=== PATIENT | male | born 1935 | race Caucasian/White ===

== ENCOUNTER 2017-03-12 20:56 | Inpatient (IN) | payer OTHER, MEDICARE ==
[~2017-03-12] VITALS: Ht 180.3 cm; Wt 97.8 kg
[~2017-03-12 20:56] MED LIST: ACT/15 PO; ASPI325T4 PO; CLC100 PO; CYAN500T13 PO; IBUP-1050 PO; SIMV20TA5 PO; TEMA30CA4 PO
--- NOTE | 2017-03-12 21:45 | EMERGENCY ROOM VISIT NOTE ---
History Report prepared by Pattie: Chelsea Harper Under the Supervision of: Dr. Yunier Thompson M.D. First contact with patient: 21:16 Chief Complaint: CHEST PAIN Stated Complaint: CHEST PAIN History of Present Illness The patient is an 81 year old male who presents to the Emergency Room with complaints of constant chest pressure that started tonight. Associated symptoms include fatigue. The patient was evaluated [facility] where he was found to have a high resting heart rate. The patient wore a 24 hour Halter Monitor yesterday. Monitor reading showed the patient's heart was "stopping", per patient's . Upon embroidery designer review today, the patient was sent directly to the ED. Patient notes that he was started on Diltazem 2 days ago, but was told by his embroidery designer today to stop taking this medication. Patient has a history of diabetes and colorectal cancer. He is in remission of this cancer at this time. Patient denies a history of atrial fibrillation. Patient denies shortness of breath, dizziness, weakness, or any additional associated symptoms. Source of History: patient, spouse/significant other Onset: Tonight Position: chest Timing: constant Modifying Factors (Worsening): other (None) Associated Symptoms: + fatigue, No SOB, No weakness Review of Systems See HPI for pertinent positives & negatives. A total of 10 systems reviewed and were otherwise negative. Past Medical & Surgical Medical Problems: (1) Colorectal cancer (2) Diabetes (3) Tachy-ifeoma syndrome Old medical records were reviewed. Nurse's notes were reviewed and I agree with. Family History Unknown Social History Smoking Status: Former Smoker Alcohol Use: none Drug Use: none Marital Status: Housing Status: lives with family Occupation Status: retired Current/Historical Medications Scheduled Albuterol Hfa (Ventolin Hfa), 2 PUFFS INH PRN UD Aspirin (Aspirin), 325 MG PO DAILY Cyanocobalamin (Vitamin B12 500MCG), 2,000 MCG PO DAILY Diltiazem Hcl Ext Rel (Tiazac), 120 MG PO DAILY Pioglitazone (Actos), 1 TAB PO DAILY Sildenafil Citrate (Viagra), 100 MG PO PRN Simvastatin (Zocor), 40 MG PO QPM Temazepam (Restoril), 30 MG PO HS Allergies Coded Allergies: Naproxen (Verified Allergy, Unknown, GI UPSET, 11/12/14) Zolpidem (Verified Adverse Reaction, Unknown, "WEIRD DREAMS", 11/12/14) Physical Exam Vital Signs Date Time Temp Pulse Resp B/P Pulse Ox O2 Delivery O2 Flow Rate FiO2 03/13/17 01:03 105 03/12/17 23:51 105 18 133/61 95 Room Air 03/12/17 21:37 94 03/12/17 21:15 93 Room Air 03/12/17 21:15 93 Room Air 03/12/17 21:00 36.6 139 18 140/86 94 Room Air Physical Exam General: Non ill appearing, older male in no acute distress. HEENT: Normal cephalic atraumatic. Pupils are equal round and reactive to light. Sclera anicteric. Extraocular movements are intact. Oropharynx is pink with moist mucous membranes. No swelling of the mouth lips or tongue. Neck: Supple with a midline trachea. No meningeal signs or stiffness, no JVD or bruits. No Stridor. Chest: Clear to auscultation bilaterally. No wheezes or rhonchi. No increased work of breathing. Heart: Irregularly irregular rhythm, mildly tachycardic in high 90s, low 100s. Abdomen: Soft nontender, nondistended without rebound guarding or rigidity. Extremities: No cyanosis clubbing or edema. No calf tenderness or assymetry Spine/Back. Non tender to palpation. No CVA tenderness Skin: Good turgor without rashes. Neurologic exam: Cranial nerves two through 12 are intact. Motor and sensation are intact and symmetrical throughout. Medical Decision & Procedures ER Provider Diagnostic Interpretation: X-ray results as stated below per interpretation by me and the radiologist: CHEST ONE VIEW PORTABLE CLINICAL HISTORY: Atypical chest pain COMPARISON STUDY: No previous studies for comparison. FINDINGS: The study was obtained in apical lordotic fashion. The heart is borderline enlarged. There is no failure. There is no lobar consolidation. There is indistinctness left heart border likely related to technical factors. There is equivocal 1 cm left basilar nodule. This potentially represents a nipple shadow. A nonemergent PA and lateral chest x-ray with nipple markers is recommended in follow-up.[ IMPRESSION: 1. No evidence of failure. No evidence of lobar consolidation 2. 1 cm left basilar nodule versus nipple shadow. Electronically signed by: George Ornelas M.D. 03/12/2017 10:02 PM Dictated Date/Time: 03/12/2017 10:00 PM Laboratory Results 03/12/17 21:15 Red Blood Count 4.91, Mean Corpuscular Volume 91.9, Mean Corpuscular Hemoglobin 30.5, Mean Corpuscular Hemoglobin Concent 33.3, Mean Platelet Volume 10.6, Neutrophils (%) (Auto) 61.8, Lymphocytes (%) (Auto) 28.3, Monocytes (%) (Auto) 5.3, Eosinophils (%) (Auto) 4.0, Basophils (%) (Auto) 0.3, Neutrophils # (Auto) 4.28, Lymphocytes # (Auto) 1.96, Monocytes # (Auto) 0.37, Eosinophils # (Auto) 0.28, Basophils # (Auto) 0.02 03/12/17 21:15 Test 03/12/17 21:15 03/12/17 21:44 White Blood Count 6.93 K/uL (4.8-10.8) Red Blood Count 4.91 M/uL (4.7-6.1) Hemoglobin 15.0 g/dL (14.0-18.0) Hematocrit 45.1 % (42-52) Mean Corpuscular Volume 91.9 fL (80-100) Mean Corpuscular Hemoglobin 30.5 pg (25-34) Mean Corpuscular Hemoglobin Concent 33.3 g/dl (32-36) Platelet Count 220 K/uL (130-400) Mean Platelet Volume 10.6 fL (7.4-10.4) Neutrophils (%) (Auto) 61.8 % Lymphocytes (%) (Auto) 28.3 % Monocytes (%) (Auto) 5.3 % Eosinophils (%) (Auto) 4.0 % Basophils (%) (Auto) 0.3 % Neutrophils # (Auto) 4.28 K/uL (1.4-6.5) Lymphocytes # (Auto) 1.96 K/uL (1.2-3.4) Monocytes # (Auto) 0.37 K/uL (0.11-0.59) Eosinophils # (Auto) 0.28 K/uL (0-0.5) Basophils # (Auto) 0.02 K/uL (0-0.2) RDW Standard Deviation 46.7 fL (36.4-46.3) RDW Coefficient of Variation 13.9 % (11.5-14.5) Immature Granulocyte % (Auto) 0.3 % Immature Granulocyte # (Auto) 0.02 K/uL (0.00-0.02) Prothrombin Time 11.2 SECONDS (9.0-12.0) Prothromb Time International Ratio 1.0 (0.9-1.1) Activated Partial Thromboplast Time 28.9 SECONDS (21.0-31.0) Partial Thromboplastin Ratio 1.1 Anion Gap 11.0 mmol/L (3-11) Est Creatinine Clear Calc Drug Dose 68.8 ml/min Estimated GFR () 81.4 Estimated GFR (Non- 70.3 BUN/Creatinine Ratio 19.3 (10-20) Calcium Level 9.1 mg/dl (8.5-10.1) Total Bilirubin 0.5 mg/dl (0.2-1) Direct Bilirubin 0.1 mg/dl (0-0.2) Aspartate Amino Transf (AST/SGOT) 14 U/L (15-37) Alanine Aminotransferase (ALT/SGPT) 22 U/L (12-78) Alkaline Phosphatase 81 U/L (45-117) Total Creatine Kinase 93 U/L (39-308) Creatine Kinase MB 2.4 ng/ml (0.5-3.6) Creatine Kinase MB Ratio 2.6 (0-3.0) Total Protein 7.6 gm/dl (6.4-8.2) Albumin 3.9 gm/dl (3.4-5.0) Lipase 86 U/L (73-393) Thyroid Stimulating Hormone (TSH) 2.080 uIu/ml (0.300-4.500) Bedside Troponin I 0.010 ng/ml (0-0.045) NI-Slb-C-Type Natriuretic Peptide 691 pg/ml (0-1800) Laboratory studies as stated above per my review. ECG Indication: chest pain Rate (beats per minute): 107 Rhythm: atrial fibrillation Findings: PVC (Occasional ) Comparison ECG Date: November 12, 2015 Change: A fib replaced normal sinus rhythm. ED Course 2117: Past medical records reviewed. The patient was evaluated in room C8, and a complete history and physical examination were performed. 2215: Upon reevaluation, the patient is resting comfortably. 2320: I discussed the treatment plan at this time with the patient and his family. They are agreeable. 2348: I discussed the patient's case with [place] [place] He will evaluate the patient for further management and care. Medical Decision Differentials include, but are not limited to; atrial fibrillation, acute coronary syndrome, CHF, sinus pauses. This patient comes in as described above. He was placed in room CVA. He is here for treatment and evaluation of sinus pauses. He has new onset A. fib and was started on calcium channel brandy the [place] put a Holter monitor on him which he finished this morning. He got called this evening and he had sinus pauses up to 5 seconds .he feels fine at present, he has minimal vague chest discomfort which he thinks he is just anxious about. He has no shortness breath .he's had no syncope or near-syncope. EKG shows A. fib with borderline tachycardia at times. He has no elevation of troponin or any evidence to suggest congestive heart failure, pneumonia, or pneumothorax. I do think he needs be admitted for cardiac evaluation and likely pacemaker placement given his Holter monitor. I have consulted Dr. Handley who saw the ER will admit him for these measures.. Consults Time Called: [phone] Consulting Physician: Dr. Blanca [place] Returned Call: [phone] I discussed the patient's case with Dr. Blanca [place] [place] He will evaluate the patient for further management and care. Impression Primary Impression: Atrial fibrillation Additional Impression: Sinus pause Scribe Attestation The scribe's documentation has been prepared under my direction and personally reviewed by me in its entirety. I confirm that the note above accurately reflects all work, treatment, procedures, and medical decision making performed by me. Departure Information Dispostion Being Evaluated By Hospitalist Parisa Vergara M.D. (PCP) Patient Instructions My [facility] Problem Qualifiers
[2017-03-12 21:51] LABS: BASO % 0.3 %; BASO ABS # 0.02 K/uL (0-0.2); COMPLETE YES; HEMATOCRIT 45.1 % (42-52); IG% 0.3 %; LYMPH % 28.3 %; LYMPH ABS # 1.96 K/uL (1.2-3.4); MEAN CELL VOLUME 91.9 fL (80-100); MEAN CORPUSCULAR HEMOGLOBIN 30.5 pg (25-34); MEAN CORPUSCULAR HGB CONC 33.3 g/dl (32-36); MEAN PLATELET VOLUME 10.6 fL (7.4-10.4); MONO % 5.3 %; NEUT % 61.8 %; PLATELET COUNT 220 K/uL (130-400); RED BLOOD COUNT 4.91 M/uL (4.7-6.1); WHITE BLOOD COUNT 6.93 K/uL (4.8-10.8)
[2017-03-12 21:53] LABS: PARTIAL THROMBOPLASTIN RATIO 1.1; PROTHROMBIN TIME (PATIENT) 11.2 SECONDS (9.0-12.0)
[2017-03-12 21:57] LABS: BUN/CREATININE RATIO 19.3 (10-20); POTASSIUM 3.6 mmol/L (3.5-5.1)
[2017-03-12 22:03] LABS: POINT OF CARE TROPONIN I 0.01 ng/ml (0-0.045)
--- NOTE | 2017-03-12 22:03 | DIAGNOSTIC IMAGING REPORT ---
CHEST ONE VIEW PORTABLE CLINICAL HISTORY: Atypical chest pain COMPARISON STUDY: No previous studies for comparison. FINDINGS: The study was obtained in apical lordotic fashion. The heart is borderline enlarged. There is no failure. There is no lobar consolidation. There is indistinctness left heart border likely related to technical factors. There is equivocal 1 cm left basilar nodule. This potentially represents a nipple shadow. A nonemergent PA and lateral chest x-ray with nipple markers is recommended in follow-up.[ IMPRESSION: 1. No evidence of failure. No evidence of lobar consolidation 2. 1 cm left basilar nodule versus nipple shadow. Electronically signed by: George Ornelas M.D. 03/12/2017 10:02 PM Dictated Date/Time: 03/12/2017 10:00 PM
[2017-03-12 22:08] LABS: CKMB/CK RATIO 2.6 (0-3.0); THYROID STIMULATING HORMONE 2.08 uIu/ml (0.300-4.500)
[2017-03-12 22:26] LABS: CALCIUM 9.1 mg/dl (8.5-10.1)
[2017-03-12] MEDS ORDERED: DILT120C68 PO (22:29)
[2017-03-12] MEDS ORDERED: VNTHFA/IN INH (22:29)
[2017-03-12] MEDS ORDERED: ACT30 PO (22:29)
[2017-03-12] MEDS ORDERED: SILD100T PO (22:29)
[2017-03-12] MEDS ORDERED: SIMV40TA2 PO (22:29)
--- NOTE | 2017-03-12 23:52 | History and Physical ---
History & Physical Date & Time of Service: March 12, 2017 at 23:52 Chief Complaint: Chest Pain Primary Care Physician: Parisa Owens M.D. History of Present Illness Source: patient, family, spouse The patient is an 81-year-old male who presents to the emergency department with constant chest pressure and fatigue that began earlier in the evening prior to arrival. He went [facility] for [facility] assessment 4 days ago, and was found to have tachycardia at rest. The patient had been started empirically on Cardizem CD 120 mg by mouth daily. He wore a 24-hour Holter monitor yesterday, which was interpreted by Dr. Gates in [place] on the day of admission as showing up to 5 second pauses, at which time he was told by the cuff runner to stop the diltiazem and to come to the emergency department for assessment. Past Medical/Surgical History Medical Problems: (1) Colorectal cancer Status: Resolved (2) Diabetes Status: Chronic Family History Unknown Social History Smoking Status: Former Smoker Alcohol Use: none Drug Use: none Marital Status: Housing status: lives with family Occupational Status: retired Immunizations History of Influenza Vaccine: N/A History of Tetanus Vaccine?: Yes History of Pneumococcal: Yes Pneumococcal Date: Aug 14, 2008 History of Hepatitis B Vaccine: No Multi-Drug Resistant Organisms History of MDRO: No Allergies Coded Allergies: Naproxen (Verified Allergy, Unknown, GI UPSET, 11/12/14) Zolpidem (Verified Adverse Reaction, Unknown, "WEIRD DREAMS", 11/12/14) Home Medications Scheduled Albuterol Hfa (Ventolin Hfa), 2 PUFFS INH PRN UD Aspirin (Aspirin), 325 MG PO DAILY Cyanocobalamin (Vitamin B12 500MCG), 2,000 MCG PO DAILY Diltiazem Hcl Ext Rel (Tiazac), 120 MG PO DAILY Pioglitazone (Actos), 1 TAB PO DAILY Sildenafil Citrate (Viagra), 100 MG PO PRN Simvastatin (Zocor), 40 MG PO QPM Temazepam (Restoril), 30 MG PO HS Review of Systems Constitutional: No chills, No fatigue, No fever, No problem reported, No sweats , No weakness, No weight loss Eyes: No diplopia, No discharge, No eye pain, No problem reported, No redness, No worsening of vision ENT: No dental problems, No hearing loss, No nasal symptoms, No problem reported, No sore throat, No tinnitus, No trouble swallowing, No unusual epistaxis Respiratory: No cough, No dyspnea at rest, No dyspnea on exertion, No hemoptysis, No problem reported, No shortness of breath, No sputum, No wheezing Cardiovascular: + chest pain, + palpitations, No PND, No claudication, No edema , No orthopnea Abdomen: No GI bleeding, No constipation, No diarrhea, No nausea, No pain, No problem reported, No vomiting Musculoskeletal: No calf pain, No joint pain, No muscle pain, No problem reported, No swelling Genitourinary - Male: No dysuria, No hematuria, No impotence, No lesions, No penile discharge, No problem reported, No urinary frequency, No urinary hesitancy, No urinary incontinence, No urinary retention, No urinary urgency Neurologic: No balance problems, No memory loss, No numbness/tingling, No paralysis, No problem reported, No vertigo, No weakness Psychiatric: No anhedonism, No anxiety, No depression symptoms, No insomnia, No problem reported, No substance abuse Endocrine: No excessive thirst, No excessive urination, No fatigue, No problem reported Hematologic / Lymphatic: No abnormal bleeding/bruising, No clotting problems, No night sweats, No problem reported, No swollen lymph nodes Integumentary: No bleeding, No color change, No itch, No new/changing skin lesions, No problem reported, No rash Allergic / Immunologic: No environmental allergies, No food allergies, No frequent infections, No hives, No pet sensitivities, No poor healing, No problem reported, No prolonged convalescence, No seasonal allergies Physical Exam Vital Signs Date Time Temp Pulse Resp B/P Pulse Ox O2 Delivery O2 Flow Rate FiO2 03/12/17 23:51 105 18 133/61 95 Room Air 03/12/17 21:37 94 03/12/17 21:15 93 Room Air 03/12/17 21:15 93 Room Air 03/12/17 21:00 36.6 139 18 140/86 94 Room Air General Appearance: WD/WN, no apparent distress Head: normocephalic, atraumatic Eyes: normal inspection, PERRL, EOMI, sclerae normal ENT: normal ENT inspection, hearing grossly normal, pharynx normal Neck: supple, no adenopathy, thyroid normal, no JVD, no carotid bruits, trachea midline Respiratory/Chest: chest non-tender, lungs clear, normal breath sounds, no respiratory distress, no accessory muscle use Cardiovascular: no edema, no gallop, no JVD, no murmur, normal peripheral pulses, + irregularly irregular (minor) Abdomen/GI: normal bowel sounds, non tender, soft, no organomegaly, no pulsatile mass Back: normal inspection, no CVA tenderness, no muscle spasm, normal range of motion Extremities/Musculoskelatal: normal inspection, no calf tenderness, normal capillary refill, no pedal edema, normal range of motion, non-tender Neurologic/Psych: document control assistant II-XII nml as tested, no motor/sensory deficits, alert, normal mood/affect, normal reflexes, oriented x 3 Skin: normal color, warm/dry, no rash Lymphatic: no adenopathy Diagnostics Laboratory Results Results Past 24 Hours Test 03/12/17 21:15 03/12/17 21:44 Range/Units White Blood Count 6.93 4.8-10.8 K/uL Red Blood Count 4.91 4.7-6.1 M/uL Hemoglobin 15.0 14.0-18.0 g/dL Hematocrit 45.1 42-52 % Mean Corpuscular Volume 91.9 80-100 fL Mean Corpuscular Hemoglobin 30.5 25-34 pg Mean Corpuscular Hemoglobin Concent 33.3 32-36 g/dl Platelet Count 220 130-400 K/uL Mean Platelet Volume 10.6 7.4-10.4 fL Neutrophils (%) (Auto) 61.8 % Lymphocytes (%) (Auto) 28.3 % Monocytes (%) (Auto) 5.3 % Eosinophils (%) (Auto) 4.0 % Basophils (%) (Auto) 0.3 % Neutrophils # (Auto) 4.28 1.4-6.5 K/uL Lymphocytes # (Auto) 1.96 1.2-3.4 K/uL Monocytes # (Auto) 0.37 0.11-0.59 K/uL Eosinophils # (Auto) 0.28 0-0.5 K/uL Basophils # (Auto) 0.02 0-0.2 K/uL RDW Standard Deviation 46.7 36.4-46.3 fL RDW Coefficient of Variation 13.9 11.5-14.5 % Immature Granulocyte % (Auto) 0.3 % Immature Granulocyte # (Auto) 0.02 0.00-0.02 K/uL Prothrombin Time 11.2 9.0-12.0 SECONDS Prothromb Time International Ratio 1.0 0.9-1.1 Activated Partial Thromboplast Time 28.9 21.0-31.0 SECONDS Partial Thromboplastin Ratio 1.1 Sodium Level 140 136-145 mmol/L Potassium Level 3.6 3.5-5.1 mmol/L Chloride Level 103 98-107 mmol/L Carbon Dioxide Level 26 21-32 mmol/L Anion Gap 11.0 3-11 mmol/L Blood Urea Nitrogen 19 7-18 mg/dl Creatinine 1.00 0.60-1.40 mg/dl Est Creatinine Clear Calc Drug Dose 68.8 ml/min Estimated GFR () 81.4 Estimated GFR (Non- 70.3 BUN/Creatinine Ratio 19.3 10-20 Random Glucose 202 70-99 mg/dl Calcium Level 9.1 8.5-10.1 mg/dl Total Bilirubin 0.5 0.2-1 mg/dl Direct Bilirubin 0.1 0-0.2 mg/dl Aspartate Amino Transf (AST/SGOT) 14 15-37 U/L Alanine Aminotransferase (ALT/SGPT) 22 12-78 U/L Alkaline Phosphatase 81 45-117 U/L Total Creatine Kinase 93 39-308 U/L Creatine Kinase MB 2.4 0.5-3.6 ng/ml Creatine Kinase MB Ratio 2.6 0-3.0 Total Protein 7.6 6.4-8.2 gm/dl Albumin 3.9 3.4-5.0 gm/dl Lipase 86 73-393 U/L Thyroid Stimulating Hormone (TSH) 2.080 0.300-4.500 uIu/ml Bedside Troponin I 0.010 0-0.045 ng/ml IV-Vck-I-Type Natriuretic Peptide 691 0-1800 pg/ml Diagnostic Radiology Patient Name: ANGELITA BENSON Unit Number: [id number] Dictated: 03/12/172199 Transcribed: 03/12/172199 ARG Printed Date/Time: [~ rep prt dt]/[~ rep prt tm] [~ rep ct labl] - [~ rep ct ivnm] [facility] [place] [address] Dictated: 03/12/172199 Transcribed: 03/12/172199 ARG Printed Date/Time: [~ rep prt dt]/[~ rep prt tm] [~ rep ct labl] - [~ rep ct ivnm] CHEST ONE VIEW PORTABLE CLINICAL HISTORY: Atypical chest pain COMPARISON STUDY: No previous studies for comparison. FINDINGS: The study was obtained in apical lordotic fashion. The heart is borderline enlarged. There is no failure. There is no lobar consolidation. There is indistinctness left heart border likely related to technical factors. There is equivocal 1 cm left basilar nodule. This potentially represents a nipple shadow. A nonemergent PA and lateral chest x-ray with nipple markers is recommended in follow-up.[ IMPRESSION: 1. No evidence of failure. No evidence of lobar consolidation 2. 1 cm left basilar nodule versus nipple shadow. Electronically signed by: George Ornelas M.D. 03/12/2017 10:02 PM Dictated Date/Time: 03/12/2017 10:00 PM The status of this report is Signed. Draft = Not yet reviewed or approved by Radiologist. Signed = Reviewed and approved by Radiologist. <AttendingPhy></AttendingPhy> <FamilyPhy>Parisa Owens M.D.</FamilyPhy> <PrimaryPhy>Parisa Owens M.D.</PrimaryPhy> <UnitNumber>[id number]</ UnitNumber> <VisitNumber>[id number]</VisitNumber> <PatientName>ANGELITA BENSON</PatientName> <DateOfBirth>1935</DateOfBirth> <Location>[facility]</Location > <ServiceDate>03/12/17</ServiceDate> <MNE>ESINDI</MNE> <OrderingPhy>Yunier Thompson M.D.</OrderingPhy> <OrderingPhyMNE>f rep ord dr sheppard</OrderingPhyMNE> < DictatingPhyMNE>f rep dict dr sheppard</DictatingPhyMNE> <CCListMNE>f rep ct yanete</ CCListMNE> <AdmittingPhyMNE>f pt admit dr sheppard</AdmittingPhyMNE> <AttendingPhyMNE >f pt attend dr sheppard</AttendingPhyMNE> <ConsultingPhyMNE>f pt consult dr sheppard</ConsultingPhyMNE> <FamilyPhyMNE>f pt fam dr sheppard</FamilyPhyMNE> <OtherPhyMNE>f pt other dr sheppard</OtherPhyMNE> < PrimaryPhyMNE>f pt prim care dr sheppard</PrimaryPhyMNE> <ReferringPhyMNE>f pt referring dr sheppard</ReferringPhyMNE> EKG EKG shows atrial fibrillation with RVR at 107 bpm, with old anteroseptal infarct , in no acute ST-T changes. Impression Assessment and Plan Tachybradycardia syndrome--patient's initial episodes of increased heart rate were found on a routine physical examination. He became bradycardic with pauses when placed on Cardizem CD [address] EKG shows atrial fibrillation with RVR, however, there was no mention to my knowledge and the 24- hour monitor of atrial fibrillation events. The patient be admitted to telemetry unit for serial cardiac enzymes, cardiac rhythm monitoring. We'll hold off ordering a repeat echocardiogram as one was just done in [place], and will try to get all records sent here. We'll consult cardiology Dr. Story. Continue aspirin 325 mg by mouth daily and hold diltiazem extended release heart 20 mg by mouth daily. Diabetes mellitus--hold pioglitazone daily. Place on Accu-Cheks before meals and at bedtime with NovoLog coverage. Hypercholesterolemia--continue simvastatin 40 mg every afternoon. Insomnia--continue temazepam 30 will grams by mouth at bedtime. Vitamin B12 deficiency--continue supplement thousand micrograms by mouth daily. COPD--hold Ventolin HFA. Level of Care Telemetry Advanced Directives Existing Advance Directive: No Existing Living Will: No Existing Power of Processing Supervisor: No Resuscitation Status FULL RESUSCITATION VTE Prophylaxis Given or contraindicated: SCD's
[2017-03-13] VITALS (7 sets, daily range): BP systolic 98–145; BP diastolic 58–89; PULSE 83–142; TEMP 36.3–36.7; O2SAT 93–97; Ht 180.3 cm; Wt 97.8 kg
[2017-03-13] MEDS ORDERED: GLUCOSE 40% GEL 15 GM TUBE PO PRN (01:30)
[2017-03-13] MEDS ORDERED: NITROGLYCERIN 0.4 MG SL PER TAB CHARGE SL PRN (01:30)
[2017-03-13] MEDS ORDERED: GLUCOSE 10 TABS/TUBE PO PRN (01:30)
[2017-03-13] MEDS ORDERED: ACETAMINOPHEN 325 MG TAB PO PRN (01:30)
[2017-03-13] MEDS ORDERED: GLUCAGON FOR INJ 1 MG VIAL SQ PRN (01:30)
[2017-03-13] MEDS ORDERED: DEXTROSE 50% 50 ML SYR IV PRN (01:30)
[2017-03-13] MEDS ORDERED: ONDANSETRON INJ 2 MG/ML 2 ML VIAL IV PRN (01:30)
[2017-03-13] MEDS: ASPIRIN 325 MG ECTAB PO SCH (08:19)
[2017-03-13] MEDS: CYANOCOBALAMIN 500 MCG TAB (VIT B-12) PO SCH (08:20)
[2017-03-13] MEDS: INSULIN ASPART 100 UNITS/ML 3 ML PEN SC SCH ×4 (08:23→21:00)
[2017-03-13 09:13] LABS: HEMATOCRIT 40.9 % (42-52); MEAN CELL VOLUME 91.9 fL (80-100); MEAN CORPUSCULAR HEMOGLOBIN 30.1 pg (25-34); MEAN CORPUSCULAR HGB CONC 32.8 g/dl (32-36); MEAN PLATELET VOLUME 10.3 fL (7.4-10.4); PLATELET COUNT 199 K/uL (130-400); RED BLOOD COUNT 4.45 M/uL (4.7-6.1); WHITE BLOOD COUNT 5.09 K/uL (4.8-10.8)
[2017-03-13 09:37] LABS: BUN/CREATININE RATIO 25.9 (10-20); CALCIUM 8.3 mg/dl (8.5-10.1); CREATININE 0.9 mg/dl (0.60-1.40); POTASSIUM 3.7 mmol/L (3.5-5.1)
[2017-03-13 10:35] LABS: MAGNESIUM 2.1 mg/dl (1.8-2.4)
[2017-03-13 10:57] LABS: CKMB/CK RATIO 2.6 (0-3.0)
--- NOTE | 2017-03-13 11:16 | CARDIOLOGY CONSULTATION ---
DATE OF CONSULTATION: 03/13/2017 DATE OF CONSULTATION: 03/13/2017. REQUESTING PHYSICIAN: Dr. Adam Blanca. REASON FOR CONSULTATION: Atrial fibrillation with a rapid ventricular response and subsequent pauses. CIRCUIT COURT JUDGE: Costa Collins D.O., [facility]. Dear Dr. Blanca: Thank you for requesting cardiology consultation on Kp in regards to the [facility] [place] He went for a regular evaluation and was found to be in atrial fibrillation with a rapid ventricular response. Those records are currently unavailable, but it sounds like his heart rate was in the 130s and 140s. He was placed on diltiazem at that point, an echocardiogram and Holter monitor were ordered. After the Holter monitor was returned, he received a phone call noting that he had 5 second pauses. The timing of those is unclear as to whether they occurred while he was sleeping or during the day and diltiazem was stopped and he was told to come to the closest Emergency Room. He denies any chest pain, chest pressure, chest heaviness. He describes some fatigue over the last month or so. He describes a viral illness about a month ago where he had some GI distress and abdominal discomfort and he describes minimal amount of shortness of breath since then. I did question him as to climbing stairs, he notes he has a basement on the second floor and has been able to climb 2 flights of stairs without significant difference. He denies any presyncope, syncope. He has had no lightheadedness or dizziness. He denies any chest pain or chest pressure. He is able to walk to the mailbox. He is able to walk in a grocery store, all that without any significant change. He denies a cough, fevers, chills, sweats, bleeding, bruising, dark stools, black stools. He does have chronically loose stools since he was treated for colon cancer. He does note that he bruises easily. He notes some musculoskeletal discomfort. The rest of review of systems otherwise negative. PAST MEDICAL HISTORY: 1. Status post resection for colon cancer. He did not require chemotherapy or radiation. 2. Diabetes mellitus type 2. 3. Atrial fibrillation of unknown duration. 4. Holter monitor with 5 second pauses and on the monitor here he had a second pause at 6:00 a.m. ALLERGIES: NAPROXEN AND ZOLPIDEM. MEDICATIONS: Reviewed in electronic medical record. SOCIAL HISTORY: He worked in [employer]. He lives with his family. He is . He is retired. Denies any alcohol or drug use. He did smoke a pack per day for 40+ years, stopping approximately 20 years ago. PHYSICAL EXAMINATION: GENERAL: He is awake, alert, oriented x3. He is in no acute distress. He looks his stated age, although seems to be more active than most men his age. VITAL SIGNS: His heart rate 95, respirations 18, blood pressure 128/73. Sat 93% on room air. HEAD, EYES, EARS, NOSE, AND THROAT: 2+ carotid upstrokes. No carotid bruits. Jugular venous pressure appeared normal. Sclerae is anicteric. His hearing is normal. LUNGS: Clear to auscultation bilaterally. No rales, rhonchi or wheezing. HEART: Irregular rate and rhythm (tachycardic). No murmurs, rubs or gallops. ABDOMEN: Soft, nontender, nondistended, positive bowel sounds. EXTREMITIES: No clubbing, cyanosis or edema. PSYCHIATRIC: His affect appeared appropriate. NEUROLOGIC: He is awake, alert and oriented x3. DIAGNOSTIC STUDIES: His BMP is normal. His troponin is negative. His ProBNP is normal. His hemoglobin is 13.4, platelet count is 199. His coags were normal. EKG in the Emergency Room atrial fibrillation with a rapid ventricular response at 107 beats per minute, right axis deviation, possible anterior septal VT, age indeterminate. IMPRESSIONS: 1. Atrial fibrillation with a rapid ventricular response. 2. Documented 4-second pause here, although he notes he did not sleep very much last night and believes he was awake at 6:00 a.m. 3. History of a 5 second pause on the Holter from the [facility]. 4. CHADS2-VASc score of 3, that being his age and diabetes. As I discussed with Kp the question is, is he symptomatic with his atrial fibrillation and is he just symptomatic because he has a rapid ventricular response or is he symptomatic because he lost his atrial kick. I discussed it is important to get his echocardiogram report. If his left atrium is significantly dilated then it is unlikely even if we attempted cardioversion that he would stay in sinus rhythm and if that is the case in essence, he has tachybrady syndrome and a pacemaker would be recommended in order to add AV mine blockers to control his rate when he is very fast and given his elevated CHADS2-VASc score, he would need chronic anticoagulation. As best I can tell, he is minimally symptomatic from his Afib and most likely it is related to a rapid ventricular response. We will obtain his echocardiogram as well as his Holter monitor report and then further recommendations will be forthcoming. At this point, I would start low dose AV mine blockers and I would hold off anticoagulating him with 1 of the NOAC's until we determine proceeding with a pacemaker. Thank you for allowing us to participate in his care. All this was discussed with him in detail. EVGENY
--- NOTE | 2017-03-13 11:35 | Hospitalist Progress Note ---
Hospitalist Progress Note Date of Service March 13, 2017. (Mallory Main ., HENRI) Subjective Pt evaluation today including: conversation w/ patient, physical exam, chart review, lab review, review of studies, review of inpatient medication list Pain: None PO Intake: Tolerating PO diet Voiding: no voiding problems Patient reports feeling well. He states that he had felt weak and fatigued earlier, but this has since improved. He no longer complains of any chest pain. He does report some intermittent palpitations. He denies any lightheadedness/dizziness, even upon standing. The patient denies fevers, chills, sweats, chest pain, claudication, cough, wheezing, shortness of breath at rest, dyspnea on exertion, nausea, vomiting, abdominal pain, dysuria, hematuria, urinary retention, paralysis, weakness, numbness and tingling. Additional Comments: See HPI for pertinent positives and negatives. All other systems reviewed and negative. (Mallory Main ., GEORGETTEC) Objective Vital Signs Date Time Temp Pulse Resp B/P Pulse Ox O2 Delivery O2 Flow Rate FiO2 03/13/17 11:05 36.5 127 18 145/89 97 Room Air 03/13/17 08:21 36.7 95 18 128/73 93 Room Air 03/13/17 08:00 Room Air 03/13/17 04:00 93 Room Air 03/13/17 02:27 36.5 83 18 127/58 93 Room Air 03/13/17 01:32 105 16 133/62 95 Room Air 03/13/17 01:03 105 03/12/17 23:51 105 18 133/61 95 Room Air 03/12/17 21:37 94 03/12/17 21:15 93 Room Air 03/12/17 21:15 93 Room Air 03/12/17 21:00 36.6 139 18 140/86 94 Room Air (Mallory Main PA-C) Physical Exam Notes: General appearance: Well-developed, well-nourished, no apparent distress Head: Normocephalic, atraumatic Eyes: Normal inspection, PERRL, EOMI ENT: Normal ENT inspection, hearing grossly normal, pharynx normal Neck: Supple, no JVD, trachea midline Respiratory/Chest: Lungs clear to auscultation, normal breath sounds, no respiratory distress Cardiovascular: +Irregularly irregular, tachycardic. No gallop, no murmur Abdomen/GI: Normal bowel sounds, non-tender, soft Extremities/Musculoskeletal: Normal inspection, no calf tenderness, no pedal edema Neurological/Psych: Alert, normal mood/affect, oriented x 3 Skin: Normal color, warm/dry, no rash (Mallory Main ., HENRI) Laboratory Results Last 24 Hours Test 03/12/17 21:15 03/12/17 21:44 03/13/17 06:58 03/13/17 09:00 White Blood Count 6.93 K/uL 5.09 K/uL Red Blood Count 4.91 M/uL 4.45 M/uL Hemoglobin 15.0 g/dL 13.4 g/dL Hematocrit 45.1 % 40.9 % Mean Corpuscular Volume 91.9 fL 91.9 fL Mean Corpuscular Hemoglobin 30.5 pg 30.1 pg Mean Corpuscular Hemoglobin Concent 33.3 g/dl 32.8 g/dl Platelet Count 220 K/uL 199 K/uL Mean Platelet Volume 10.6 fL 10.3 fL Neutrophils (%) (Auto) 61.8 % Lymphocytes (%) (Auto) 28.3 % Monocytes (%) (Auto) 5.3 % Eosinophils (%) (Auto) 4.0 % Basophils (%) (Auto) 0.3 % Neutrophils # (Auto) 4.28 K/uL Lymphocytes # (Auto) 1.96 K/uL Monocytes # (Auto) 0.37 K/uL Eosinophils # (Auto) 0.28 K/uL Basophils # (Auto) 0.02 K/uL RDW Standard Deviation 46.7 fL 47.3 fL RDW Coefficient of Variation 13.9 % 14.0 % Immature Granulocyte % (Auto) 0.3 % Immature Granulocyte # (Auto) 0.02 K/uL Prothrombin Time 11.2 SECONDS Prothromb Time International Ratio 1.0 Activated Partial Thromboplast Time 28.9 SECONDS Partial Thromboplastin Ratio 1.1 Sodium Level 140 mmol/L 141 mmol/L Potassium Level 3.6 mmol/L 3.7 mmol/L Chloride Level 103 mmol/L 105 mmol/L Carbon Dioxide Level 26 mmol/L 31 mmol/L Anion Gap 11.0 mmol/L 5.0 mmol/L Blood Urea Nitrogen 19 mg/dl 23 mg/dl Creatinine 1.00 mg/dl 0.90 mg/dl Est Creatinine Clear Calc Drug Dose 68.8 ml/min 76.3 ml/min Estimated GFR () 81.4 92.5 Estimated GFR (Non- 70.3 79.8 BUN/Creatinine Ratio 19.3 25.9 Random Glucose 202 mg/dl 168 mg/dl Calcium Level 9.1 mg/dl 8.3 mg/dl Total Bilirubin 0.5 mg/dl Direct Bilirubin 0.1 mg/dl Aspartate Amino Transf (AST/SGOT) 14 U/L Alanine Aminotransferase (ALT/SGPT) 22 U/L Alkaline Phosphatase 81 U/L Total Creatine Kinase 93 U/L Creatine Kinase MB 2.4 ng/ml Creatine Kinase MB Ratio 2.6 Total Protein 7.6 gm/dl Albumin 3.9 gm/dl Lipase 86 U/L Thyroid Stimulating Hormone (TSH) 2.080 uIu/ml Bedside Troponin I 0.010 ng/ml MG-Hqu-D-Type Natriuretic Peptide 691 pg/ml Bedside Glucose 119 mg/dl Magnesium Level 2.1 mg/dl Test 03/13/17 10:10 Total Creatine Kinase 77 U/L Creatine Kinase MB 2.0 ng/ml Creatine Kinase MB Ratio 2.6 Troponin I 0.017 ng/ml (Mallory Main ., GEORGETTEC) Assessment and Plan 81-year-old male with a history of diabetes mellitus, hyperlipidemia, COPD, and insomnia who presented to the ED with chest pain and fatigue. [facility] and was found to have tachycardia at rest. He was started on Cardizem at that time. He was also put on 24-hour Holter monitor which revealed 5 second pauses, at which time his Cardizem was stopped. The patient was found to be in A. fib with RVR upon arrival to the ED. The patient denies any previous history of A. fib, but notes that he's been more fatigued in the last month. Tachybradycardia syndrome -Admit to telemetry for cardiac monitoring. Patient has remained in A. fib with heart rate mostly in the low 100s with spikes up to the 130s. Patient also had a 4.4 second pause overnight. Pt in 130s during my exam -Hold Cardizem -Consult cardiology, appreciate recs -Recent echocardiogram on 03/10, will obtain records -Cardiac enzymes negative 2. Third set pending -Continue aspirin 325 mg PO qd Afib with RVR--stable, pt currently asymptomatic -Telemetry findings as above -Appreciate cardiology recs -Unknown how long patient has been in this rhythm Diabetes mellitus type 2--no HgbA1c on record -Hold pioglitazone -Insulin sliding scale -Check BSGs q ac and qhs -Check HgbA1c HLD -Continue simvastatin 40 mg PO qd COPD--stable -Hold Ventolin for now due to tachycardia Insomnia- -Continue temazepam 30 mg PO qhs DVT prophylaxis -Enoxaparin 40 mg SC q24h -SCDs Code Status -Level I, FULL RESUSCITATION STATUS This chart was completed in part utilizing [employer] Speech Voice Recognition software. Attempts were made to minimize the grammatical errors, random word insertions, pronoun errors and incomplete sentences. Any formal questions or concerns about the content, text or information contained within the body of this dictation should be directly addressed to the provider for clarification. (Mallory Main ., PA-C) I agree with PA assessment and plan and have seen and examined pt myself Resting comfortably in bed Tachycardia noted No chest pain or palpitations or shortness of breath Awaiting outpatient records Cardiology consulted and awaiting ECHO report ?if need cardioversion vs pacemaker (Joselito Lujan, D.O.)
[2017-03-13 13:21] LABS: ESTIMATED AVERAGE GLUCOSE 154 mg/dl; HA1C FLAG Normal (Normal)
[2017-03-13] MEDS: ENOXAPARIN 40 MG/0.4 ML SYR SQ SCH (14:19)
[2017-03-13] MEDS ORDERED: METOPROLOL TARTRATE 25 MG TAB PO STA (17:25)
[2017-03-13] MEDS ORDERED: NURSING VERBAL MED ORDER ONE (17:30)
[2017-03-13 18:10] LABS: CKMB/CK RATIO 2.8 (0-3.0)
[2017-03-13] MEDS ORDERED: METOPROLOL TARTRATE 25 MG TAB PO SCH (21:00)
[2017-03-13] MEDS: SIMVASTATIN 40 MG TAB PO SCH (21:22)
[2017-03-13] MEDS: TEMAZEPAM 15 MG CAP PO SCH (21:25)
[2017-03-14] VITALS (7 sets, daily range): BP systolic 112–131; BP diastolic 63–81; PULSE 86–139; TEMP 36.5–37.3; O2SAT 94–97
[2017-03-14 06:18] LABS: BASO % 0.6 %; BASO ABS # 0.03 K/uL (0-0.2); COMPLETE YES; EOS % 5.7 %; HEMATOCRIT 39.3 % (42-52); IG% 0.2 %; LYMPH % 27.7 %; MEAN CELL VOLUME 92.9 fL (80-100); MEAN CORPUSCULAR HGB CONC 33.3 g/dl (32-36); MONO % 10.5 %; NEUT % 55.3 %; PLATELET COUNT 183 K/uL (130-400); RED BLOOD COUNT 4.23 M/uL (4.7-6.1); WHITE BLOOD COUNT 5.41 K/uL (4.8-10.8)
[2017-03-14 06:39] LABS: BUN/CREATININE RATIO 27.7 (10-20); CALCIUM 8.2 mg/dl (8.5-10.1); CREATININE 0.89 mg/dl (0.60-1.40); MAGNESIUM 2.2 mg/dl (1.8-2.4); POTASSIUM 3.9 mmol/L (3.5-5.1)
[2017-03-14] MEDS: CYANOCOBALAMIN 500 MCG TAB (VIT B-12) PO SCH (08:00)
[2017-03-14] MEDS: ASPIRIN 325 MG ECTAB PO SCH (08:00)
[2017-03-14] MEDS: INSULIN ASPART 100 UNITS/ML 3 ML PEN SC SCH ×4 (08:03→20:55)
--- NOTE | 2017-03-14 08:30 | Hospitalist Progress Note ---
Hospitalist Progress Note Date of Service March 14, 2017. (Mallory Main ., GEORGETTEC) Subjective Pt evaluation today including: conversation w/ patient, physical exam, chart review, lab review, review of inpatient medication list Pain: Chest pressure, denies "pain" PO Intake: Tolerating PO diet Voiding: no voiding problems Patient reports feeling somewhat more fatigued today compared to yesterday. He states that the palpitations have also gotten worse. He complains of dyspnea on exertion, which he was not experiencing yesterday. He denies any chest pain , but when asked further, admits to some mild chest pressure on the left side of his chest. The patient denies fevers, chills, sweats, claudication, cough, wheezing, shortness of breath at rest, nausea, vomiting, abdominal pain, dysuria , hematuria, urinary retention, paralysis, motor weakness, numbness and tingling. Additional Comments: See HPI for pertinent positives and negatives. All other systems reviewed and negative. (Mallory Main, GEORGETTEC) Objective Vital Signs Date Time Temp Pulse Resp B/P Pulse Ox O2 Delivery O2 Flow Rate FiO2 03/14/17 07:22 36.6 119 18 113/73 96 Room Air 03/14/17 04:09 Room Air 03/14/17 04:00 36.8 86 18 117/73 97 03/14/17 00:04 Room Air 03/13/17 23:43 36.5 91 16 98/60 96 Room Air 03/13/17 20:00 Room Air 03/13/17 18:50 36.5 97 20 129/74 94 Room Air 03/13/17 16:05 36.3 142 20 128/83 93 Room Air 03/13/17 16:00 Room Air 03/13/17 12:00 Room Air 03/13/17 11:05 36.5 127 18 145/89 97 Room Air 03/13/17 08:21 36.7 95 18 128/73 93 Room Air (Mallory Main PA-C) Physical Exam Notes: General appearance: Well-developed, well-nourished, no apparent distress Head: Normocephalic, atraumatic Eyes: Normal inspection, PERRL, EOMI ENT: Normal ENT inspection, hearing grossly normal, pharynx normal Neck: Supple, no JVD, trachea midline Respiratory/Chest: Lungs clear to auscultation, normal breath sounds, no respiratory distress Cardiovascular: +Irregularly irregular, tachycardic. No gallop, no murmur Abdomen/GI: Normal bowel sounds, non-tender, soft Extremities/Musculoskeletal: Normal inspection, no calf tenderness, no pedal edema Neurological/Psych: Alert, normal mood/affect, oriented x 3 Skin: Normal color, warm/dry, no rash (Mallory Main ., HENRI) Laboratory Results Last 24 Hours Test 03/13/17 09:00 03/13/17 10:10 03/13/17 11:01 03/13/17 16:42 White Blood Count 5.09 K/uL Red Blood Count 4.45 M/uL Hemoglobin 13.4 g/dL Hematocrit 40.9 % Mean Corpuscular Volume 91.9 fL Mean Corpuscular Hemoglobin 30.1 pg Mean Corpuscular Hemoglobin Concent 32.8 g/dl RDW Standard Deviation 47.3 fL RDW Coefficient of Variation 14.0 % Platelet Count 199 K/uL Mean Platelet Volume 10.3 fL Sodium Level 141 mmol/L Potassium Level 3.7 mmol/L Chloride Level 105 mmol/L Carbon Dioxide Level 31 mmol/L Anion Gap 5.0 mmol/L Blood Urea Nitrogen 23 mg/dl Creatinine 0.90 mg/dl Est Creatinine Clear Calc Drug Dose 76.3 ml/min Estimated GFR () 92.5 Estimated GFR (Non- 79.8 BUN/Creatinine Ratio 25.9 Random Glucose 168 mg/dl Estimated Average Glucose 154 mg/dl Hemoglobin A1c 7.0 % Calcium Level 8.3 mg/dl Magnesium Level 2.1 mg/dl Total Creatine Kinase 77 U/L Creatine Kinase MB 2.0 ng/ml Creatine Kinase MB Ratio 2.6 Troponin I 0.017 ng/ml Bedside Glucose 96 mg/dl 147 mg/dl Test 03/13/17 17:31 03/13/17 20:30 03/14/17 05:00 03/14/17 06:54 Total Creatine Kinase 64 U/L Creatine Kinase MB 1.8 ng/ml Creatine Kinase MB Ratio 2.8 Troponin I < 0.015 ng/ml Bedside Glucose 95 mg/dl 115 mg/dl White Blood Count 5.41 K/uL Red Blood Count 4.23 M/uL Hemoglobin 13.1 g/dL Hematocrit 39.3 % Mean Corpuscular Volume 92.9 fL Mean Corpuscular Hemoglobin 31.0 pg Mean Corpuscular Hemoglobin Concent 33.3 g/dl Platelet Count 183 K/uL Mean Platelet Volume 11.0 fL Neutrophils (%) (Auto) 55.3 % Lymphocytes (%) (Auto) 27.7 % Monocytes (%) (Auto) 10.5 % Eosinophils (%) (Auto) 5.7 % Basophils (%) (Auto) 0.6 % Neutrophils # (Auto) 2.99 K/uL Lymphocytes # (Auto) 1.50 K/uL Monocytes # (Auto) 0.57 K/uL Eosinophils # (Auto) 0.31 K/uL Basophils # (Auto) 0.03 K/uL RDW Standard Deviation 48.3 fL RDW Coefficient of Variation 14.2 % Immature Granulocyte % (Auto) 0.2 % Immature Granulocyte # (Auto) 0.01 K/uL Sodium Level 143 mmol/L Potassium Level 3.9 mmol/L Chloride Level 106 mmol/L Carbon Dioxide Level 30 mmol/L Anion Gap 7.0 mmol/L Blood Urea Nitrogen 25 mg/dl Creatinine 0.89 mg/dl Est Creatinine Clear Calc Drug Dose 77.1 ml/min Estimated GFR () 92.9 Estimated GFR (Non- 80.2 BUN/Creatinine Ratio 27.7 Random Glucose 115 mg/dl Calcium Level 8.2 mg/dl Magnesium Level 2.2 mg/dl (Mallory Main ., PA-C) Diagnostic Results Outpatient echocardiogram 03/11/17: The left atrium is mildly dilated. The left ventricle is normal in size. There is mild concentric left ventricular hypertrophy. Ejection fraction 50-55%. There is mild aortic valve thickening. There is trace to mild aortic regurgitation. There is mild mitral regurgitation. Trace tricuspid regurgitation. The right atrium is mildly dilated. (Mallory Main ., PA-C) Assessment and Plan 81-year-old male with a history of diabetes mellitus, hyperlipidemia, COPD, and insomnia who presented to the ED with chest pain and fatigue. [facility] and was found to have tachycardia at rest. He was started on Cardizem at that time. He was also put on 24-hour Holter monitor which revealed 5 second pauses, at which time his Cardizem was stopped. The patient was found to be in A. fib with RVR upon arrival to the ED. The patient denies any previous history of A. fib, but notes that he's been more fatigued in the last month. Tachybradycardia syndrome -Admit to telemetry for cardiac monitoring. Patient has remained in A. fib with heart rate in 90s-140s overnight, 120s-130s this morning. -Hold Cardizem -Consult cardiology, appreciate recs: Plan for pacemaker tomorrow -Echo 03/11/17: Left atrium mildly dilated. Left ventricle normal in size. Mild concentric LVH. EF 50-55%. Mild aortic valve thickening. Trace to mild AR. Mild MR. Trace TR. Right atrium mildly dilated -Cardiac enzymes negative 3 -Continue aspirin 325 mg PO qd Afib with RVR--ongoing, pt with worsening symptoms -Telemetry findings as above -Appreciate cardiology recs -Unknown how long patient has been in this rhythm -Increase metoprolol to 25 mg PO BID Diabetes mellitus type 2--no HgbA1c on record -Hold pioglitazone -Insulin sliding scale -Check BSGs q ac and qhs -HgbA1c 7.0 on 03/13 HLD -Continue simvastatin 40 mg PO qd COPD--stable -Hold Ventolin for now due to tachycardia Insomnia- -Continue temazepam 30 mg PO qhs DVT prophylaxis -Enoxaparin 40 mg SC q24h -SCDs Code Status -Level I, FULL RESUSCITATION STATUS This chart was completed in part utilizing [employer] Voice Recognition software. Attempts were made to minimize the grammatical errors, random word insertions, pronoun errors and incomplete sentences. Any formal questions or concerns about the content, text or information contained within the body of this dictation should be directly addressed to the provider for clarification. (Mallory Main ., PA-C) I agree with PA assessment and plan and have seen and examined pt myself Pt resting in chair No chest pain or sob however states having fluttering sensation earlier Remains in afib with tachycardia still noted Labs reviewed Increase in metoprolol Cont lovenox Will need chronic AC, good candidate for NOAC, hold off until decision on pacemaker No further incidents overnight (Joselito Lujan D.Arnold.)
[2017-03-14] MEDS: METOPROLOL TARTRATE 25 MG TAB PO SCH ×2 (10:41→21:00)
--- NOTE | 2017-03-14 10:41 | Cardiology Follow-Up ---
Subjective General Date of Service: March 14, 2017. Pt evaluation today including: conversation w/ patient, chart review, lab review, review of studies, conversation w/ senior solutions consultant History of Present Illness The patient is a 81 year old male Allergies Coded Allergies: Naproxen (Verified Allergy, Unknown, GI UPSET, 11/12/14) Zolpidem (Verified Adverse Reaction, Unknown, "WEIRD DREAMS", 11/12/14) Social History Smoking Status: Former Smoker Hx Tobacco Use In Past Year?: No Hx Alcohol Use - Type And Amou: Yes (1 glass of wine/day) Problem List Medical Problems: (1) Atrial fibrillation Status: Acute (2) Sinus pause Status: Acute Review of Systems Respiratory: No dyspnea at rest, No shortness of breath Cardiac: + palpitations, + problem reported (Fatigue, rest ROS negative), No chest pain Physical Exam Vital Signs Last Vital Signs Documentation Date Time Temp Pulse Resp B/P Pulse Ox O2 Delivery O2 Flow Rate FiO2 03/14/17 08:00 Room Air 03/14/17 07:22 36.6 119 18 113/73 96 Physical Exam Constitutional: General Apperance: heathly-appearing Level of Distress: NAD Ambulation: ambulating normally Psychiatric: Mental Status: active & alert Orientation: to time, to place, to person Lungs: Respiratory effort: no dyspnea Auscultation: breath sounds normal, CTA except as noted, no wheezing, no rales/crackles, no rhonchi Cardiovascular: Heart Auscultation: no murmurs, no rubs, tachycardia, irregular rate rhythm Abdomen: Bowel Sounds: normal Inspection & Palpation: soft, non-distended, no tenderness, guarding & rebound Extremities: no edema Assessment and Plan Assessment and Plan IMPRESSIONS: 1. Atrial fibrillation with a rapid ventricular response. 2. Documented 4-second pause here, although he notes he did not sleep very much last night and believes he was awake at 6:00 a.m. 3. History of a 5 second pause on the Holter from the [facility]. 4. CHADS2-VASc score of 3, that being his age and diabetes. D/d Dr Payne (EP service) by phone Plan Pacemaker Tomorrow; ?? A lead and V lead just in case he is still symptomatic with rate control to allow for CV Discussed risks and benefits in detail with patient and family No NOAC for three days post procedure Increase BB post procedure to control HR Will arrange follow up in [facility] pacer clinic upon D/c Laboratory Results Last 24 Hours Test 03/13/17 11:01 03/13/17 16:42 03/13/17 17:31 03/13/17 20:30 Bedside Glucose 96 mg/dl 147 mg/dl 95 mg/dl Total Creatine Kinase 64 U/L Creatine Kinase MB 1.8 ng/ml Creatine Kinase MB Ratio 2.8 Troponin I < 0.015 ng/ml Test 03/14/17 05:00 03/14/17 06:54 White Blood Count 5.41 K/uL Red Blood Count 4.23 M/uL Hemoglobin 13.1 g/dL Hematocrit 39.3 % Mean Corpuscular Volume 92.9 fL Mean Corpuscular Hemoglobin 31.0 pg Mean Corpuscular Hemoglobin Concent 33.3 g/dl Platelet Count 183 K/uL Mean Platelet Volume 11.0 fL Neutrophils (%) (Auto) 55.3 % Lymphocytes (%) (Auto) 27.7 % Monocytes (%) (Auto) 10.5 % Eosinophils (%) (Auto) 5.7 % Basophils (%) (Auto) 0.6 % Neutrophils # (Auto) 2.99 K/uL Lymphocytes # (Auto) 1.50 K/uL Monocytes # (Auto) 0.57 K/uL Eosinophils # (Auto) 0.31 K/uL Basophils # (Auto) 0.03 K/uL RDW Standard Deviation 48.3 fL RDW Coefficient of Variation 14.2 % Immature Granulocyte % (Auto) 0.2 % Immature Granulocyte # (Auto) 0.01 K/uL Sodium Level 143 mmol/L Potassium Level 3.9 mmol/L Chloride Level 106 mmol/L Carbon Dioxide Level 30 mmol/L Anion Gap 7.0 mmol/L Blood Urea Nitrogen 25 mg/dl Creatinine 0.89 mg/dl Est Creatinine Clear Calc Drug Dose 77.1 ml/min Estimated GFR () 92.9 Estimated GFR (Non- 80.2 BUN/Creatinine Ratio 27.7 Random Glucose 115 mg/dl Calcium Level 8.2 mg/dl Magnesium Level 2.2 mg/dl Bedside Glucose 115 mg/dl
[2017-03-14] MEDS: ENOXAPARIN 40 MG/0.4 ML SYR SQ SCH (14:00)
[2017-03-14] MEDS: SIMVASTATIN 40 MG TAB PO SCH (21:00)
[2017-03-14] MEDS: TEMAZEPAM 15 MG CAP PO SCH (21:00)
[2017-03-15] VITALS (10 sets, daily range): BP systolic 96–130; BP diastolic 59–89; PULSE 72–118; TEMP 36.3–36.9; O2SAT 94–97
[2017-03-15] MEDS: INSULIN ASPART 100 UNITS/ML 3 ML PEN SC SCH ×4 (07:00→20:52)
[2017-03-15] MEDS ORDERED: LACTATED RINGER'S 1000ML 1,000 ML IV ONE (07:06)
[2017-03-15 07:09] LABS: BASO % 0.9 %; BASO ABS # 0.05 K/uL (0-0.2); COMPLETE YES; EOS % 5.7 %; HEMATOCRIT 39.6 % (42-52); LYMPH % 30.6 %; LYMPH ABS # 1.78 K/uL (1.2-3.4); MEAN CELL VOLUME 94.3 fL (80-100); MEAN CORPUSCULAR HEMOGLOBIN 30.7 pg (25-34); MEAN CORPUSCULAR HGB CONC 32.6 g/dl (32-36); NEUT % 51.8 %; PLATELET COUNT 175 K/uL (130-400); WHITE BLOOD COUNT 5.82 K/uL (4.8-10.8)
[2017-03-15] MEDS ORDERED: BACITRACIN 50000 UNIT VIAL ONE (07:15)
[2017-03-15] MEDS ORDERED: BUPIVACAINE 0.5 % 5 MG/1 ML MPF 30ML VIAL ONE (07:15)
[2017-03-15] MEDS ORDERED: LIDOCAINE HCL 1% 20 ML VIAL ONE (07:15)
[2017-03-15] MEDS ORDERED: KEFZOL SPECIAL PROCEDURE STOCK 1 GM ADDVIAL IV ONE (07:44)
[2017-03-15 07:45] LABS: BUN/CREATININE RATIO 34.4 (10-20); CALCIUM 8.3 mg/dl (8.5-10.1); CREATININE 0.9 mg/dl (0.60-1.40); MAGNESIUM 2.2 mg/dl (1.8-2.4); POTASSIUM 4.1 mmol/L (3.5-5.1)
[2017-03-15] MEDS ORDERED: MIDAZOLAM HCL 5 MG/ML 1 ML VIAL ONE (07:53)
[2017-03-15] MEDS ORDERED: FENTANYL CITRATE INJ 50 MCG/1 ML 2 ML VIAL ONE (07:53)
[2017-03-15] MEDS ORDERED: OXYCODONE HCL IR 5 MG TAB (IMMEDIATE RELEASE) PO PRN (08:45)
[2017-03-15] MEDS ORDERED: ACETAMINOPHEN 325 MG TAB PO PRN (08:45)
[2017-03-15] MEDS ORDERED: CEFAZOLIN 1000MG/55 ML D5W IV SCH (09:00)
[2017-03-15] MEDS: METOPROLOL TARTRATE 25 MG TAB PO SCH (09:14)
[2017-03-15] MEDS: ASPIRIN 325 MG ECTAB PO SCH (09:14)
[2017-03-15] MEDS: CYANOCOBALAMIN 500 MCG TAB (VIT B-12) PO SCH (09:15)
--- NOTE | 2017-03-15 10:16 | Hospitalist Progress Note ---
Hospitalist Progress Note Date of Service March 15, 2017. Subjective Pt evaluation today including: conversation w/ patient, physical exam, chart review, lab review, review of inpatient medication list Pain: 2/10 soreness at area of pacemake insertion PO Intake: Tolerating PO diet Voiding: no voiding problems Patient reports feeling well after his pacemaker insertion this morning. He complains of some mild 2/10 soreness in his left chest at the incision site but otherwise denies chest pain. He states the soreness is exacerbated by certain movements of his chest/left arm. He is on bedrest. The patient denies fevers, chills, sweats, fatigue, palpitations, claudication, cough, wheezing, shortness of breath, nausea, vomiting, abdominal pain, dysuria, hematuria, urinary retention, paralysis, weakness, numbness and tingling. Additional Comments: See HPI for pertinent positives and negatives. All other systems reviewed and negative. Objective Vital Signs Date Time Temp Pulse Resp B/P Pulse Ox O2 Delivery O2 Flow Rate FiO2 03/15/17 09:21 105 20 126/78 94 Room Air 03/15/17 09:00 109 20 129/74 95 Room Air 03/15/17 08:55 62 16 116/78 96 Room Air 03/15/17 08:40 60 16 102/91 96 Room Air 03/15/17 08:00 Room Air 03/15/17 07:52 36.3 118 20 128/89 95 Room Air 03/15/17 04:10 36.4 109 18 96/59 95 Room Air 03/15/17 04:00 Room Air 03/15/17 00:02 Room Air 03/14/17 23:53 36.8 97 18 114/63 95 Room Air 03/14/17 20:00 Room Air 03/14/17 19:18 37.3 95 18 114/66 95 Room Air 03/14/17 16:00 Room Air 03/14/17 15:20 36.5 105 18 112/77 94 Room Air 03/14/17 12:00 Room Air 03/14/17 11:02 36.9 138 18 131/81 94 Room Air 03/14/17 10:41 139 117/80 Physical Exam Notes: General appearance: Well-developed, well-nourished, no apparent distress Head: Normocephalic, atraumatic Eyes: Normal inspection, PERRL, EOMI ENT: Normal ENT inspection, hearing grossly normal, pharynx normal Neck: Supple, no JVD, trachea midline Respiratory/Chest: +Left chest TTP at area of incision. Area dressed, c/d/i. Lungs clear to auscultation, normal breath sounds, no respiratory distress Cardiovascular: +Irregularly irregular, tachycardic but improved from yesterday. No gallop, no murmur Abdomen/GI: Normal bowel sounds, non-tender, soft Extremities/Musculoskeletal: Normal inspection, no calf tenderness, no pedal edema Neurological/Psych: Alert, normal mood/affect, oriented x 3 Skin: Normal color, warm/dry, no rash Laboratory Results Last 24 Hours Test 03/14/17 11:15 03/14/17 16:13 03/14/17 20:15 03/15/17 06:12 Bedside Glucose 127 mg/dl 147 mg/dl 151 mg/dl White Blood Count 5.82 K/uL Red Blood Count 4.20 M/uL Hemoglobin 12.9 g/dL Hematocrit 39.6 % Mean Corpuscular Volume 94.3 fL Mean Corpuscular Hemoglobin 30.7 pg Mean Corpuscular Hemoglobin Concent 32.6 g/dl Platelet Count 175 K/uL Mean Platelet Volume 11.0 fL Neutrophils (%) (Auto) 51.8 % Lymphocytes (%) (Auto) 30.6 % Monocytes (%) (Auto) 11.0 % Eosinophils (%) (Auto) 5.7 % Basophils (%) (Auto) 0.9 % Neutrophils # (Auto) 3.02 K/uL Lymphocytes # (Auto) 1.78 K/uL Monocytes # (Auto) 0.64 K/uL Eosinophils # (Auto) 0.33 K/uL Basophils # (Auto) 0.05 K/uL RDW Standard Deviation 49.1 fL RDW Coefficient of Variation 14.4 % Immature Granulocyte % (Auto) 0.0 % Immature Granulocyte # (Auto) 0.00 K/uL Sodium Level 142 mmol/L Potassium Level 4.1 mmol/L Chloride Level 108 mmol/L Carbon Dioxide Level 29 mmol/L Anion Gap 5.0 mmol/L Blood Urea Nitrogen 31 mg/dl Creatinine 0.90 mg/dl Est Creatinine Clear Calc Drug Dose 76.7 ml/min Estimated GFR () 92.5 Estimated GFR (Non- 79.8 BUN/Creatinine Ratio 34.4 Random Glucose 135 mg/dl Calcium Level 8.3 mg/dl Magnesium Level 2.2 mg/dl Test 03/15/17 06:38 Bedside Glucose 128 mg/dl Assessment and Plan 81-year-old male with a history of diabetes mellitus, hyperlipidemia, COPD, and insomnia who presented to the ED with chest pain and fatigue. [facility] and was found to have tachycardia at rest. He was started on Cardizem at that time. He was also put on 24-hour Holter monitor which revealed 5 second pauses, at which time his Cardizem was stopped. The patient was found to be in A. fib with RVR upon arrival to the ED. The patient denies any previous history of A. fib, but notes that he's been more fatigued in the last month. Tachybradycardia syndrome--s/p pacemaker placement 03/15 POD #0 -Admit to telemetry for cardiac monitoring. Patient has remained in A. fib. HR overnight ranged from 90s to 130s for the most part but did go as low as 65 briefly. HR back up to 130s this morning prior to procedure. Currently 100s- 130s. -Hold Cardizem -Consult cardiology, appreciate recs: Dr. Payne consulted for pacemaker placement. -Echo 03/11/17: Left atrium mildly dilated. Left ventricle normal in size. Mild concentric LVH. EF 50-55%. Mild aortic valve thickening. Trace to mild AR. Mild MR. Trace TR. Right atrium mildly dilated -Cardiac enzymes negative 3 -Continue aspirin 325 mg PO qd -Cefazolin 2 gm IV q8h per cardio Afib with RVR--ongoing -Telemetry findings as above -Appreciate cardiology recs -Unknown how long patient has been in this rhythm -Continue metoprolol to 25 mg PO BID for now pending cardiology recs Diabetes mellitus type 2--no HgbA1c on record -Hold pioglitazone -Insulin sliding scale -Check BSGs q ac and qhs -HgbA1c 7.0 on 03/13 HLD -Continue simvastatin 40 mg PO qd COPD--stable -Hold Ventolin for now due to tachycardia Insomnia- -Continue temazepam 30 mg PO qhs DVT prophylaxis -Resume chemical prophylaxis when okay with cardiology -SCDs Code Status -Level I, FULL RESUSCITATION STATUS This chart was completed in part utilizing [employer] Speech Voice Recognition software. Attempts were made to minimize the grammatical errors, random word insertions, pronoun errors and incomplete sentences. Any formal questions or concerns about the content, text or information contained within the body of this dictation should be directly addressed to the provider for clarification.
[2017-03-15] MEDS ORDERED: METOPROLOL TARTRATE 25 MG TAB PO ONE (12:15)
--- NOTE | 2017-03-15 12:35 | OPERATIVE REPORT ---
DATE OF OPERATION: 03/15/2017 PROCEDURE PERFORMED: Implantation of dual chamber permanent pacemaker. STAFF PACKING TRACTOR MACHINE OPERATOR: Dr. Daniel Payne. INDICATION: Mr. Kp Cornejo is an 81-year-old gentleman who was recently admitted to [facility] with tachybrady syndrome. He was noted to have atrial fibrillation with rapid ventricular rates and also 5-second pauses on inadequate rate control therapy. As such, he was felt to be a good candidate for permanent pacing due to symptomatic nonreversible AV node dysfunction. A dual chamber device was selected as the patient is likely to be cardioverted in the future and we wish to maintain sinus rhythm with bradycardia support. PROCEDURE IN DETAIL: The patient was informed of the risks, benefits and alternatives to the intended procedure, he understood such and wished to proceed. He was taken to the electrophysiology suite in a fasting state, a preoperative antibiotic had been administered. The patient was monitored electrocardiographically throughout the procedure and conscious sedation was administered per protocol. The left deltopectoral area was prepped and draped in usual sterile fashion. This area was anesthetized using subcutaneous administration of Xylocaine and Marcaine solution. An incision was made at the site and carried down the prepectoralis fascia using sharp dissection. Electrocautery was also employed for dissection as well as for hemostasis. A device pocket was fashioned in the tissues above the pectoral muscle. Subsequent to this maneuver, left axillary vein was accessed twice using modified Seldinger technique. Sheaths were placed over guidewires at this site and used to facilitate passage of the pacing leads through their respective chambers under fluoroscopic guidance. This included right atrial and right ventricular leads. Adequate sensing and threshold parameters were obtained prior to active fixation of these leads to the endocardial surface. A proximal portion of the lead was then sutured to the prepectoralis fascia using nonabsorbable suture. Device pocket irrigated in antibiotic solution and the leads were then attached to the device. Device and leads were then placed in the pocket and the pocket was closed in 3 layers with absorbable sutures. Steri-Strips and sterile dressing were applied. The device was tested noninvasively prior to conclusion of the procedure. The patient tolerated the procedure well, there were no immediate complications. EQUIPMENT USED: New pulse generator opener Semmle, model number A2DR01, serial number [id number]. Right atrial lead opener Semmle, model #5076, serial number [id number]. Right ventricular lead opener Medtronic, model #5076, serial number [id number]. MEASURED DATA: 1. Right atrial lead: The patient was in atrial flutter at the time of the procedure. Flutter waves measured 1.3 millivolts. Pacing threshold could not be obtained. The pacing impedance was 651 ohms. 2. Right ventricular lead: R-waves measured 5.8 millivolts, pacing threshold was 0.4 volts at 0.4 milliseconds with a pacing impedance of 782 ohms. IMPRESSION: 1. Successful implantation of dual chamber permanent pacemaker. 2. Atrial flutter. PLAN: The patient will be monitored in the gold overnight. An additional dose of antibiotics will be administered. Chest x-ray and re-interrogation of the device will be performed in the morning. Should all parameters be adequate and the patient be feeling well, he will be considered for discharge at that time. I attest to the content of the Intraoperative Record and any orders documented therein. Any exceptio ns are noted below.
[2017-03-15 13:39] LABS: URINE APPEARANCE CLOUDY (CLEAR); URINE BILIRUBIN NEG (NEG); URINE COLOR DK YELLOW; URINE EPITHELIAL CELL AUTO 0-5 /lpf (0-5); URINE NITRITE NEG (NEG); URINE SPECIFIC GRAVITY 1.028 (1.000-1.030); UROBILINOGEN NEG (NEG); ZZUR CULT IF INDIC CLEAN CATCH NO
[2017-03-15 13:43] LABS: MANUAL MICROSCOPIC REQUIRED? NO; REVIEW REQ? NO
[2017-03-15] MEDS: CEFAZOLIN IV 2,000 MG in DEXTROSE 5% 50ML 50 ML IV SCH (17:44)
[2017-03-15] MEDS: SIMVASTATIN 40 MG TAB PO SCH (20:52)
[2017-03-15] MEDS: METOPROLOL TARTRATE 50 MG TAB PO SCH (20:52)
[2017-03-15] MEDS: TEMAZEPAM 15 MG CAP PO SCH (20:59)
[2017-03-16] VITALS (10 sets, daily range): BP systolic 101–155; BP diastolic 60–89; PULSE 70–104; TEMP 36.5–37.1; O2SAT 94–99
[2017-03-16] MEDS: CEFAZOLIN IV 2,000 MG in DEXTROSE 5% 50ML 50 ML IV SCH ×2 (02:01→09:42)
--- NOTE | 2017-03-16 02:26 | CARDIOLOGY CONSULTATION ---
DATE OF CONSULTATION: 03/15/2017 ELECTROPHYSIOLOGY CONSULT REFERRING PHYSICIAN: Costa Collins DO. CHIEF COMPLAINT: Tachybrady syndrome. HISTORY OF PRESENT ILLNESS: Mr. Kp Cornejo is an 81-year-old gentleman without a known history of atrial arrhythmia, who [facility] other [facility]. At that visit, he was noted to have an element of tachycardia and later discovered to have a very regular SVT consistent with atrial flutter. The patient underwent Holter monitoring and was noted to have episodes of pauses possibly during sleeping hours, up to 4 seconds in duration. Based on concerns over his heart rate and difficulty with rate control in the setting of 4-second pauses, he was admitted to [facility] for additional treatment. Generally speaking, the patient claims to be feeling well, recently has been feeling somewhat more tired, perhaps had an element of exercise intolerance. He is not aware of any palpitations or racing heartbeat. He denies significant dizziness or lightheadedness. He has not suffered any syncopal episodes. Generally speaking, he has not had significant breathing trouble. He has no orthopnea or paroxysmal nocturnal dyspnea. He did not report any episodes of chest discomfort. PAST MEDICAL HISTORY: Significant for: 1. Colon cancer. 2. Diabetes mellitus. 3. Cataracts. 4. Intracranial meningioma. 5. Erectile dysfunction. 6. Inguinal hernias. 7. Tremor. 8. Trigger finger. 9. Hypertension. 10. Hyperlipidemia. 11. BPH. 12. Hemorrhoids. PAST SURGICAL HISTORY: Includes inguinal hernia repair and cataract surgery as well as colon resection. OUTPATIENT MEDICATIONS: Included pioglitazone, simvastatin and temazepam. ALLERGIES: INCLUDED ETODOLAC AND TERAZOSIN WELL ADVERSE REACTIONS TO AMBIEN, GLIPIZIDE AND METFORMIN. FAMILY HISTORY: Noncontributory. No premature coronary disease. SOCIAL HISTORY: The patient is currently retired and lives locally. He has a remote history of tobacco abuse and denies significant alcohol use currently. REVIEW OF SYSTEMS: Complete 10-system review of systems was performed and the pertinent positives are noted in the history of present illness, the remainder being negative. PHYSICAL EXAMINATION: GENERAL: The patient did not appear to be in any acute distress. He is a pleasant individual who is alert and oriented. His mood and affect appear normal. He answered all questions appropriately. CURRENT VITAL SIGNS: Include blood pressure 126/78 with pulse of 105. HEENT: Sclerae are anicteric. Extraocular movements appear to be intact. Palpation of submandibular region did not reveal any significant lymphadenopathy. The carotids are palpable bilaterally. I did not appreciate any bruits on auscultation. There is no evidence of thyromegaly. LUNGS: Auscultation of his lungs reveals occasional crackles at the bases that cleared with inspiration. There are no rales or rhonchi otherwise. There is no expiratory wheezing. He has normal respiratory effort without use of accessory muscles. CARDIAC: Reveals him to be in an irregularly irregular rhythm, but no murmurs are appreciated. EXTREMITIES: Evaluation of both arms reveals him to have radial pulses that are equal in intensity. There is no evidence of cyanosis or clubbing. Evaluation of the lower extremities did not reveal any significant peripheral edema. I did not appreciate any rashes on examination today. LABORATORY STUDIES: Obtained this morning included a white cell count of 5.8, hemoglobin of 12.9 and a platelet count of 175. Sodium is 142, potassium is 4.1, BUN is 31 and creatinine is 0.9. Review of the patient's records from the [facility] reveals an echocardiogram consistent with an SVT or possibly an atrial flutter. An echocardiogram revealed preserved left ventricular systolic function with mild left atrial dilatation. There was mild aortic regurgitation and mild mitral regurgitation. I reviewed the patient's EKGs obtained at [facility] which do reveal episodes of atrial flutter and possibly atrial fibrillation. ASSESSMENT AND PLAN: 1. Tachybrady syndrome. The patient has had high ventricular rates associated with occasional pauses up to 5 seconds in duration. This is despite very low doses of rate control medications. It is obvious that in this setting, he is not going to have adequate control of the arrhythmia without more aggressive treatment which would likely precipitate additional pauses. At this point, it would seem reasonable to implant a pacemaker for tachybrady syndrome. I did explain the risks, benefits, and alternatives to the patient in the presence of his family, he is willing to proceed. We will choose a dual chamber device and it is very likely that the patient will undergo cardioversion at some point and may have associated low intrinsic heart rate in that setting. 2. Atrial flutter. It appears that the most common rhythm documented in the patient's record is likely an atrial flutter, possibly atypical. Catheter-based therapy could be chosen for initial treatment. It is unclear whether he has some associated atrial fibrillation. In that setting, rate control may be more beneficial as described above. The patient will be anticoagulated indefinitely as a result of the associated stroke risk. We will likely initiate anticoagulation once the pacemaker is in place and the risk of bleeding is low. 3. Valvular heart disease. The patient has mild aortic and mitral insufficiency. No symptoms currently. This can be followed longitudinally.
[2017-03-16] MEDS ORDERED: CEFAZOLIN SOD 1000MG/55 ML D5W IV SCH (06:00)
[2017-03-16 06:40] LABS: HEMATOCRIT 41.4 % (42-52); MEAN CELL VOLUME 93.2 fL (80-100); MEAN CORPUSCULAR HEMOGLOBIN 31.1 pg (25-34); MEAN CORPUSCULAR HGB CONC 33.3 g/dl (32-36); MEAN PLATELET VOLUME 10.7 fL (7.4-10.4); PLATELET COUNT 171 K/uL (130-400); RED BLOOD COUNT 4.44 M/uL (4.7-6.1); WHITE BLOOD COUNT 8.36 K/uL (4.8-10.8)
[2017-03-16 07:06] LABS: BUN/CREATININE RATIO 28.6 (10-20); CALCIUM 8.6 mg/dl (8.5-10.1); CREATININE 0.91 mg/dl (0.60-1.40); MAGNESIUM 2.1 mg/dl (1.8-2.4); POTASSIUM 4.1 mmol/L (3.5-5.1)
--- NOTE | 2017-03-16 07:19 | DIAGNOSTIC IMAGING REPORT ---
CHEST 2 VIEWS ROUTINE CLINICAL HISTORY: Pacemaker placement. COMPARISON STUDY: Chest radiograph March 12, 2017. FINDINGS: There has been interval placement of a dual lead left subclavian pacemaker. Lead tips project over the right atrial appendage and right ventricle. There is no pneumothorax or evidence of pulmonary edema. No consolidation is identified. Mild cardiomegaly is unchanged. A right shoulder arthroplasty is incidentally noted. IMPRESSION: No pneumothorax status post placement of a dual lead left subclavian pacemaker. Electronically signed by: Howard Lucio M.D. 03/16/2017 7:18 AM Dictated Date/Time: 03/16/2017 7:15 AM
[2017-03-16] MEDS: INSULIN ASPART 100 UNITS/ML 3 ML PEN SC SCH ×4 (07:46→21:00)
[2017-03-16] MEDS: ASPIRIN 325 MG ECTAB PO SCH (08:36)
[2017-03-16] MEDS: CYANOCOBALAMIN 500 MCG TAB (VIT B-12) PO SCH (08:36)
[2017-03-16] MEDS: METOPROLOL TARTRATE 50 MG TAB PO SCH ×3 (08:36→21:26)
--- NOTE | 2017-03-16 08:45 | Cardiology Follow-Up ---
Subjective General Date of Service: March 16, 2017. Pt evaluation today including: conversation w/ patient, conversation w/ family , chart review, lab review, review of studies, conversation w/ client insights consultant History of Present Illness The patient is a 81 year old male Allergies Coded Allergies: Naproxen (Verified Allergy, Unknown, GI UPSET, 11/12/14) Zolpidem (Verified Adverse Reaction, Unknown, "WEIRD DREAMS", 11/12/14) Social History Smoking Status: Former Smoker Hx Tobacco Use In Past Year?: No Hx Alcohol Use - Type And Amou: Yes (1 glass of wine/day) Problem List Medical Problems: (1) Atrial fibrillation Status: Acute (2) Sinus pause Status: Acute Review of Systems Respiratory: No cough, No dyspnea at rest, No hemoptysis, No shortness of breath Cardiac: No chest pain, No edema, No palpitations Additional ROS Details: mild discomfort over the pacer incision Physical Exam Vital Signs Last Vital Signs Documentation Date Time Temp Pulse Resp B/P Pulse Ox O2 Delivery O2 Flow Rate FiO2 03/16/17 07:59 36.8 86 18 128/89 96 03/16/17 04:00 Room Air Physical Exam Constitutional: General Apperance: heathly-appearing Level of Distress: NAD Ambulation: ambulating normally Psychiatric: Mental Status: active & alert Orientation: to time, to place, to person Lungs: Respiratory effort: no dyspnea Auscultation: breath sounds normal, CTA except as noted, no wheezing, no rales/crackles, no rhonchi Cardiovascular: Heart Auscultation: no murmurs, no rubs, tachycardia, irregular rate rhythm Abdomen: Bowel Sounds: normal Inspection & Palpation: soft, non-distended, no tenderness, guarding & rebound Extremities: no edema Additional Comments: Skin incision dry and intact, no drainage Assessment and Plan Assessment and Plan IMPRESSIONS: 1. Atrial Flutter with a rapid ventricular response. 2. Documented 4 and 5 second pauses 3. History of a 5 second pause on the Holter from the [facility]. 4. CHADS2-VASc score of 3, that being his age and diabetes 5. POD #1 DDDR Medtronic Pacemaker. keep one more day Rates had been well controlled until this morning (delay in BB ??) Increase BB to 50mg TID for better rate control Normal device function and CXR without Pneumothorax No NOAC until Wednesday; [facility] (Ap[facility] 5[facility] BID) If rate still hard to control or still SOB then will plan possible overdrive pace and/or cardioversion as outpt Will arrange follow up in [facility] pacer clinic upon D/c D/w Dr Payne Laboratory Results Last 24 Hours Test 03/15/17 10:42 03/15/17 12:40 03/15/17 16:12 03/15/17 20:16 Bedside Glucose 170 mg/dl 137 mg/dl 81 mg/dl Urine Color DK YELLOW Urine Appearance CLOUDY Urine pH 5.0 Urine Specific [place] 1.028 Urine Protein 1+ Urine Glucose (UA) NEG Urine Ketones NEG Urine Occult Blood 3+ Urine Nitrite NEG Urine Bilirubin NEG Urine Urobilinogen NEG Urine Leukocyte Esterase NEG Urine WBC (Auto) 1-5 /hpf Urine RBC (Auto) 10-30 /hpf Urine Hyaline Casts (Auto) 0 /lpf Urine Epithelial Cells (Auto) 0-5 /lpf Urine Bacteria (Auto) NEG Test 03/16/17 06:25 03/16/17 06:48 White Blood Count 8.36 K/uL Red Blood Count 4.44 M/uL Hemoglobin 13.8 g/dL Hematocrit 41.4 % Mean Corpuscular Volume 93.2 fL Mean Corpuscular Hemoglobin 31.1 pg Mean Corpuscular Hemoglobin Concent 33.3 g/dl RDW Standard Deviation 48.7 fL RDW Coefficient of Variation 14.1 % Platelet Count 171 K/uL Mean Platelet Volume 10.7 fL Sodium Level 140 mmol/L Potassium Level 4.1 mmol/L Chloride Level 105 mmol/L Carbon Dioxide Level 30 mmol/L Anion Gap 5.0 mmol/L Blood Urea Nitrogen 26 mg/dl Creatinine 0.91 mg/dl Est Creatinine Clear Calc Drug Dose 75.9 ml/min Estimated GFR () 91.3 Estimated GFR (Non- 78.8 BUN/Creatinine Ratio 28.6 Random Glucose 129 mg/dl Calcium Level 8.6 mg/dl Magnesium Level 2.1 mg/dl Bedside Glucose 124 mg/dl
--- NOTE | 2017-03-16 13:59 | Progress Note ---
Subjective Date of Service: March 16, 2017. Subjective Pt evaluation today including: conversation w/ patient, physical exam, chart review, lab review, review of inpatient medication list Problem List Medical Problems: (1) Atrial fibrillation Status: Acute (2) Sinus pause Status: Acute Review of Systems Constitutional: No chills, No fatigue, No fever, No problem reported, No see HPI, No sweats, No weakness, No weight loss Eyes: No diplopia, No discharge, No eye pain, No problem reported, No redness, No see HPI, No worsening of vision ENT: No dental problems, No hearing loss, No nasal symptoms, No problem reported, No see HPI, No sore throat, No tinnitus, No trouble swallowing, No unusual epistaxis Respiratory: No cough, No dyspnea at rest, No dyspnea on exertion, No hemoptysis, No problem reported, No see HPI, No shortness of breath, No sputum, No wheezing Cardiac: No PND, No chest pain, No claudication, No edema, No orthopnea, No palpitations, No problem reported, No see HPI Abdomen: No GI bleeding, No constipation, No diarrhea, No nausea, No pain, No problem reported, No see HPI, No vomiting Musculoskeletal: No calf pain, No joint pain, No muscle pain, No problem reported, No see HPI, No swelling Male : No dysuria, No hematuria, No incontinence, No nocturia more than once/ night, No problem reported, No see HPI, No sexual dysfunction, No slowing stream , No urinary frequency Psychiatric: No anhedonism, No anxiety, No depression symptoms, No insomnia, No problem reported, No see HPI, No substance abuse Heme: No abnormal bleeding/bruising, No clotting problems, No night sweats, No problem reported, No see HPI, No swollen lymph nodes Endo: No excessive thirst, No excessive urination, No fatigue, No problem reported, No see HPI Skin: No bleeding, No color change, No itch, No new/changing skin lesions, No problem reported, No rash, No see HPI Medications Current Inpatient Medications Medications (Trade) Dose Ordered Sig/Denisa Route Start Time Stop Time Status Last Admin Dose Admin Acetaminophen (Tylenol Tab) 650 mg Q4H PRN PO 03/13/17 01:30 04/12/17 01:29 03/15/17 15:30 650 MG Nitroglycerin (Nitrostat Tab) 0.4 mg UD PRN SL 03/13/17 01:30 04/12/17 01:29 Ondansetron HCl (Zofran Inj) 4 mg Q6H PRN IV 03/13/17 01:30 04/12/17 01:29 Insulin Aspart (novoLOG ASPART) SLIDING SCALE If C... ACHS SC 03/13/17 07:00 04/12/17 06:59 03/16/17 07:46 5 UNITS Glucose (Glucose 40% Gel) UD PRN PO 03/13/17 01:30 04/12/17 01:29 Glucose (Glucose Chew Tab) 1 tabs UD PRN PO 03/13/17 01:30 04/12/17 01:29 Dextrose (Dextrose 50% 50ML Syringe) 50 ml UD PRN IV 03/13/17 01:30 04/12/17 01:29 Glucagon (Glucagon Inj) 1 mg UD PRN SQ 03/13/17 01:30 04/12/17 01:29 Aspirin (Ecotrin Tab) 325 mg DAILY PO 03/13/17 09:00 04/12/17 08:59 03/16/17 08:36 325 MG Cyanocobalamin (Vitamin B-12 Tab) 2,000 mcg DAILY PO 03/13/17 09:00 04/12/17 08:59 03/16/17 08:36 2,000 MCG Simvastatin (Zocor Tab) 40 mg QPM PO 03/13/17 21:00 04/12/17 20:59 03/15/17 20:52 40 MG Temazepam (Restoril Cap) 30 mg HS PO 03/13/17 21:00 04/12/17 20:59 03/15/17 20:59 30 MG Enoxaparin Sodium 40 mg 40 mg DAILY@1400 SQ 03/13/17 14:00 04/12/17 13:59 Future Hold 03/13/17 14:19 40 MG Cefazolin Sodium/ Dextrose (Ancef Iv/D5 50ml) 60 ml @ 100 mls/hr Q8H IV 03/15/17 18:00 03/16/17 17:59 03/16/17 09:42 100 MLS/HR Oxycodone HCl (Roxicodone Immediate Rel Tab) 5 mg Q6 PRN PO 03/15/17 08:45 03/29/17 08:44 Metoprolol Tartrate (Lopressor Tab) 50 mg TID PO 03/16/17 14:00 04/15/17 13:59 Objective Vital Signs Date Time Temp Pulse Resp B/P Pulse Ox O2 Delivery O2 Flow Rate FiO2 03/16/17 12:02 36.9 76 16 132/69 99 03/16/17 08:00 96 Room Air 03/16/17 07:59 36.8 86 18 128/89 96 03/16/17 04:00 Room Air 03/16/17 03:51 36.7 87 19 109/69 96 Room Air 03/15/17 23:59 Room Air 03/15/17 23:56 36.8 72 19 112/76 97 Room Air 03/15/17 20:00 Room Air 03/15/17 19:57 36.9 96 18 130/77 95 Room Air 03/15/17 16:00 96 Room Air 03/15/17 15:17 36.9 90 18 125/83 96 Room Air Physical Exam General Appearance: WD/WN, no apparent distress Eyes: normal inspection, EOMI ENT: normal ENT inspection, hearing grossly normal Neck: supple Respiratory/Chest: chest non-tender, lungs clear, normal breath sounds, no respiratory distress Cardiovascular: regular rate, rhythm, no edema, no gallop, no JVD, no murmur Abdomen: normal bowel sounds, non tender, soft, no organomegaly Extremities: normal range of motion, non-tender, normal inspection, no pedal edema Neurologic/Psychiatric: senior functional analyst II-XII nml as tested, no motor/sensory deficits, alert, normal mood/affect, oriented x 3 Skin: normal color, warm/dry, no rash Laboratory Results Last 24 Hours Test 03/15/17 16:12 03/15/17 20:16 03/16/17 06:25 03/16/17 06:48 Bedside Glucose 137 mg/dl 81 mg/dl 124 mg/dl White Blood Count 8.36 K/uL Red Blood Count 4.44 M/uL Hemoglobin 13.8 g/dL Hematocrit 41.4 % Mean Corpuscular Volume 93.2 fL Mean Corpuscular Hemoglobin 31.1 pg Mean Corpuscular Hemoglobin Concent 33.3 g/dl RDW Standard Deviation 48.7 fL RDW Coefficient of Variation 14.1 % Platelet Count 171 K/uL Mean Platelet Volume 10.7 fL Sodium Level 140 mmol/L Potassium Level 4.1 mmol/L Chloride Level 105 mmol/L Carbon Dioxide Level 30 mmol/L Anion Gap 5.0 mmol/L Blood Urea Nitrogen 26 mg/dl Creatinine 0.91 mg/dl Est Creatinine Clear Calc Drug Dose 75.9 ml/min Estimated GFR () 91.3 Estimated GFR (Non- 78.8 BUN/Creatinine Ratio 28.6 Random Glucose 129 mg/dl Calcium Level 8.6 mg/dl Magnesium Level 2.1 mg/dl Test 03/16/17 11:18 Bedside Glucose 87 mg/dl Assessment and Plan 81-year-old male with a history of diabetes mellitus, hyperlipidemia, COPD, and insomnia who presented to the ED with chest pain and fatigue. [facility] and was found to have tachycardia at rest. He was started on Cardizem at that time. He was also put on 24-hour Holter monitor which revealed 5 second pauses, at which time his Cardizem was stopped. The patient was found to be in A. fib with RVR upon arrival to the ED. The patient denies any previous history of A. fib, but notes that he's been more fatigued in the last month. Tachybradycardia syndrome--s/p pacemaker placement 03/15 POD #1 -Echo 03/11/17: Left atrium mildly dilated. Left ventricle normal in size. Mild concentric LVH. EF 50-55%. Mild aortic valve thickening. Trace to mild AR. Mild MR. Trace TR. Right atrium mildly dilated -Cardiac enzymes negative 3 -Continue aspirin 325 mg PO qd Aflutter with RVR (an episode today while walking around) -Appreciate cardiology recs, metoprolol increased to 50mg TID, discharge was postpone to tomorrow -start AC on Wednesday, Apixaban 5mg BID Diabetes mellitus type 2 HgbA1c on 03/14 is 7, can restart oral meds upon discharge -Hold pioglitazone -Insulin sliding scale while in patient HLD -Continue simvastatin 40 mg PO qd COPD--stable -Hold Ventolin for now due to tachycardia Insomnia- -Continue temazepam 30 mg PO qhs DVT prophylaxis -SCDs Code Status -Level I, FULL RESUSCITATION STATUS
[2017-03-16] MEDS: SIMVASTATIN 40 MG TAB PO SCH (21:25)
[2017-03-16] MEDS: TEMAZEPAM 15 MG CAP PO SCH (21:26)
--- NOTE | 2017-03-16 23:44 | CARDIOLOGY PROGRESS NOTE ---
DATE: 03/16/2017 SUBJECTIVE: This morning Mr. Cornejo claims to be feeling well. He has some mild tenderness at the implant site of his pacemaker performed yesterday. This has improved, however. He has been ambulatory around the room and is free of complaints. He denies any significant dyspnea with exertion, a sense of palpitations, or any chest pain. PHYSICAL EXAMINATION: GENERAL: He is alert and oriented. His mood and affect appear normal. He answered all questions appropriately. CURRENT VITAL SIGNS: Include blood pressure 124/80 with a pulse of 89. CHEST: Evaluation of the pacemaker implant site reveals a well-healed wound without drainage. There is no erythema or evidence of hematoma. It is only mildly tender to palpation. I performed a full device interrogation which revealed persistent atrial flutter. There was poor sensing of the RV lead in a bipolar configuration, but in unipolar this was adequate. Threshold could not be tested due to tachycardia. The patient's chest x-ray demonstrated stable lead position without evidence of pneumothorax. IMPRESSION: 1. Tachybrady syndrome. The patient underwent successful implantation of dual chamber permanent pacemaker yesterday without complication. 2. Atrial flutter. The patient continues to have high ventricular rates, especially with activity. His beta-brandy will be increased today and anticoagulation will be started in the next few days.
[2017-03-17 03:48] VITALS: BP 124/71; PULSE 80; TEMP 36.9; O2SAT 95
[2017-03-17 07:15] LABS: HEMATOCRIT 40.8 % (42-52); MEAN CELL VOLUME 92.9 fL (80-100); MEAN CORPUSCULAR HEMOGLOBIN 30.5 pg (25-34); MEAN CORPUSCULAR HGB CONC 32.8 g/dl (32-36); MEAN PLATELET VOLUME 10.7 fL (7.4-10.4); PLATELET COUNT 163 K/uL (130-400); RED BLOOD COUNT 4.39 M/uL (4.7-6.1); WHITE BLOOD COUNT 7.15 K/uL (4.8-10.8)
[2017-03-17] MEDS: INSULIN ASPART 100 UNITS/ML 3 ML PEN SC SCH (07:52)
[2017-03-17 07:53] LABS: BUN/CREATININE RATIO 31.4 (10-20); CALCIUM 8.7 mg/dl (8.5-10.1); CREATININE 0.78 mg/dl (0.60-1.40); MAGNESIUM 2.2 mg/dl (1.8-2.4); POTASSIUM 4.1 mmol/L (3.5-5.1)
[2017-03-17] MEDS: METOPROLOL TARTRATE 50 MG TAB PO SCH (07:53)
[2017-03-17] MEDS: CYANOCOBALAMIN 500 MCG TAB (VIT B-12) PO SCH (07:54)
[2017-03-17] MEDS: ASPIRIN 325 MG ECTAB PO SCH (07:54)
[2017-03-17 08:00] VITALS: O2SAT 96
[2017-03-17 08:33] VITALS: BP 107/67; PULSE 86; TEMP 36.8; O2SAT 99
--- NOTE | 2017-03-17 09:05 | Cardiology Follow-Up ---
Subjective General Date of Service: March 17, 2017. Pt evaluation today including: conversation w/ patient, chart review, lab review, review of studies, conversation w/ eyewear consultant History of Present Illness The patient is a 81 year old male Allergies Coded Allergies: Naproxen (Verified Allergy, Unknown, GI UPSET, 11/12/14) Zolpidem (Verified Adverse Reaction, Unknown, "WEIRD DREAMS", 11/12/14) Social History Smoking Status: Former Smoker Hx Tobacco Use In Past Year?: No Hx Alcohol Use - Type And Amou: Yes (1 glass of wine/day) Problem List Medical Problems: (1) Atrial fibrillation Status: Acute (2) Sinus pause Status: Acute Review of Systems Respiratory: No cough, No dyspnea at rest, No shortness of breath Cardiac: No chest pain, No edema, No palpitations Physical Exam Vital Signs Last Vital Signs Documentation Date Time Temp Pulse Resp B/P Pulse Ox O2 Delivery O2 Flow Rate FiO2 03/17/17 08:33 36.8 86 18 107/67 99 03/17/17 04:00 Room Air Physical Exam Constitutional: General Apperance: heathly-appearing Level of Distress: NAD Ambulation: ambulating normally Psychiatric: Mental Status: active & alert Orientation: to time, to place, to person Lungs: Respiratory effort: no dyspnea Auscultation: breath sounds normal, CTA except as noted, no wheezing, no rales/crackles, no rhonchi Cardiovascular: Heart Auscultation: no murmurs, no rubs, tachycardia, irregular rate rhythm Abdomen: Bowel Sounds: normal Inspection & Palpation: soft, non-distended, no tenderness, guarding & rebound Extremities: no edema Assessment and Plan Assessment and Plan IMPRESSIONS: 1. Atrial Flutter with a rapid ventricular response. 2. Documented 4 and 5 second pauses 3. History of a 5 second pause on the Holter from the [facility]. 4. CHADS2-VASc score of 3, that being his age and diabetes 5. POD #1 DDDR [employer] Pacemaker. Rates much better Increased BB to 50mg TID for better rate control Normal device function and CXR without Pneumothorax No NOAC until Wednesday; gave script to family to get from [place] (Apixaban 5mg BID) Ambulating w/o problems If rate still hard to control or still SOB then will plan possible overdrive pace and/or cardioversion as [place] [facility]25 at 2:30pm d/w primary service D/w Dr Payne Laboratory Results Last 24 Hours Test 03/16/17 11:18 03/16/17 16:15 03/16/17 20:13 03/17/17 07:03 Bedside Glucose 87 mg/dl 248 mg/dl 106 mg/dl 118 mg/dl Test 03/17/17 07:04 White Blood Count 7.15 K/uL Red Blood Count 4.39 M/uL Hemoglobin 13.4 g/dL Hematocrit 40.8 % Mean Corpuscular Volume 92.9 fL Mean Corpuscular Hemoglobin 30.5 pg Mean Corpuscular Hemoglobin Concent 32.8 g/dl RDW Standard Deviation 47.8 fL RDW Coefficient of Variation 14.1 % Platelet Count 163 K/uL Mean Platelet Volume 10.7 fL Sodium Level 141 mmol/L Potassium Level 4.1 mmol/L Chloride Level 106 mmol/L Carbon Dioxide Level 28 mmol/L Anion Gap 7.0 mmol/L Blood Urea Nitrogen 25 mg/dl Creatinine 0.78 mg/dl Est Creatinine Clear Calc Drug Dose 88.5 ml/min Estimated GFR () 98.1 Estimated GFR (Non- 84.7 BUN/Creatinine Ratio 31.4 Random Glucose 120 mg/dl Calcium Level 8.7 mg/dl Magnesium Level 2.2 mg/dl
[2017-03-17] MEDS ORDERED: METO50TA17 PO ×2 (09:07→09:55)
--- NOTE | 2017-03-17 09:08 | Discharge Instructions ---
Discharge Instructions Admission Admission Date: March 13, 2017 at 01:28 Admission Diagnosis: Tachy-Rolando Syndrome. Discharge Care Plan - Problem: Medical Problems: (1) Atrial fibrillation (2) Sinus pause Care Plan - Goal(s): Improve function Care Plan - Instructions: Recommended Home Diet: 1800 Perfecto Wt Reduction * Call 911 or immediately go to the Hospital Emergency Department nearest your location if you feel you have an emergent problem. Inpt VTE Proph given/why not?: Enoxaparin (Lovenox)SQ, SCD's Follow Up Follow-Up: Follow up with director digital strategy for a pacemaker check as scheduled Laboratory Results Test Results: Hemoglobin A1c Test 03/13/17 09:00 Range/Units Estimated Average Glucose 154 mg/dl Hemoglobin A1c 7.0 H 4.5-5.6 % Shabbir Mazariegos Recommendations: Call your doctor if: * Temperature above 101 degrees * Pain not relieved by pain medicine ordered * There is increased drainage or redness from any incision * You have any unanswered questions or concerns. Your Doctors Instructions noted above were prepared by provider Fantasma Butcher.
--- NOTE | 2017-03-17 09:19 | Discharge Summary ---
Discharge Summary Date of Service March 17, 2017. Discharge Summary Admission Date: March 13, 2017 at 01:28 Discharge Date: March 17, 2017 Discharge Disposition: Home Principal Diagnosis: A flutter with RVR Problems/Secondary Diagnoses: Tachybradycardia syndrome--s/p pacemaker placement 03/15 POD #1 Aflutter with RVR Diabetes mellitus type 2 Dyslipidemia COPD--stable Insomnia- Immunizations: Have You Had Influenza Vaccine: N/A History of Tetanus Vaccine?: Yes History of Pneumococcal: Yes Pneumococcal Date: Aug 14, 2008 History of Hepatitis B Vaccine: No Medication Reconciliation New Medications: Metoprolol Tartrate (Metoprolol Tartrate) 50 Mg Tab 50 MG PO TID for 30 Days, #90 TAB Continued Medications: Albuterol Hfa (Ventolin Hfa) 200 Puffs/53475 Mcg Aers 2 PUFFS INH PRN UD, #1 INHALER Aspirin (Aspirin) 325 Mg Tab 325 MG PO DAILY, TAB Cyanocobalamin (Vitamin B12 500MCG) 500 Mcg Tab 2000 MCG PO DAILY, TAB Pioglitazone (Actos) 30 Mg Tab 1 TAB PO DAILY for 90 Days, #90 TAB 3 Refills Sildenafil Citrate (Viagra) 100 Mg Tab 100 MG PO PRN, TAB Simvastatin (Zocor) 40 Mg Tab 40 MG PO QPM, TAB Temazepam (Restoril) 30 Mg Cap 30 MG PO HS, 0 Refills Discontinued Medications: Diltiazem Hcl Ext Rel (Tiazac) 120 Mg Capcr 120 MG PO DAILY, CAP Discharge Exam Review of Systems: Constitutional: No chills, No fatigue, No fever, No problem reported, No sweats, No weakness, No weight loss Eyes: No diplopia, No discharge, No eye pain, No problem reported, No redness, No worsening of vision ENT: No dental problems, No hearing loss, No nasal symptoms, No problem reported, No sore throat, No tinnitus, No trouble swallowing, No unusual epistaxis Respiratory: No cough, No dyspnea at rest, No dyspnea on exertion, No hemoptysis, No problem reported, No shortness of breath, No sputum, No wheezing Cardiovascular: No PND, No chest pain, No claudication, No edema, No orthopnea, No palpitations, No problem reported Abdomen: No GI bleeding, No constipation, No diarrhea, No nausea, No pain, No problem reported, No vomiting Musculoskeletal: No calf pain, No joint pain, No muscle pain, No problem reported, No swelling Neurologic: No balance problems, No memory loss, No numbness/tingling, No paralysis, No problem reported, No vertigo, No weakness Psychiatric: No anhedonism, No anxiety, No depression symptoms, No insomnia , No problem reported, No substance abuse Endocrine: No excessive thirst, No excessive urination, No fatigue, No problem reported Hematologic / Lymphatic: No abnormal bleeding/bruising, No clotting problems , No night sweats, No problem reported, No swollen lymph nodes Integumentary: No bleeding, No color change, No itch, No new/changing skin lesions, No problem reported, No rash Physical Exam: General Appearance: WD/WN, no apparent distress Eyes: normal inspection, EOMI ENT: normal ENT inspection Neck: supple Respiratory/Chest: chest non-tender, lungs clear, normal breath sounds, no respiratory distress, no accessory muscle use Cardiovascular: regular rate, rhythm, no edema, no gallop, no JVD, no murmur , normal peripheral pulses Abdomen / GI: normal bowel sounds, non tender, soft, no organomegaly, no pulsatile mass, normal rectal exam Extremities: normal inspection, no calf tenderness, normal capillary refill , no pedal edema, normal range of motion Neurologic/Psychiatric: pinner printed circuit boards II-XII nml as tested, no motor/sensory deficits , alert, normal mood/affect, normal reflexes, oriented x 3 Skin: normal color, warm/dry, no rash Hospital Course 81-year-old male with a history of diabetes mellitus, hyperlipidemia, COPD, and insomnia who presented to the ED with chest pain and fatigue. [facility] this [facility] and was found to have tachycardia at rest. He was started on Cardizem at that time. He was also put on 24-hour Holter monitor which revealed 5 second pauses, at which time his Cardizem was stopped. The patient was found to be in A. fib with RVR upon arrival to the ED. The patient denies any previous history of A. fib, but notes that he's been more fatigued in the last month. for his Tachybradycardia syndrome / Aflutter with RVR-s/p pacemaker placement 03/15, procedure went uneventful. next day his heart rate went to 130/minute so his his metoprolol was increased to TID and he was kept one more day. today he was cleared by fountain brush assembler for discharge. instructed to start AC on Wednesday, Apixaban 5mg BID -Echo 03/11/17: Left atrium mildly dilated. Left ventricle normal in size. Mild concentric LVH. EF 50-55%. Mild aortic valve thickening. Trace to mild AR. Mild MR. Trace TR. Right atrium mildly dilated for his Diabetes mellitus type 2 HgbA1c on 03/14 is 7, restarted pioglitazone upon discharge he was kept on Insulin sliding scale while in patient Total Time Spent: Greater than 30 minutes This includes examination of the patient, discharge planning, medication reconciliation, and communication with other providers. Discharge Instructions Please refer to the electronic Patient Visit Report (Discharge Instructions) for additional information.
[2017-03-17 10:15] VITALS: BP 107/67; PULSE 86; TEMP 36.8; O2SAT 99
[2017-05-07] MEDS ORDERED: METO50TA16 PO (13:49)
[2017-05-07] MEDS ORDERED: ACT/15 PO (13:49)
[2017-05-07] MEDS ORDERED: SIMV40TA2 PO (13:49)
[2017-05-07] MEDS ORDERED: AMIO200T4 PO (13:49)
[2017-05-07] MEDS ORDERED: VITAMIN B12 PO (13:49)
[2017-05-07] MEDS ORDERED: ASPCH81X PO (13:49)
[2017-05-14] MEDS ORDERED: OXYC7.5T65 PO (09:02)
[2017-06-11] MEDS ORDERED: APIX1TAB3 PO (07:07)
[2017-07-13] MEDS ORDERED: TRAM-10 PO (11:37)
[2017-07-13] MEDS ORDERED: CIPR-255 PO (11:37)
== END 2017-03-17 10:55 | disposition home or self-care (01) | DRG 243 ==
LOC: ENRESERVDT → ENRESERVTM → C.EDB 20:59 → C.2T 03-13 01:28
PROVIDERS: ADMIT Hospitalist; ATTEND Internal Medicine
PROC: 02HK3JZ Insertion of Pacemaker Lead into Right Ventricle, Percutaneous Approach (ICD-10-PCS; principal; 2017-03-15 07:53)
PROC: 0JH606Z Insertion of Pacemaker, Dual Chamber into Chest Subcutaneous Tissue and Fascia, Open Approach (ICD-10-PCS; principal; 2017-03-15 07:53)
PROC: 02H63JZ Insertion of Pacemaker Lead into Right Atrium, Percutaneous Approach (ICD-10-PCS; principal; 2017-03-15 07:53)
DX: I49.5 Sick sinus syndrome (principal); I48.92 Unspecified atrial flutter; E11.9 Type 2 diabetes mellitus without complications; I48.91 Unspecified atrial fibrillation; E78.5 Hyperlipidemia, unspecified; I10 Essential (primary) hypertension; N40.0 Benign prostatic hyperplasia without lower urinary tract symptoms; N52.9 Male erectile dysfunction, unspecified; E78.00 Pure hypercholesterolemia, unspecified; G47.00 Insomnia, unspecified; E53.8 Deficiency of other specified B group vitamins; J44.9 Chronic obstructive pulmonary disease, unspecified; I08.3 Combined rheumatic disorders of mitral, aortic and tricuspid valves; Z88.8 Allergy status to other drugs, medicaments and biological substances; Z79.82 Long term (current) use of aspirin; Z79.899 Other long term (current) drug therapy; Z90.49 Acquired absence of other specified parts of digestive tract; Z87.891 Personal history of nicotine dependence; Z85.038 Personal history of other malignant neoplasm of large intestine; Z88.6 Allergy status to analgesic agent; Z88.5 Allergy status to narcotic agent

== ENCOUNTER → 2017-03-29 | Outpatient (CLI) | payer OTHER, MEDICARE ==
[~2017-03-29] MED LIST changes: +ACT30 PO; +AMIO200T4 PO; +APIX1TAB3 PO; +ASPCH81X PO; +CIPR-255 PO; -CLC100 PO; -IBUP-1050 PO; +METO50TA16 PO; +METO50TA17 PO; +OXYC7.5T65 PO; +SILD100T PO; -SIMV20TA5 PO; +SIMV40TA2 PO; +TRAM-10 PO; +VITAMIN B12 PO; +VNTHFA/IN INH
--- NOTE | 2017-03-29 14:56 | DIAGNOSTIC IMAGING REPORT ---
RENAL ULTRASOUND CLINICAL HISTORY: PROTEINURIA, HEMATURIA COMPARISON STUDY: CT of the abdomen July 30, 2010. TECHNIQUE: Sonography of the kidneys and the urinary bladder was performed. FINDINGS: The right kidney measures 12 cm in maximal dimension and the left measures 14 cm. Note is again made of a large septated left renal cyst that measures approximately 22 x 12 x 12 cm. There is a 2 cm right renal cyst. There is no hydronephrosis. Both ureteral jets were identified. IMPRESSION: 1. No hydronephrosis. 2. Multiple renal cysts, including a large left renal cyst. Electronically signed by: Howard Lucio M.D. 03/29/2017 2:55 PM Dictated Date/Time: 03/29/2017 2:53 PM
== END | disposition home or self-care (01) ==
LOC: C.ULTR 14:25
PROVIDERS: ATTEND Internal Medicine Cardiovascular Disease
DX: R80.9 Proteinuria, unspecified (principal); R31.9 Hematuria, unspecified

== ENCOUNTER → 2017-04-01 | Outpatient (CLI) | payer OTHER, MEDICARE ==
[2017-04-01 16:51] LABS: URINE APPEARANCE CLEAR (CLEAR); URINE BILIRUBIN NEG (NEG); URINE COLOR YELLOW; URINE NITRITE NEG (NEG); URINE SPECIFIC GRAVITY 1.019 (1.000-1.030); UROBILINOGEN NEG (NEG); ZZUR CULT IF INDIC CLEAN CATCH NO
[2017-04-01 16:55] LABS: MANUAL MICROSCOPIC REQUIRED? NO; REVIEW REQ? NO
[2017-04-01 17:12] LABS: URINE PROTIEN/CREAT RATIO 0.2 (0-0.2); URINE TOTAL PROTEIN 14.7 mg/dl (0-11.9)
== END | disposition home or self-care (01) ==
LOC: C.LAB1850 15:24
PROVIDERS: ATTEND Internal Medicine Nephrology
DX: R31.29 Other microscopic hematuria (principal)

== ENCOUNTER → 2017-04-09 | Outpatient (CLI) | payer OTHER, MEDICARE ==
[~2017-04-09] MED LIST changes: +OPTIRAY 320 IV PRN
--- NOTE | 2017-04-09 11:01 | DIAGNOSTIC IMAGING REPORT ---
CT ABD/PELVIS IV AND ORAL CONT CLINICAL HISTORY: GROSS HEMATURIA COMPARISON STUDY: 07/30/2010, renal ultrasound dated 03/29/2017 TECHNIQUE: Following the IV administration of 93 mL of Optiray-320, CT scan of the abdomen and pelvis was performed from the lung bases to the proximal femurs. Images are reviewed in the axial, sagittal, and coronal planes. IV contrast was administered without complication. CT DOSE: 1050.69 mGy.cm FINDINGS: Lower chest: There is a 33 mm septated cystic focus within the left lower lobe, unchanged the preceding study and therefore likely benign. Liver: The contrast-enhanced liver is normal in size, contour, and attenuation. There is no intrahepatic biliary ductal dilatation. The hepatic veins and portal veins are patent. Gallbladder: Unremarkable. Spleen: Normal in size and attenuation. Pancreas: There is atrophy. No focal masses are visualized. Adrenal glands: There is a 9 mm left adrenal gland nodule, similar to the preceding study. Kidneys: There are multiple bilateral renal cysts. These include a exophytic lower pole left renal cyst measuring 11 cm, an exophytic mid pole left renal cyst measuring 18 cm. There is an enlarging exophytic 27 mm nodule arising from the upper pole the right kidney. This exceeds water attenuation with a Hounsfield attenuation value of 42. A dedicated renal CT scan is recommended in follow-up to exclude to differentiate a hyperdense cyst from solid renal mass. There is a 6 mm distal right ureteral calculus just proximal to the right ureterovesical junction. There are minimal secondary obstructive changes. Bowel: There are no transition zones indicate bowel obstruction. There is a ventral hernia containing a small bowel loop. No obstructive changes are evident. There is extensive colonic diverticulosis. No acute peridiverticular inflammatory changes are visualized. Peritoneum: There is no intraperitoneal free air or abdominal ascites. There is a small fat-containing umbilical hernia. There is an infrarenal ventral hernia containing a loop of small bowel. There are no obstructive changes. The hernia sac measures 14 cm transversely. There are fat-containing inguinal hernias. Vasculature: The abdominal aorta is normal in course and caliber. Adenopathy: None. Pelvic viscera: The bladder, and pelvic viscera are unremarkable. Skeletal structures: No destructive osseous lesions are seen. IMPRESSION: 1. 6 mm distal right ureteral calculus with minor secondary obstructive changes 2. Multiple renal cysts including an 18 cm left renal cyst 3. Enlarging 27 mm indeterminate upper pole right renal lesion. A dedicated renal CT scan is recommended in follow-up to differentiate a hyperdense cyst from solid renal neoplasm. 4. Infraumbilical hernia containing a knuckle of small bowel. No obstructive changes are evident 5. Small fat-containing umbilical and inguinal hernias 6. Pandiverticulosis 7. No evidence of bowel obstruction. No evidence of free air. Electronically signed by: George Ornelas M.D. 04/09/2017 11:00 AM Dictated Date/Time: 04/09/2017 10:46 AM
== END | disposition home or self-care (01) ==
LOC: C.CTS 10:17
PROVIDERS: ATTEND Internal Medicine Nephrology
DX: R31.0 Gross hematuria (principal); N20.1 Calculus of ureter; N28.1 Cyst of kidney, acquired; N28.9 Disorder of kidney and ureter, unspecified; K40.90 Unilateral inguinal hernia, without obstruction or gangrene, not specified as recurrent; K42.9 Umbilical hernia without obstruction or gangrene; K57.30 Diverticulosis of large intestine without perforation or abscess without bleeding

== ENCOUNTER → 2017-04-28 | Outpatient (CLI) | payer OTHER, MEDICARE ==
[~2017-04-28] MED LIST changes: -OPTIRAY 320 IV PRN
[2017-04-28 13:27] LABS: URINE APPEARANCE CLEAR (CLEAR); URINE BILIRUBIN NEG (NEG); URINE COLOR YELLOW; URINE NITRITE NEG (NEG); UROBILINOGEN NEG (NEG); ZZUR CULT IF INDIC CLEAN CATCH NO
[2017-04-28 13:30] LABS: MANUAL MICROSCOPIC REQUIRED? NO; REVIEW REQ? NO
== END | disposition home or self-care (01) ==
LOC: C.LAB1850 12:04
PROVIDERS: ATTEND Internal Medicine Nephrology
DX: R31.0 Gross hematuria (principal)

== ENCOUNTER → 2017-04-28 | Outpatient (CLI) | payer OTHER, MEDICARE ==
--- NOTE | 2017-04-28 12:13 | DIAGNOSTIC IMAGING REPORT ---
KUB HISTORY: N20.0 [id number] COMPARISON: Abdomen and pelvis CT 04/09/2017. FINDINGS: The bowel gas pattern is unremarkable. There are no dilated loops of small bowel to suggest an obstruction. No renal calculi. No change in the 7 mm stone within the distal right ureter. No pneumoperitoneum or pneumatosis. IMPRESSION: No change in the 7 mm distal right ureteral stone. Electronically signed by: Bernard Kiran M.D. 04/28/2017 12:12 PM Dictated Date/Time: 04/28/2017 12:09 PM
== END | disposition home or self-care (01) ==
LOC: C.RAD1850 11:56
PROVIDERS: ATTEND Internal Medicine Nephrology
DX: N20.0 Calculus of kidney (principal); N20.1 Calculus of ureter; R31.0 Gross hematuria

== ENCOUNTER → 2017-05-07 | Outpatient (CLI) | payer OTHER, MEDICARE ==
[2017-05-07 13:06] LABS: BASO % 0.5 %; BASO ABS # 0.03 K/uL (0-0.2); COMPLETE YES; HEMATOCRIT 42.9 % (42-52); IG% 0.3 %; LYMPH % 22.7 %; LYMPH ABS # 1.49 K/uL (1.2-3.4); MEAN CELL VOLUME 92.1 fL (80-100); MEAN CORPUSCULAR HEMOGLOBIN 30.9 pg (25-34); MEAN CORPUSCULAR HGB CONC 33.6 g/dl (32-36); MONO % 8.8 %; NEUT % 63.7 %; PLATELET COUNT 183 K/uL (130-400); RED BLOOD COUNT 4.66 M/uL (4.7-6.1); WHITE BLOOD COUNT 6.57 K/uL (4.8-10.8)
[2017-05-07 13:25] LABS: BLOOD UREA NITROGEN 25 mg/dl (7-18); BUN/CREATININE RATIO 22.9 (10-20); CALCIUM 9.3 mg/dl (8.5-10.1); CARBON DIOXIDE 26 mmol/L (21-32); CHLORIDE 107 mmol/L (98-107); GLUCOSE 125 mg/dl (70-99); POTASSIUM 4.6 mmol/L (3.5-5.1); SODIUM 139 mmol/L (136-145)
== END | disposition home or self-care (01) ==
LOC: C.LAB1850 11:58
PROVIDERS: ATTEND Urology
DX: N20.0 Calculus of kidney (principal)

== ENCOUNTER → 2017-05-13 | Outpatient (CLI) | payer OTHER, MEDICARE ==
[~2017-05-13] MED LIST changes: -ACT30 PO; -ASPI325T4 PO; -CYAN500T13 PO; -METO50TA17 PO; -VNTHFA/IN INH
--- NOTE | 2017-05-13 16:25 | DIAGNOSTIC IMAGING REPORT ---
KUB CLINICAL HISTORY: N20.0 [id number] COMPARISON STUDY: 04/28/2017 FINDINGS: Degenerative changes are present within the lumbar spine. There is no pathologic bowel dilatation. The right renal shadow is partially obscured overlying bowel gas. No renal calculi are visualized. There is a faint 8 mm calcification within the right pelvic basin unchanged in appearance from the prior study. This likely represents the previously described distal right ureteral calculus. IMPRESSION: 8 mm right pelvic basin calcification, likely representing the previously described distal right ureteral calculus Electronically signed by: George Ornelas M.D. 05/13/2017 4:24 PM Dictated Date/Time: 05/13/2017 4:22 PM
== END | disposition home or self-care (01) ==
LOC: C.RAD1850 16:03
PROVIDERS: ATTEND Urology
DX: N20.0 Calculus of kidney (principal)

== ENCOUNTER → 2017-05-14 | Day surgery (SDC) | payer OTHER, MEDICARE ==
[2017-05-07 13:50] VITALS: Ht 180.3 cm; Wt 96.4 kg
[~2017-05-14] VITALS: Ht 180.3 cm; Wt 96.4 kg
[~2017-05-14] MED LIST changes: +ATROPINE SULFATE 0.1 MG/ML 5ML SYR IV PRN; +CIPROFLOXACIN 400MG / D5W IV SCH; +DEXAMETHASONE SOD INJ 4 MG/ML VIAL IV PRN; +DEXAMETHASONE SOD INJ 4 MG/ML VIAL ONE; +EpHEDrine SULFATE INJ 50 MG/ML AMP IV PRN; +FENTANYL CITRATE INJ 50 MCG/1 ML 2 ML VIAL IV PRN; +FENTANYL CITRATE INJ 50 MCG/1 ML 2 ML VIAL ONE; +LABETALOL HCL IV 5 MG/ML 20ML IV PRN; +LACTATED RINGER'S 1000ML 1,000 ML IV SCH; +LIDOCAINE HCL 2% 2 ML VIAL (20MG/ML) ONE; +METOCLOPRAMIDE HCL INJ 5 MG/ML 2 ML VIAL IV PRN; +MIDAZOLAM HCL 1 MG/ML 2ML VIAL ONE; +MoRPHine SULFATE 10 MG/ML CARP/VIAL IV PRN; +ONDANSETRON INJ 2 MG/ML 2 ML VIAL IV PRN; +ONDANSETRON INJ 2 MG/ML 2 ML VIAL ONE; +OXYCODONE/ACETAMINOPHEN 5-325 TAB PO PRN; +PHENYLEPHRINE 100MCG/ML 5ML SYR IV PRN; +PROPOFOL IV EMULSION 10 MG/ML 20 ML VIAL IV ONE
--- NOTE | 2017-05-14 07:33 | History & Physical Bridge Note ---
H&P Re-Evaluation Bridge Note: I have examined the patient, reviewed the History & Physical and in the interval since the performance of the History & Physical I have noted the following changes of clinical significance: No changes noted
--- NOTE | 2017-05-14 08:25 | [facility] Operative Report ---
Operative Report Operative Date May 14, 2017. Pre-Operative Diagnosis Right Ureteral Calculi Post-Operative Diagnosis Same Procedure(s) Performed Right Extracorporeal Shock Wave Lithotripsy Surgeon Dr. Belinda Catalan Brake Adjuster Surgeon(s) None Estimated Blood Loss 0 Findings Excellent stone fragmentation Specimens 0 Drains NA Anesthesia [facility] Complication(s) None Disposition Recovery Room / PACU Indications Right distal ureteral stone Description of Procedure The patient was brought to the litho suite. He was correctly identified and the stone was visualized on his most recent x-rays. After the correct time out was performed the patient was positioned over the therapy head. An adequate level of anesthesia was administered. The extracorporeal shockwave lithotripsy treatment was then commenced. Please see the [facility] sheet for complete treatment summary. After completion of the procedure the patient was taken to the recovery room in stable condition. I attest to the content of the Intraoperative Record and any orders documented therein. Any exceptions are noted below.
--- NOTE | 2017-05-14 09:04 | Discharge Instructions ---
Discharge Instructions Date of Service May 14, 2017. Admission Reason for Admission: Stones Discharge Discharge Diagnosis / Problem: R ureteral stone s/p ESWL Discharge Goals Goal(s): Decrease discomfort, Improve function, Improve disease control, Therapeutic intervention Activity Recommendations Activity Limitations: per Instructions/Follow-up section Lifting Limitations: no more than 25 pounds, gradually increase as tolerated ( over the next 3-5 days) Exercise/Sports Limitations: rest today, gradually increase as tolerated (over the next 3-5 days) May Resume Sexual Activity: after one week Shower/Bathe: no limitations Driving or Machine Use: resume 1 day after discharge . Instructions / Follow-Up Instructions / Follow-Up In office as scheduled with [facility] Xray prior to visit Discharge Diet Recommended Diet: Regular Diet (good fluid intake) Procedures Procedures Performed: Right Extracorporeal Shock Wave Lithotripsy Pending Studies Studies pending at discharge: no Laboratory Results Hemoglobin A1c Test 03/13/17 09:00 Range/Units Estimated Average Glucose 154 mg/dl Hemoglobin A1c 7.0 H 4.5-5.6 % Medical Emergencies . Who to Call and When: Medical Emergencies: If at any time you feel your situation is an emergency, please call 911 immediately. . Non-Emergent Contact Non-Emergency issues call your: Urologist Call Non-Emergent contact if: you have a fever, temperature is above 101, your pain is not controlled, your pain is worsening, your pain is unusual for you, your pain is concerning you, you have any medication questions . . "Provider Documentation" section prepared by Rik Catalan. . VTE Core Measure Inpt VTE Proph given/why not?: SCD's [place] Drug Monitoring Program Search Results: patient reviewed within database, no issues identified
--- NOTE | 2017-05-14 09:09 | [facility] Post Operative Brief Note ---
Immediate Operative Summary Operative Date May 14, 2017. Pre-Operative Diagnosis Right Distal Ureteral Calculi Post-Operative Diagnosis Same Procedure(s) Performed Right Extracorporeal Shock Wave Lithotripsy Surgeon Dr. Belinda Catalan Care Giver Surgeon(s) None Estimated Blood Loss 0 Findings Excellent stone fragmentation after ESWL Specimens 0 Drains NA Anesthesia [facility] Complication(s) None Disposition Recovery Room / PACU
[2017-05-14 09:42] VITALS: TEMP 36.5
--- NOTE | 2017-05-14 09:54 | Anesthesia Progress Nt - [facility] ---
Anesthesia Post Op Note Date & Time May 14, 2017 at 09:54 Vital Signs Pain Intensity: 0 Vital Signs Past 12 Hours Date Time Temp Pulse Resp B/P (MAP) Pulse Ox O2 Delivery O2 Flow Rate FiO2 05/14/17 09:42 36.5 65 16 151/90 (110) 95 Room Air 05/14/17 09:31 139/82 05/14/17 09:28 61 12 94 05/14/17 09:28 60 12 05/14/17 09:26 36.4 60 20 148/78 96 Room Air 05/14/17 09:26 148/78 05/14/17 09:23 61 19 05/14/17 09:23 61 19 96 05/14/17 09:22 61 13 97 05/14/17 09:22 61 13 05/14/17 09:21 135/96 05/14/17 09:17 61 11 100 05/14/17 09:17 61 11 05/14/17 09:16 156/88 05/14/17 09:12 63 11 05/14/17 09:12 63 11 100 05/14/17 09:11 140/87 05/14/17 09:07 82 19 99 05/14/17 09:07 81 19 05/14/17 09:06 141/119 05/14/17 09:03 122/99 05/14/17 09:03 36.0 89 20 122/99 98 Room Air 05/14/17 06:27 36.5 74 16 147/83 (104) 92 Room Air Notes Mental Status: alert / awake / arousable, participated in evaluation Pt Amnestic to Procedure: Yes Nausea / Vomiting: adequately controlled Pain: adequately controlled Airway Patency, RR, SpO2: stable & adequate BP & HR: stable & adequate Hydration State: stable & adequate Anesthetic Complications: no major complications apparent
[2017-05-14 10:08] VITALS: BP 154/81; PULSE 61; O2SAT 95
== END | disposition home or self-care (01) ==
LOC: X.SURG 06:01
PROVIDERS: ATTEND Urology
DX: N20.0 Calculus of kidney (principal); N40.1 Benign prostatic hyperplasia with lower urinary tract symptoms; N13.8 Other obstructive and reflux uropathy; E78.5 Hyperlipidemia, unspecified; J44.9 Chronic obstructive pulmonary disease, unspecified; I48.91 Unspecified atrial fibrillation; E11.9 Type 2 diabetes mellitus without complications; Z87.891 Personal history of nicotine dependence; Z90.49 Acquired absence of other specified parts of digestive tract; Z80.42 Family history of malignant neoplasm of prostate

== ENCOUNTER → 2017-05-25 | Outpatient (CLI) | payer OTHER, MEDICARE ==
[~2017-05-25] MED LIST changes: -ATROPINE SULFATE 0.1 MG/ML 5ML SYR IV PRN; -CIPROFLOXACIN 400MG / D5W IV SCH; -DEXAMETHASONE SOD INJ 4 MG/ML VIAL IV PRN; -DEXAMETHASONE SOD INJ 4 MG/ML VIAL ONE; -EpHEDrine SULFATE INJ 50 MG/ML AMP IV PRN; -FENTANYL CITRATE INJ 50 MCG/1 ML 2 ML VIAL IV PRN; -FENTANYL CITRATE INJ 50 MCG/1 ML 2 ML VIAL ONE; -LABETALOL HCL IV 5 MG/ML 20ML IV PRN; -LACTATED RINGER'S 1000ML 1,000 ML IV SCH; -LIDOCAINE HCL 2% 2 ML VIAL (20MG/ML) ONE; -METOCLOPRAMIDE HCL INJ 5 MG/ML 2 ML VIAL IV PRN; -MIDAZOLAM HCL 1 MG/ML 2ML VIAL ONE; -MoRPHine SULFATE 10 MG/ML CARP/VIAL IV PRN; -ONDANSETRON INJ 2 MG/ML 2 ML VIAL IV PRN; -ONDANSETRON INJ 2 MG/ML 2 ML VIAL ONE; -OXYCODONE/ACETAMINOPHEN 5-325 TAB PO PRN; -PHENYLEPHRINE 100MCG/ML 5ML SYR IV PRN; -PROPOFOL IV EMULSION 10 MG/ML 20 ML VIAL IV ONE
--- NOTE | 2017-05-25 12:19 | DIAGNOSTIC IMAGING REPORT ---
[facility] CLINICAL HISTORY: N20.0 [id number] nephrocalcinosis COMPARISON STUDY: 05/13/2017 FINDINGS: The 8 mm calcification of the distal ureter procedure described is approximately 2 cm distal to its previous location. This potentially is within the bladder or at the right ureterovesical junction. IMPRESSION: The distal right ureteral calculus now is either within the bladder or at the level of the right ureteral vesicle junction The above report was generated using voice recognition software. It may contain grammatical, syntax or spelling errors. Electronically signed by: Jonathan Morse M.D. 05/25/2017 12:18 PM Dictated Date/Time: 05/25/2017 12:17 PM
== END | disposition home or self-care (01) ==
LOC: C.RAD1850 11:58
PROVIDERS: ATTEND Urology
DX: N20.0 Calculus of kidney (principal)

== ENCOUNTER → 2017-06-11 | Day surgery (SDC) | payer OTHER, MEDICARE ==
[~2017-06-11] VITALS: Ht 180.3 cm; Wt 95.0 kg
[~2017-06-11] MED LIST changes: +LIDOCAINE HCL 2% 2 ML VIAL (20MG/ML) ONE; +PROPOFOL IV EMULSION 10 MG/ML 20 ML VIAL IV ONE
[2017-06-11 07:08] VITALS: BP 154/91; PULSE 77; TEMP 36.5; O2SAT 95; Ht 180.3 cm; Wt 95.0 kg
[2017-06-11 07:30] VITALS: BP 139/79; PULSE 67; O2SAT 96
[2017-06-11 07:35] VITALS: BP 123/66; PULSE 80; O2SAT 96
[2017-06-11 07:40] VITALS: BP 114/73; PULSE 80; O2SAT 96
--- NOTE | 2017-06-11 07:49 | Cardiology Procedure Brief Nt ---
Preliminary Cardiology Note Procedure Date Jun 11, 2017. Pre-Procedure Diagnosis Atrial Flutter Post-Procedure Diagnosis Atrial Flutter Procedure(s) Performed Cardioversion with 200 Joules Biphasic sync mode with tenriism of NSR Reamer Hand Karina Mounting Inspector(s) none Estimated Blood Loss none Preliminary Findings tenriism NSR Recommendations none Specimens none Complication(s) None Disposition
--- NOTE | 2017-06-11 07:50 | History & Physical Bridge Note ---
H&P Re-Evaluation Bridge Note: I have examined the patient, reviewed the History & Physical By Dr Balderrama and in the interval since the performance of the History & Physical I have noted the following changes of clinical significance: No changes noted
--- NOTE | 2017-06-11 07:52 | Discharge Instructions ---
Discharge Instructions Procedure Procedure Date: Jun 11, 2017. Reason for Visit: Atrial Flutter Discharge Discharge Date: Jun 11, 2017. Discharge Diagnosis: Atrial Flutter Last Recorded Wt (Kilograms): 95 Medications Stopped Medication(s): none Anesthesia Post Anesthesia Instructions: If you have had General Anesthesia or IV Sedation: * Do not drive today. * Do not make important decisions or sign legal documents today. * For nausea and vomiting use only clear liquids such as: tea, soda, bouillon until nausea subsides, then gradually increase diet as tolerated. * If you have any concerns or questions, call your surgeon's office. If physician is unavailable and it is an emergency, call 911 or go to the nearest emergency room. Instructions Activity Recommendations: driving or machine use limit, limitations Recommended Home Diet: no limitations Allergies: Coded Allergies: Naproxen (Verified Adverse Reaction, Unknown, GI UPSET, 05/14/17) Zolpidem (Verified Adverse Reaction, Unknown, "WEIRD DREAMS", 05/14/17) Follow Up ACTIVITY RECOMMENDATIONS: * May resume driving tomorrow. SPECIAL CARE: * May apply burn ointment for skin irritation. * Please contact physician for any lightheadedness, dizziness or palpitations. Your Doctors Instructions noted above were prepared by provider Costa Collins. Patient Signature Section: Patient Instructions Signature Page Kp Cornejo Patient (or Guardian) Signature/Date: I have read and understand the instructions given to me by my caregivers. Caregiver/RN/Doctor Signature/Date: The above-named patient and/or guardian has received patient instructions on this date. + Original Patient Signature Page (only) stays with chart. Please make copy for patient.
--- NOTE | 2017-06-11 08:04 | OPERATIVE REPORT ---
DATE OF OPERATION: 06/11/2017 DATE OF PROCEDURE: 06/11/2017 INDICATION: Symptomatic atrial flutter. The patient has been on apixaban for greater than 3 weeks 5 mg twice a day. 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 Anesthesia provided sedation with propofol. Once he was adequately sedated, he was cardioverted using 200 joules in a sync biphasic mode with latter day of normal sinus rhythm (atrial paced rhythm, ventricularly sensed rhythm). He tolerated the procedure well. At the end of procedure, he was answering all questions and moving his hands and legs appropriately. His medications will remain the same. I attest to the content of the Intraoperative Record and any orders documented therein. Any exception s are noted below.
[2017-06-11 08:30] VITALS: BP 135/70; PULSE 64; O2SAT 94
--- NOTE | 2017-06-11 11:40 | Anesthesiology Progress Note ---
Anesthesia Post Op Note Date & Time Jun 11, 2017 at 11:40 Vital Signs Pain Intensity: 0 Vital Signs Past 12 Hours Date Time Temp Pulse Resp B/P (MAP) Pulse Ox O2 Delivery O2 Flow Rate FiO2 06/11/17 08:30 64 16 125/68 (87) 94 Room Air 135/70 (91) 06/11/17 08:15 64 16 117/68 (84) 94 Room Air 06/11/17 08:01 65 16 121/64 (83) 94 Room Air 06/11/17 07:51 62 18 113/67 (82) 94 Room Air 06/11/17 07:41 61 18 105/67 (80) 94 Room Air 06/11/17 07:40 80 18 114/73 96 Nasal Cannula 6 06/11/17 07:35 80 18 123/66 96 Nasal Cannula 6 06/11/17 07:30 67 18 139/79 96 Nasal Cannula 6 06/11/17 07:08 36.5 77 18 154/91 95 Room Air Notes Mental Status: alert / awake / arousable, participated in evaluation Pt Amnestic to Procedure: Yes Nausea / Vomiting: adequately controlled Pain: adequately controlled Airway Patency, RR, SpO2: stable & adequate BP & HR: stable & adequate Hydration State: stable & adequate Anesthetic Complications: no major complications apparent
== END | disposition home or self-care (01) ==
LOC: C.CATH 06:58
PROVIDERS: ATTEND Internal Medicine Cardiovascular Disease
DX: I48.92 Unspecified atrial flutter (principal); N28.1 Cyst of kidney, acquired; I49.5 Sick sinus syndrome; E11.9 Type 2 diabetes mellitus without complications; E78.5 Hyperlipidemia, unspecified; Z87.891 Personal history of nicotine dependence; Z95.0 Presence of cardiac pacemaker

== ENCOUNTER 2017-07-07 08:27 | Day surgery (SDC) | payer OTHER, MEDICARE ==
[~2017-07-07] VITALS: Ht 180.3 cm; Wt 96.5 kg
[~2017-07-07 08:27] MED LIST changes: -ASPCH81X PO; -CIPR-255 PO; -LIDOCAINE HCL 2% 2 ML VIAL (20MG/ML) ONE; -OXYC7.5T65 PO; -PROPOFOL IV EMULSION 10 MG/ML 20 ML VIAL IV ONE; -SILD100T PO; -TRAM-10 PO
[2017-07-07 08:50] VITALS: BP 160/86; PULSE 79; TEMP 36.5; O2SAT 93; BMI 29.0
[2017-07-07 08:54] VITALS: BP 160/86; PULSE 79; TEMP 36.5; O2SAT 93; Ht 180.3 cm; Wt 96.5 kg
[2017-07-07 08:59] LABS: PLATELET COUNT 169 K/uL (130-400)
[2017-07-07 09:11] LABS: PARTIAL THROMBOPLASTIN RATIO 1.1
[2017-07-07 09:14] LABS: PROTHROMBIN TIME (PATIENT) 10.9 SECONDS (9.0-12.0)
--- NOTE | 2017-07-07 11:19 | Discharge Instructions ---
Discharge Instructions Procedure Procedure Date: Jul 07, 2017. Reason for visit: Left Renal Cysts *Drainage*. Discharge Discharge Date: Jul 07, 2017. Discharge Diagnosis: same Instructions Activity Recommendations: No limitations Return to School/Work: no limitations Recommended Home Diet: Resume Previous Diet Provider Instructions: ACTIVITY RECOMMENDATIONS: * Rest today. * Resume regular activity in one day. MEDICATIONS: * May take Tylenol or Ibuprofen as needed for pain. DIET: * Resume previous diet. SPECIAL CARE INSTRUCTIONS: Call your doctor if: * Temperature above 101 degrees F. * Pain not relieved by pain medicine ordered. * Increased drainage or redness from incision. * Notify your doctor with any questions or concerns. Call your doctor or go to the nearest Emergency Department if you experience: * Increased chest pain or shortness of breath. FOLLOW UP VISIT: Follow-up with Referring Physician as scheduled. Allergies Coded Allergies: Codeine (Verified Allergy, Unknown, N/V, 07/07/17) Naproxen (Verified Adverse Reaction, Unknown, GI UPSET, 07/07/17) Zolpidem (Verified Adverse Reaction, Unknown, "WEIRD DREAMS", 07/07/17) Shabbir Mazariegos Recommendations: Call your doctor if: * Temperature above 101 degrees * Pain not relieved by pain medicine ordered * There is increased drainage or redness from any incision * You have any unanswered questions or concerns. Your Doctors Instructions noted above were prepared by provider Bernard Kiran. Patient Signature Section: Patient Instructions Signature Page Kp Cornejo Patient (or Guardian) Signature/Date: I have read and understand the instructions given to me by my caregivers. Caregiver/RN/Doctor Signature/Date: The above-named patient and/or guardian has received patient instructions on this date. + Original Patient Signature Page (only) stays with chart. Please make copy for patient.
[2017-07-07 11:20] VITALS: BP 142/71; PULSE 73; TEMP 37; O2SAT 92
[2017-07-07 11:56] VITALS: BP 135/71; PULSE 59; TEMP 36.6; O2SAT 92
--- NOTE | 2017-07-07 12:05 | DIAGNOSTIC IMAGING REPORT ---
ULTRASOUND GUIDED ASPIRATION CLINICAL HISTORY: Left renal cysts. COMPARISON STUDY: Abdomen and pelvis CT 04/09/2017. PROCEDURE: The risks, benefits, and alternatives to ultrasound-guided aspiration of the patient's large left renal cysts were discussed with the patient and written informed consent was obtained. This includes an increased risk of postprocedural bleeding due to the patient currently on anticoagulation. The patient was unable to stop the anticoagulation for the procedure due to a elevated health risk. The patient was positioned supine on the table and preliminary imaging of the left side of the abdomen was performed to determine a safe needle entry site. Under ultrasound guidance a paracentesis needle/sheath was placed into the smaller 11 cm cyst within the left lower quadrant. A total of 700 cc of yellow color fluid was aspirated. The cyst was aspirated to completion. A second paracentesis needle/sheath was placed into the larger 18 cm left renal cyst under ultrasound guidance and a total of 1.6 L of yellow color fluid was aspirated. This was aspirated to near completion. The patient tolerated the procedure well. There were no immediate complications. The fluid was discarded following the procedure. IMPRESSION: Successful ultrasound-guided aspiration of 2 dominant left renal cysts. Electronically signed by: Bernard Kiran M.D. 07/07/2017 12:03 PM Dictated Date/Time: 07/07/2017 11:58 AM
[2017-07-13] MEDS ORDERED: TRAM-10 PO (11:37)
[2017-07-13] MEDS ORDERED: CIPR-255 PO (11:37)
== END 2017-07-07 12:00 | disposition home or self-care (01) ==
LOC: C.ACU 08:27
PROVIDERS: ATTEND Urology
DX: N28.1 Cyst of kidney, acquired (principal); E11.9 Type 2 diabetes mellitus without complications

== ENCOUNTER → 2017-07-13 | Day surgery (SDC) | payer OTHER, MEDICARE ==
[2017-07-02 09:58] VITALS: BMI 29.0
--- NOTE | 2017-07-02 10:41 | PAT Medication Instructions ---
Service Date Jul 02, 2017. Current Home Medication List Amiodarone Hcl (Cordarone), 200 MG PO QAM Apixaban (Eliquis), 5 MG PO BID Metoprolol Tartrate (Lopressor) (Lopressor), 50 MG PO QID Pioglitazone Hcl (Actos), 15 MG PO QPM Simvastatin (Zocor), 20 MG PO QPM Temazepam (Restoril), 30 MG PO HS [Vitamin B12], 1 TAB PO QAM Medication Instructions For Your Scheduled Surgery - Hold the following medications the morning of surgery: [Vitamin B12], 1 TAB PO QAM - Take the following medications the morning of surgery with a sip of water: Amiodarone Hcl (Cordarone), 200 MG PO QAM Apixaban (Eliquis), 5 MG PO BID (okay to continue per surgeon) Metoprolol Tartrate (Lopressor) (Lopressor), 50 MG PO QID - Take the following medications as scheduled the night before surgery: Simvastatin (Zocor), 20 MG PO QPM Temazepam (Restoril), 30 MG PO HS Pioglitazone Hcl (Actos), 15 MG PO QPM Metoprolol Tartrate (Lopressor) (Lopressor), 50 MG PO QID Apixaban (Eliquis), 5 MG PO BID (okay to continue per surgeon) If you have any questions please call us at [phone] or [phone] or [phone]
--- NOTE | 2017-07-02 11:20 | DIAGNOSTIC IMAGING REPORT ---
[facility] CLINICAL HISTORY: Nephrolithiasis. FINDINGS: 2 AP supine abdominal radiographs are compared to study dated 05/25/2017. Correlation is made with abdominal CT dated 04/09/2017. There is a nonobstructed abdominal bowel gas pattern. An 8 mm distal right ureteral calculus is unchanged from previous. No additional renal calculi are identified. A density in the left midabdomen corresponds to a large left renal cyst when correlated with the prior CT scan. The skeletal structures are osteopenic. Moderate lumbosacral spondylosis is observed. IMPRESSION: 1. An 8 mm distal right ureteral calculus is unchanged from prior studies. 2. No additional renal calculi are identified. Electronically signed by: Troy Armando M.D. 07/02/2017 11:19 AM Dictated Date/Time: 07/02/2017 11:17 AM
[2017-07-02 20:01] LABS: MANUAL MICROSCOPIC REQUIRED? NO; REVIEW REQ? NO; URINE APPEARANCE CLEAR (CLEAR); URINE BILIRUBIN NEG (NEG); URINE COLOR YELLOW; URINE NITRITE NEG (NEG); URINE PH 6.5 (4.5-7.5); URINE SPECIFIC GRAVITY 1.019 (1.000-1.030); UROBILINOGEN NEG (NEG)
[~2017-07-13] VITALS: Ht 180.3 cm; Wt 94.8 kg
[~2017-07-13] MED LIST changes: +ACETAMINOPHEN 325 MG TAB PO PRN; +ATROPINE SULFATE 0.1 MG/ML 5ML SYR IV PRN; +CIPR-255 PO; +CIPROFLOXACIN / D5W 400 MG IV SCH; +CONRAY 30% 150ML BOTTLE ONE; +EpHEDrine SULFATE INJ 50 MG/ML AMP IV PRN; +EpHEDrine SULFATE INJ 50 MG/ML AMP ONE; +FENTANYL CITRATE INJ 50 MCG/1 ML 2 ML VIAL IV PRN; +FENTANYL CITRATE INJ 50 MCG/1 ML 2 ML VIAL ONE; +LACTATED RINGER'S 1000ML 1,000 ML IV SCH; +LIDOCAINE HCL 2% 2 ML VIAL (20MG/ML) ONE; +MIDAZOLAM HCL 1 MG/ML 2ML VIAL ONE; +ONDANSETRON INJ 2 MG/ML 2 ML VIAL ONE; +PROPOFOL IV EMULSION 10 MG/ML 20 ML VIAL IV ONE; +SODIUM CHLORIDE 0.9% 1000ML 1,000 ML IV SCH; +TRAM-10 PO; +TRAMADOL HCL 50 MG TAB PO PRN
--- NOTE | 2017-07-13 08:23 | DIAGNOSTIC IMAGING REPORT ---
[facility] CLINICAL HISTORY: Nephrolithiasis. FINDINGS: 2 AP supine abdominal radiographs are compared to study dated 07/02/2017. Correlation is made with abdominal CT dated 04/09/2017. There is a nonobstructed abdominal bowel gas pattern. Findings are equivocal for the continued presence of an 8 mm distal right ureteral calculus when compared to previous. No additional renal calculi are suspected. 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 The skeletal structures are osteopenic. Moderate lumbosacral spondylosis is observed. IMPRESSION: 1. Equivocal persistence of an 8 mm distal right ureteral calculus from prior studies. Clinical correlation will be required. 2. No additional renal calculi are suspected. Electronically signed by: Troy Armando M.D. 07/13/2017 8:21 AM Dictated Date/Time: 07/13/2017 8:15 AM
[2017-07-13 08:26] VITALS: BP 152/84; PULSE 62; TEMP 36.7; O2SAT 96; Ht 180.3 cm; Wt 94.8 kg
--- NOTE | 2017-07-13 11:39 | Discharge Instructions ---
Discharge Instructions Date of Service Jul 13, 2017. Admission Reason for Admission: Stones Discharge Discharge Diagnosis / Problem: stone Discharge Goals Goal(s): Decrease discomfort, Improve function, Increase independence, Improve disease control, Prevent Disease Progression Activity Recommendations Activity Limitations: resume your previous activity Lifting Limitations: none Exercise/Sports Limitations: none May Resume Sexual Activity: when tolerated Shower/Bathe: no limitations Driving or Machine Use: resume 1 day after discharge . Discharge Diet Recommended Diet: Regular Diet Procedures Procedures Performed: Cystoscopy, Right ureteroscopy, Laser Lithotripsy, Stent Insertion Pending Studies Studies pending at discharge: no Medical Emergencies . Who to Call and When: Medical Emergencies: If at any time you feel your situation is an emergency, please call 911 immediately. . Non-Emergent Contact Non-Emergency issues call your: Urologist Call Non-Emergent contact if: you have a fever, temperature is above 101.5, your pain is not controlled, your pain is worsening . . "Provider Documentation" section prepared by Ganga Leyva. . VTE Core Measure Inpt VTE Proph given/why not?: Other Anticoagulation [place] Drug Monitoring Program Search Results: patient reviewed within database, no issues identified
--- NOTE | 2017-07-13 11:44 | [facility] Operative Report ---
Operative Report Operative Date Jul 13, 2017. Pre-Operative Diagnosis Right distal ureteral calculus Post-Operative Diagnosis Right distal ureteral calculus Procedure(s) Performed Cystoscopy, Right ureteroscopy, Laser Lithotripsy, Stent Insertion Surgeon Dr. Hendricks Gambling Broker Surgeon(s) none Estimated Blood Loss 5 mL Findings Extreme distal right ureteral calculus impacted at the orifice - mounded edema with erythema around the orifice Bilobar hypertrophy of the prostate Drains [id number] stent Anesthesia Gen. Complication(s) None Disposition Recovery Room / PACU (stable) Indications Right distal ureteral calculus Description of Procedure Kp Cornejo was identified in the preoperative holding area, appropriate informed consent reviewed and completed, and the patient was transported to the operating suite. Upon arrival he received appropriate preoperative antibiotics in the form of ciprofloxacin. Adequate general anesthesia was achieved, and the patient was placed in dorsal lithotomy position where he was sterilely prepped and draped in standard fashion. I begin the case by passing a 22 Albanian cystoscope with 30 lens. Inspection of the urethra revealed no evidence of stricture disease. His prostate was moderately enlarged with prominently bilobar hypertrophy. Left ureteral orifice was identified immediately upon entry into the bladder. Bladder and general showed no evidence of any malignant transformation or other abnormality. The right ureteral orifice, however, had mounded edema around it was erythematous and somewhat friable. Fluoroscopic examination at that time revealed a stone located directly at the orifice. I was able to cannulate orifice with a sensor wire and a separate 10 Albanian double-lumen catheter. I attempted to push the stone slightly retrograde to accommodate the scope, however was slightly impacted in that area did not easily move retrograde. A guided a second wire beyond the stone as well and performed retrograde pyelogram performed placement without wire. I reentered the bladder with a semirigid ureteroscope over top of one of the working wire over serving others a safety wire. Given the friability of the tissue and his anticoagulation, visualization was somewhat difficult until I was entered into the ureter. Time I immediately encountered an impacted yellow appearing distal calculus. A 400 laser fiber was passed and laser lithotripsy commenced. The stone fragmented relatively easily I was able to irrigate these pieces out of the ureter. Once passage was freed, I was able to navigate the scope into healthy-appearing ureter above the location of the stone. Were no other retained fragments or other evidence of stones in the distal ureter. The site of inflammation of impaction was presently 1cm in length and encompassed the intramural ureter. I repeated her retrograde pyelogram and then placed a 6 Albanian by 26cm double-J ureteral stent. A good curl was seen in the kidney as well as the bladder. I decompressed the bladder and concluded the case. Patient was extended and taken to the PACU in stable condition I attest to the content of the Intraoperative Record and any orders documented therein. Any exceptions are noted below.
--- NOTE | 2017-07-13 12:24 | Anesthesiology Progress Note ---
Anesthesia Post Op Note Date & Time Jul 13, 2017 at 12:24 Vital Signs Pain Intensity: 0 Vital Signs Past 12 Hours Date Time Temp Pulse Resp B/P (MAP) Pulse Ox O2 Delivery O2 Flow Rate FiO2 07/13/17 12:21 140/71 07/13/17 12:20 36.5 60 16 140/71 93 Room Air 07/13/17 12:18 60 18 93 07/13/17 12:18 60 18 07/13/17 12:16 132/76 07/13/17 12:13 60 13 07/13/17 12:13 60 13 93 07/13/17 12:12 60 14 93 07/13/17 12:12 60 14 07/13/17 12:11 121/69 07/13/17 12:07 60 15 07/13/17 12:07 60 15 95 07/13/17 12:06 142/70 07/13/17 12:02 60 13 07/13/17 12:02 60 13 97 07/13/17 12:01 60 12 07/13/17 12:01 60 12 140/73 97 07/13/17 11:56 60 14 138/79 97 07/13/17 11:56 60 14 07/13/17 11:51 60 14 141/71 97 07/13/17 11:51 60 14 07/13/17 11:46 61 13 141/76 99 07/13/17 11:46 61 13 07/13/17 11:42 143/69 07/13/17 11:41 65 07/13/17 11:41 65 97 07/13/17 11:41 36.7 66 16 143/69 97 Oxymask 10 07/13/17 08:26 36.7 62 18 152/84 (106) 96 Room Air Notes Mental Status: alert / awake / arousable, participated in evaluation Pt Amnestic to Procedure: Yes Nausea / Vomiting: adequately controlled Pain: adequately controlled Airway Patency, RR, SpO2: stable & adequate BP & HR: stable & adequate Hydration State: stable & adequate Anesthetic Complications: no major complications apparent
[2017-07-13 12:25] VITALS: BP 153/70; PULSE 62; TEMP 36.5; O2SAT 93
[2017-07-13 12:55] VITALS: BP 149/67; PULSE 60; O2SAT 94
[2017-07-13 13:25] VITALS: BP 139/61; PULSE 60; O2SAT 95
[2017-07-13 15:30] VITALS: BP 198/83; PULSE 64; TEMP 36.8; O2SAT 95
== END | disposition home or self-care (01) ==
LOC: C.ACU 07:15
PROVIDERS: ATTEND Urology
DX: N20.1 Calculus of ureter (principal); I48.91 Unspecified atrial fibrillation; I48.92 Unspecified atrial flutter; N28.1 Cyst of kidney, acquired; I49.5 Sick sinus syndrome; I51.9 Heart disease, unspecified; E78.5 Hyperlipidemia, unspecified; E11.9 Type 2 diabetes mellitus without complications; N40.1 Benign prostatic hyperplasia with lower urinary tract symptoms; N13.8 Other obstructive and reflux uropathy; J44.9 Chronic obstructive pulmonary disease, unspecified; Z95.0 Presence of cardiac pacemaker; Z87.891 Personal history of nicotine dependence; Z79.899 Other long term (current) drug therapy

== ENCOUNTER → 2017-11-16 | Outpatient (CLI) | payer OTHER, MEDICARE ==
[~2017-11-16] MED LIST changes: -ACETAMINOPHEN 325 MG TAB PO PRN; -ATROPINE SULFATE 0.1 MG/ML 5ML SYR IV PRN; -CIPROFLOXACIN / D5W 400 MG IV SCH; -CONRAY 30% 150ML BOTTLE ONE; -EpHEDrine SULFATE INJ 50 MG/ML AMP IV PRN; -EpHEDrine SULFATE INJ 50 MG/ML AMP ONE; -FENTANYL CITRATE INJ 50 MCG/1 ML 2 ML VIAL IV PRN; -FENTANYL CITRATE INJ 50 MCG/1 ML 2 ML VIAL ONE; -LACTATED RINGER'S 1000ML 1,000 ML IV SCH; -LIDOCAINE HCL 2% 2 ML VIAL (20MG/ML) ONE; -MIDAZOLAM HCL 1 MG/ML 2ML VIAL ONE; -ONDANSETRON INJ 2 MG/ML 2 ML VIAL ONE; -PROPOFOL IV EMULSION 10 MG/ML 20 ML VIAL IV ONE; -SODIUM CHLORIDE 0.9% 1000ML 1,000 ML IV SCH; -TRAMADOL HCL 50 MG TAB PO PRN
--- NOTE | 2017-11-17 08:47 | PULMONARY FUNCTION TEST ---
CLINICAL DATA: An 82-year-old male with a height of 71 inches and a weight of [address] Costa Collins for evaluation of dyspnea and cough. The patient has a history of [id number] smoking in the past. Spirometry pre- and post-bronchodilator, lung volumes, and DLCO were performed. FINDINGS: Pre-bronchodilator spirometry demonstrates severe obstructive airways disease. FVC was 50% of predicted. FEV1 was 43% of predicted, [id number] was 30% of predicted. There was significant improvement after inhaled bronchodilator. FVC improved 25% to 63% of predicted. FEV1 improved 9% to 46% of predicted. [id number] improved to 23% to 36% of predicted. Lung volumes show a reduction in slow vital capacity and expiratory reserve volume without evidence of severe air trapping. DLCO was normal. IMPRESSION: Severe obstructive airways disease with improvement after inhaled bronchodilator. MTDD
== END | disposition home or self-care (01) ==
LOC: C.RC 09:00
PROVIDERS: ATTEND Internal Medicine Cardiovascular Disease
DX: R06.09 Other forms of dyspnea (principal)

== ENCOUNTER → 2018-01-03 | Outpatient (CLI) | payer OTHER, MEDICARE ==
--- NOTE | 2018-01-03 12:28 | DIAGNOSTIC IMAGING REPORT ---
(RENAL)RETROPERITON COMP CLINICAL HISTORY: 82 years-old Male presenting with RENAL CYST L. TECHNIQUE: Real-time grayscale and limited color Doppler ultrasound imaging of the kidneys and bladder was performed. COMPARISON: 03/29/2017. FINDINGS: Right kidney: Normal echogenicity of renal parenchyma. Right kidney measures 11.8 cm. No hydronephrosis. Multiple simple appearing cysts noted the largest measuring 2.7 cm. Normal perfusion. Left kidney: Normal echogenicity of renal parenchyma. Left kidney measures 12.6 cm. No hydronephrosis. Previously noted large left renal cyst now measures 14.4 x 7.7 x 10.8 cm. An adjacent smaller 9.2 x 4.3 x 6.0 cm exophytic cyst is also noted. The larger cyst was suggested to be septated on prior studies, although this may be due to the presence of adjacent cysts. Normal perfusion. Bladder: No bladder wall thickening. Right ureteral jet not visualized. Other: None. IMPRESSION: 1. Large left renal cysts without grossly suspicious features. Follow-up as clinically indicated. 2. No hydronephrosis. Electronically signed by: Isael Rodriguez M.D. 01/03/2018 12:27 PM Dictated Date/Time: 01/03/2018 12:21 PM
== END | disposition home or self-care (01) ==
LOC: C.ULTR 11:39
PROVIDERS: ATTEND Urology
DX: N28.1 Cyst of kidney, acquired (principal)

== ENCOUNTER → 2018-02-22 | Outpatient (CLI) | payer OTHER, MEDICARE ==
[~2018-02-22] MED LIST changes: -TRAM-10 PO
[2018-02-22 16:43] LABS: BASO % 0.7 %; BASO ABS # 0.05 K/uL (0-0.2); EOS % 6.8 %; EOS ABS # 0.48 K/uL (0-0.5); HEMATOCRIT 42.9 % (42-52); HEMOGLOBIN 14.7 g/dL (14.0-18.0); IG# 0.02 K/uL (0.00-0.02); LYMPH % 23.7 %; LYMPH ABS # 1.68 K/uL (1.2-3.4); MEAN CELL VOLUME 91.5 fL (80-100); MEAN CORPUSCULAR HEMOGLOBIN 31.3 pg (25-34); MEAN CORPUSCULAR HGB CONC 34.3 g/dl (32-36); MEAN PLATELET VOLUME 10.9 fL (7.4-10.4); MONO % 9.4 %; MONO ABS # 0.67 K/uL (0.11-0.59); NEUT % 59.1 %; NEUT ABS # 4.19 K/uL (1.4-6.5); PLATELET COUNT 180 K/uL (130-400); RED CELL DISTRIBUTION WIDTH CV 14.5 % (11.5-14.5); RED CELL DISTRIBUTION WIDTH SD 48.8 fL (36.4-46.3); WHITE BLOOD COUNT 7.09 K/uL (4.8-10.8)
[2018-02-22 16:56] LABS: ALBUMIN 3.7 gm/dl (3.4-5.0); ALT/SGPT 24 U/L (12-78); AST/SGOT 16 U/L (15-37); BLOOD UREA NITROGEN 22 mg/dl (7-18); CALCIUM 8.8 mg/dl (8.5-10.1); CARBON DIOXIDE 27 mmol/L (21-32); CREATININE 0.91 mg/dl (0.60-1.40); GLUCOSE 121 mg/dl (70-99); POTASSIUM 3.9 mmol/L (3.5-5.1); SODIUM 137 mmol/L (136-145)
[2018-02-22 17:09] LABS: ALKALINE PHOSPHATASE 83 U/L (45-117); TOTAL PROTEIN 7.6 gm/dl (6.4-8.2)
== END | disposition home or self-care (01) ==
LOC: C.LAB1850 15:28
PROVIDERS: ATTEND Internal Medicine Pulmonary Disease
DX: J44.9 Chronic obstructive pulmonary disease, unspecified (principal)

== ENCOUNTER → 2018-03-14 | Outpatient (CLI) | payer OTHER, MEDICARE ==
--- NOTE | 2018-03-14 13:00 | DIAGNOSTIC IMAGING REPORT ---
(CHEST) THORAX WITHOUT CLINICAL HISTORY: J44.9 COPD (chronic obstructive pulmonary disease)[id number] SHORTNESS OF BREATH COMPARISON STUDY: Chest x-ray dated 03/16/2017 CT DOSE: 719.51 mGy.cm TECHNIQUE: CT of the thorax was performed from the thoracic inlet to the lung bases. Images are reviewed in the axial, sagittal, and coronal planes. IV contrast was not administered for this examination. A dose lowering technique was utilized adhering to the principles of ALARA. FINDINGS: Thyroid: There is a multinodular thyroid gland. Thoracic aorta: Atheromatous calcifications are visualized. There is no evidence of thoracic aortic aneurysm. Heart: There are coronary artery calcifications. There is no significant pericardial effusion Lungs and pleural spaces: There are no pleural effusions. There is no focal pulmonary consolidation. There are multiple apical blebs. There is a 3 cm multi septated left lower lobe lung cyst. This is at the level of a skin defect and rib defect. This may relate to prior surgery. Mediastinum: There is no mediastinal lymphadenopathy. Zo: There is no evidence of pathologic hilar adenopathy given the limitations of a noncontrast study. Axilla: Clear. Upper abdomen: There are bilateral renal cysts. There is an indeterminate 28 mm hyperdense upper pole right renal lesion. This remain similar in size to a prior April 2017 CT scan. Skeletal structures: There are no lytic or blastic osseous lesions. IMPRESSION: 1. Stable 3 cm septated cystic focus within the left lower lobe. 2. Apical blebs 3. No evidence of focal pulmonary consolidation 4. No evidence of pathologic adenopathy 5. Stable indeterminate 28 mm hyperdense upper pole right renal lesion Electronically signed by: George Ornelas M.D. 03/14/2018 12:59 PM Dictated Date/Time: 03/14/2018 12:47 PM
== END | disposition home or self-care (01) ==
LOC: C.CTS 12:31
PROVIDERS: ATTEND Internal Medicine Pulmonary Disease
DX: J44.9 Chronic obstructive pulmonary disease, unspecified (principal); R91.8 Other nonspecific abnormal finding of lung field; N28.9 Disorder of kidney and ureter, unspecified

== ENCOUNTER 2019-11-13 08:43 | Inpatient (IN) ==
--- NOTE | 2019-11-13 11:01 | History & Physical Report ---
Date of Service November 13, 2019 Assessment & Plan (1) Atrial fibrillation: Direct admit to PCU on telemetry for paroxysmal persistent atrial fibrillation. Chest x-ray PA/lateral pending. CBC CMP, BNP, troponin, magnesium, TSH EKGsurveillance pending. EKG 1 hour after starting sotalol x2. Monitor closely QT interval. If prolonged for more than 15% in comparison to previous one hold sotalol and discuss with cardiology Dr. Collins. Check daily labs. Fasting lipid panel pending in a.m. Metoprolol succinate 50 mg twice daily decreased to 25 mg twice daily per recommendations of Dr. Collins. Started sotalol 120 mg twice daily as per remote sensing surveyor recommendations. Stopped flecainide 50 mg twice daily. Consult cardiology DVT prophylaxis Xarelto 20mg p.o. every afternoon Full code Present on Admission?: Yes (2) Benign prostatic hyperplasia: Stable, but chronic condition .Continue alprostadil 500 MCG's intraurethral suppositories daily as needed. Present on Admission?: Yes (3) COPD (chronic obstructive pulmonary disease): Stable, chronic condition. Continue mometasone 220 MCG's 2 puffs twice daily, albuterol sulfate 90 MCG's inhalation every 6 hours as needed, albuterol sulfate 2.5 mg / 3 mL solution for nebulization every 4 hours as needed. Present on Admission?: Yes (4) Hypertension: Continue monitoring every 4 hours. Decreased metoprolol succinate to 25 mg p.o. twice daily since we are starting sotalol 120 mg p.o. twice daily. Will discontinue flecainide 50 mg p.o. every 12. Present on Admission?: Yes (5) Colorectal cancer: Stable. In remission Present on Admission?: Yes (6) Obesity: BMI of 28.7. Patient advised to try to lose weight with decreased carbohydrate intake and exercises. Recommended balanced diet. Present on Admission?: Yes (7) Hyperlipidemia: Fasting lipid panel pending. Continue simvastatin 20 mg p.o. every afternoon. Present on Admission?: Yes History of Present Illness Chief Complaint: Paroxysmal atrial fibrillation Primary Care Provider: Jeni Ferrell MD Patient is a 84 years old male with past medical history of HTN, hyperlipidemia ,diabetes mellitus type 2, COPD, degenerative joint disease of the shoulder, history of colorectal cancer, history of meningioma, tachycardia-bradycardia syndrome, paroxysmal atrial fibrillation on Xarelto who was sent by his remote sensing surveyor Dr. Costa Collins to the PCU for start up of sotalol and possibly cardioversion in 3 days. Patient has a [employer] pacemaker. On October 04, 2019 it was reported that the right ventricular lead exhibited under sensing. The lead remains in use. No patient complications have been reported as result of this event. This was reported to Dr. Payne. Patient reports being at his usual health and states that he has problems with insomnia and is started with atrial fibrillation's.he also reports feeling tired and increased shortness of breath at rest. Patient denies fever, chills, chest pain, lightheadedness, dizziness, presyncope, syncope, chest heaviness, chest pressure, abdominal pain, frequency, urgency. Patient is a and [facility]. Labs are pending, chest x-ray pending. Allergies Allergy/AdvReac Type Severity Reaction Status Date / Time codeine Allergy Mild N/V Verified 10/02/19 11:07 naproxen AdvReac Mild GI UPSET Verified 10/02/19 11:07 zolpidem AdvReac Mild "WEIRD Verified 10/02/19 11:07 DREAMS" Home Medications Home Medications Medication Instructions Recorded Confirmed Type temazepam 30 mg PO HS PRN 08/19/18 10/02/19 History alprostadil 500 mcg intra-urethral 500 mcg UR DAILY PRN #6 ea 06/12/19 10/02/19 Rx suppository metoprolol succinate 50 mg 50 mg PO BID tab 08/18/19 10/02/19 History tablet,extended release 24 hr mometasone 220 mcg/actuation(120 2 puffs INHALATION BID #1 ea 08/18/19 10/02/19 History doses)breath activated powder inhaler flecainide 50 mg PO Q12H 09/29/19 10/02/19 History rivaroxaban 20 mg PO QPM 09/29/19 10/02/19 History simvastatin 20 mg PO QPM 09/29/19 10/02/19 History albuterol sulfate 2.5 mg/3 mL 2.5 mg INHALATION Q4H PRN #1 ml 10/02/19 10/02/19 History (0.083 %) solution for nebulization albuterol sulfate 90 mcg/actuation 2 puffs INH Q6H PRN #18 gm 10/02/19 10/02/19 Rx aerosol inhaler 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 PACER CHECK 05/26/18 Renal cyst Surgical History History of bilateral cataract extraction History of cardiac cath History of cardiac radiofrequency ablation 2016 History of carpal tunnel release B/L History of colectomy 2009 History of colonoscopy History of cystoscopy History of lithotripsy LITHOTRIPSY/ESWL History of permanent cardiac pacemaker placement 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 History of tonsillectomy History of tooth extraction History of total shoulder replacement RIGHT Family History Mother Family history of diabetes mellitus Social History Preferred Language: Maltese Communication Ability: Effective Visual Impairment: Limited Naval Gunfire Spotter Required: No Beliefs That Will Affect Care: None Current Living Situation: Spouse Other Information That Helps Us Care for You: No Feels Safe at Home: Yes Safety Concerns: Feels Safe At This Time Smoking Status: Former smoker Tobacco Type: cigarettes ; Smoking End Date: 25 years ago ; Second Hand Exposure: No ; Hx Alcohol Use: Yes Alcohol type: wine Hx Substance Use: No Review of Systems Review of Systems: All systems reviewed & are unremarkable except as noted in HPI & below Physical Exam Constitutional: WD/WN, vitals as above well developed and + obese Eyes: PERRL, conjunctivae normal, anicteric sclerae ENMT: external ear and nose normal, oropharynx normal Neck: trachea midline, no thyromegaly Respiratory: normal respiratory effort, lungs clear to auscultation Cardiovascular: Rate/Rhythm: + irregularly irregular Vessels: dorsalis pedis pulses present Gastrointestinal (Abdomen): normal bowel sounds, soft, nontender, no hepatosplenomegaly Musculoskeletal: no cyanosis or clubbing, extremities motor strength 5/5 Skin: no rashes, warm and dry Neurologic: patellar DTR's 2+ bilat, sensation intact Psychiatric: A+Ox3, euthymic affect Lymphatic: no cervical or axillary lymphadenopathy Results & Data Vital Signs (Past 12 Hours) Vital Signs Temp Pulse Resp BP Pulse Ox 11/13/19 10:15 36.3 C L 80 20 157/89 H 94 Code Status & VTE Plan Code Status Full code VTE Prophylaxis Plan VTE Prophylaxis will be ordered: Yes PG Care Time/CCT Total # of Minutes Spent Total Time Spent with Patient: Total time spent is greater than 50% in coordination of care (as documented) at patient's floor/unit and/or counseling patient:
[2019-11-13] MEDS ORDERED: ONDANSETRON INJ 2 MG/ML 2 ML VIAL IV PRN (11:10)
[2019-11-13] MEDS ORDERED: SOTALOL HCL 80 MG TAB PO ONE (11:10)
[2019-11-13] MEDS ORDERED: ALBUTEROL 0.083% NEBU SOLN 3 ML VIAL INH PRN (11:10)
[2019-11-13] MEDS ORDERED: ALUMINUM/MAGNESIUM SUSP 30 ML UDC PO PRN (11:10)
[2019-11-13] MEDS ORDERED: ALBUTEROL HFA 8 GM INHALER INH PRN (11:10)
[2019-11-13] MEDS ORDERED: GLUCAGON FOR INJ 1 MG VIAL SQ PRN (11:10)
[2019-11-13] MEDS ORDERED: ACETAMINOPHEN 325 MG TAB PO PRN (11:10)
[2019-11-13] MEDS ORDERED: GLUCOSE 10 TABS/TUBE PO PRN (11:10)
[2019-11-13] MEDS ORDERED: ALPROSTADIL 500 MCG UR PRN (11:10)
[2019-11-13] MEDS ORDERED: GLUCOSE 40% GEL 15 GM TUBE PO PRN (11:10)
[2019-11-13] MEDS ORDERED: POLYETHYLENE (MIRALAX) 17 GM PACK PO PRN (11:10)
[2019-11-13] MEDS ORDERED: MAGNESIUM HYDROXIDE SUSP 30 ML UDC PO PRN (11:10)
[2019-11-13] MEDS ORDERED: CARBOHYDRATES FOR HYPOGLYCEMIA PO PRN (11:10)
[2019-11-13] MEDS ORDERED: DEXTROSE 50% 50 ML SYRINGE IV PRN (11:10)
[2019-11-13] MEDS ORDERED: PHARMACY GLYCEMIC MGMT CONSULT PRN (11:16)
[2019-11-13 11:30] LABS: Basophils # (auto) 0.03 K/uL (0-0.2); Basophils % (auto) 0.5 %; Eosinophils # (auto) 0.14 K/uL (0-0.5); Eosinophils % (auto) 2.3 %; Hematocrit (blood only) 42.7 % (42-52); Hemoglobin 14.7 g/dL (14.0-18.0); Immature Granulocytes # (auto) 0.01 K/uL (0.00-0.02); Immature Granulocytes % (auto) 0.2 %; Lymphocytes # (auto) 1.27 K/uL (1.2-3.4); Lymphocytes % (auto) 20.7 %; Mean Corpuscular Hemoglobin 31.7 pg (25-34); Mean Corpuscular Volume 92.2 fL (80-100); Mean Platelet Volume 10.5 fL (7.4-10.4); Monocytes # (auto) 0.54 K/uL (0.11-0.59); Monocytes % (auto) 8.8 %; Neutrophils # (auto) 4.15 K/uL (1.4-6.5); Neutrophils % (auto) 67.5 %; Platelet Count 152 K/uL (130-400); RDW Coefficient of Variation 14.1 % (11.5-14.5); RDW Standard Deviation 47.7 fL (36.4-46.3); Red Blood Count 4.63 M/uL (4.7-6.1); White Blood Count 6.14 K/uL (4.8-10.8)
[2019-11-13 11:31] LABS: Mean Corpuscular Hgb Conc 34.4 g/dL (32-36)
[2019-11-13 11:48] LABS: Alanine Aminotransferase 43 U/L (12-78); Albumin Level 3.2 gm/dl (3.4-5.0); Aspartate Aminotransferase 16 U/L (15-37); BUN Creatinine Ratio 25.9 (10-20); Blood Urea Nitrogen 22 mg/dl (7-18); Calcium 8.7 mg/dl (8.5-10.1); Carbon Dioxide 26 mmol/L (21-32); Chloride 107 mmol/L (98-107); Creatinine Clr Calc Pharmacy 74.6 ml/min; Est GFR (African American) 92.3; Est GFR (Non-African American) 79.6; Glucose 158 mg/dl (70-99); Potassium 3.9 mmol/L (3.5-5.1); Sodium 138 mmol/L (136-145)
[2019-11-13 11:58] LABS: Albumin Globulin Ratio 0.9 (0.9-2); Alkaline Phosphatase 80 U/L (45-117); Bilirubin,Total 0.7 mg/dl (0.2-1); Globulin 3.7 gm/dl (2.5-4.0); NT Pro B Type Natriuretic Pept 1184 pg/ml (0-1800); Total Protein 6.9 gm/dl (6.4-8.2); Troponin I < 0.015 ng/ml (0-0.045)
--- NOTE | 2019-11-13 12:04 | XRay Report ---
XR chest 2V PA/lateral CLINICAL HISTORY: paroxysmal atrial fibrillation COMPARISON STUDY: 03/12/2017 FINDINGS: The heart is borderline enlarged. There is a left subclavian dual-chamber central venous pa cemaker present. There is no lobar consolidation. There is mild basilar interstitial thickening. Ther e is no overt failure. There are no significant pleural effusions.[ IMPRESSION: 1. Mild basilar interstitial thickening 2. No evidence of lobar consolidation. 3. No evidence of failure ACT 112: Negative or not required by law. Electronically signed by: George Ornelas M.D. 11/13/2019 12:03 PM
--- NOTE | 2019-11-13 12:14 | Pharmacy Report ---
Glycemic Control Consultation - Date of Service November 13, 2019 - Scope Scope: Glycemic Pharmacist consulted by Dr Casillas on 11/13/2019 for glycemic control and to write orders per [facility] inpatient glycemic control protocol - Objective Weight: 93.4 kg Accuchecks BSG (last 24hrs): 11/13/19 11/13/19 11:16 11:23 Glucose 158 H POC Glucose 159 H Laboratory Data (last 24hrs): 11/13/19 11:16 Potassium 3.9 Carbon Dioxide 26 Anion Gap 5.0 Creatinine 0.86 Est Cr Clr Drug Dosing 74.6 - Recent Pertinent Medications Outpatient Anti-diabetic Regimen: * N/A Risk Factors for Insulin Resistance: * Diet: T2DM - Assessment & Plan Assessment & Plan: ASSESSMENT: * Mr Cornejo is an 84 y/o M with a PMH of T2DM on no medications. HbA1C unknown at this time. Ordered for tomorrow. Admission blood sugar was 159 mg/dL. * For Lantus placed scale for tonight with weight-based dosing. * Start Novolog weight-based stress of 2. * Will follow. PLAN FOR INPATIENT GLYCEMIC CONTROL: * Basal insulin * Lantus 0-15 units SQ HS (hold if blood sugar under 140 mg/dL; 10 units if blood sugar 140-180 mg/dL; 15 units if blood sugar over 180 mg/dL) * Bolus insulin * NovoLog per scale ACHS or Q6hrs while NPO * Goal Range: Low 110 mg/dL - High 140 mg/dL * Correction Factor: 30 mg/dL/unit * Nutritional / Prandial insulin per carb ratio of 1 unit per 9 grams CHO consumed * Please note that the plan above was derived based on current level of insulin resistance and hospital stress. These recommendations are appropriate for inpatient admission only. Plan of care upon discharge will need to be reassessed to avoid potential outpatient hypo/hyperglycemia. Thank you.
[2019-11-13] MEDS: INSULIN ASPART 100 UNITS/ML 3 ML PEN SC SCH ×3 (12:17→21:11)
--- NOTE | 2019-11-13 15:37 | Electrocardiogram Report ---
Test Reason : Blood Pressure : / mmHG Vent. Rate : 085 BPM Atrial Rate : 227 BPM P-R Int : 000 ms QRS Dur : 102 ms QT Int : 392 ms P-R-T Axes : 000 104 -43 degrees QTc Int : 466 ms Atrial fibrillation Rightward axis Septal infarct , age undetermined T wave abnormality, consider inferior ischemia Abnormal ECG When compared with ECG of 03-OCT-2019 07:50, Atrial fibrillation has replaced Electronic atrial pacemaker Non-specific change in ST segment in Inferior leads Confirmed by Lorenzo Jones ([id number]) on 11/13/2019 3:36:52 PM Referred By: Zeke Fraga Confirmed By:Lorenzo Jones
--- NOTE | 2019-11-13 15:41 | Electrocardiogram Report ---
Test Reason : Blood Pressure : / mmHG Vent. Rate : 076 BPM Atrial Rate : 060 BPM P-R Int : 000 ms QRS Dur : 092 ms QT Int : 392 ms P-R-T Axes : 000 224 -55 degrees QTc Int : 441 ms Atrial fibrillation with frequent ventricular-paced complexes Indeterminate axis Septal infarct , age undetermined Abnormal ECG When compared with ECG of 13-NOV-2019 11:29, (unconfirmed) Electronic ventricular pacemaker now present Confirmed by Lorenzo Jnoes ([id number]) on 11/13/2019 3:40:44 PM Referred By: eZke Fraga Confirmed By:Lorenzo Jones
[2019-11-13] MEDS ORDERED: INSULIN GLARGINE SOLOSTAR 100 UNITS/ML 3 ML PEN SC SCH (21:00)
[2019-11-13] MEDS ORDERED: MOMETASONE FUROATE 14 PUFF/1 INHALER INH SCH (21:00)
[2019-11-13] MEDS: METOPROLOL SUCC 25MG EXT REL TAB PO SCH (21:10)
[2019-11-13] MEDS: SIMVASTATIN 20 MG TAB PO SCH (21:10)
[2019-11-13] MEDS: SOTALOL HCL 80 MG TAB PO SCH (21:10)
[2019-11-13] MEDS: RIVAROXABAN 20 MG TAB PO SCH (21:10)
[2019-11-13] MEDS: MOMETASONE FUROATE 14 PUFF/1 INHALER INH SCH (21:11)
[2019-11-13] MEDS: TEMAZEPAM 15 MG CAPSULE PO PRN (22:27)
[2019-11-14] MEDS ORDERED: Nursing to Pharmacy Communication ONE (05:50)
[2019-11-14 07:24] LABS: Basophils # (auto) 0.02 K/uL (0-0.2); Basophils % (auto) 0.4 %; Eosinophils # (auto) 0.14 K/uL (0-0.5); Eosinophils % (auto) 2.5 %; Hematocrit (blood only) 42.3 % (42-52); Hemoglobin 14.3 g/dL (14.0-18.0); Immature Granulocytes # (auto) 0.01 K/uL (0.00-0.02); Immature Granulocytes % (auto) 0.2 %; Lymphocytes # (auto) 1.68 K/uL (1.2-3.4); Lymphocytes % (auto) 30.2 %; Mean Corpuscular Hemoglobin 31.1 pg (25-34); Mean Corpuscular Hgb Conc 33.8 g/dL (32-36); Mean Platelet Volume 10.6 fL (7.4-10.4); Monocytes # (auto) 0.48 K/uL (0.11-0.59); Monocytes % (auto) 8.6 %; Neutrophils # (auto) 3.23 K/uL (1.4-6.5); Neutrophils % (auto) 58.1 %; Platelet Count 151 K/uL (130-400); RDW Coefficient of Variation 14.3 % (11.5-14.5); RDW Standard Deviation 48.3 fL (36.4-46.3); White Blood Count 5.56 K/uL (4.8-10.8)
[2019-11-14] MEDS: METOPROLOL SUCC 25MG EXT REL TAB PO SCH ×2 (07:45→20:59)
[2019-11-14] MEDS: SOTALOL HCL 80 MG TAB PO SCH ×2 (07:46→20:58)
[2019-11-14] MEDS: MOMETASONE FUROATE 14 PUFF/1 INHALER INH SCH ×2 (07:46→20:58)
[2019-11-14] MEDS: INSULIN ASPART 100 UNITS/ML 3 ML PEN SC SCH ×4 (07:46→20:59)
[2019-11-14 08:02] LABS: BUN Creatinine Ratio 25.7 (10-20); Calcium 8.9 mg/dl (8.5-10.1); Creatinine Clr Calc Pharmacy 72.9 ml/min; Est GFR (African American) 91.4; Est GFR (Non-African American) 78.9; Potassium 3.9 mmol/L (3.5-5.1)
[2019-11-14 08:05] LABS: Albumin Globulin Ratio 0.9 (0.9-2); Bilirubin,Total 0.4 mg/dl (0.2-1); Globulin 3.5 gm/dl (2.5-4.0); Total Protein 6.5 gm/dl (6.4-8.2)
[2019-11-14 08:08] LABS: Estimated Average Glucose 186 mg/dl; Hemoglobin A1C 8.1 % (4.5-5.6)
--- NOTE | 2019-11-14 09:36 | Cardiology Consultation ---
Date of Consultation Patient was admitted for sotalol loading with planned cardioversion tomorrow November 14, 2019. He is feeling well he denies any chest pain or chest pressure he does have shortness of breath with activity. He denies any palpitations or fluttering. He denies any lightheadedness or dizziness. He denies any chest tightness or chest pressure bleeding bruising dark stools black stools fevers chills or sweats.As expected he is rather bored here today. He denies any lower extremity edema or symptoms of claudication. He is tolerating his current medical regimen and his blood pressures have been very well controlled here in the hospital. The rest of a complete review of systems otherwise negative November 14, 2019 History of Present Illness Attending Physician: Zeke Fraga DO Allergies Allergy/AdvReac Type Severity Reaction Status Date / Time codeine Allergy Mild N/V Verified 10/02/19 11:07 naproxen AdvReac Mild GI UPSET Verified 10/02/19 11:07 zolpidem AdvReac Mild "WEIRD Verified 10/02/19 11:07 DREAMS" Home Medications Home Medications Medication Instructions Recorded Confirmed Type temazepam 30 mg PO HS PRN 08/19/18 10/02/19 History alprostadil 500 mcg intra-urethral 500 mcg UR DAILY PRN #6 ea 06/12/19 10/02/19 Rx suppository metoprolol succinate 50 mg 50 mg PO BID tab 08/18/19 10/02/19 History tablet,extended release 24 hr mometasone 2 puffs INHALATION BID #1 ea 08/18/19 10/02/19 History flecainide 50 mg PO Q12H 09/29/19 10/02/19 History rivaroxaban 20 mg PO QPM 09/29/19 10/02/19 History simvastatin 20 mg PO QPM 09/29/19 10/02/19 History albuterol sulfate 2.5 mg INHALATION Q4H PRN #1 ml 10/02/19 10/02/19 History albuterol sulfate 90 mcg/actuation 2 puffs INH Q6H PRN #18 gm 10/02/19 10/02/19 Rx aerosol inhaler Patient History Medical History Atrial fibrillation BPH (benign prostatic hyperplasia) COPD (chronic obstructive pulmonary disease) Diabetes mellitus, type 2 NIDDM History of colorectal cancer NO CHEMO/RADIATION HTN (hypertension) Hyperlipidemia Nephrolithiasis Obesity Pacemaker MEDTRONIC 2/2 TACHYBRADY; 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 PACER CHECK 05/26/18 Renal cyst Surgical History History of bilateral cataract extraction History of cardiac cath History of cardiac radiofrequency ablation 2016 History of carpal tunnel release B/L History of colectomy 2010 History of colonoscopy History of cystoscopy History of lithotripsy LITHOTRIPSY/ESWL History of permanent cardiac pacemaker placement 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 22 SINUS NODE DYSFUNCTION History of tonsillectomy History of tooth extraction History of total shoulder replacement RIGHT Family History Mother Family history of diabetes mellitus Social History Preferred Language: Tajik Communication Ability: Effective Visual Impairment: Limited Draw End Hand Required: No Beliefs That Will Affect Care: None Current Living Situation: Spouse Other Information That Helps Us Care for You: No Feels Safe at Home: Yes Safety Concerns: Feels Safe At This Time Smoking Status: Former smoker Tobacco Type: cigarettes ; Smoking End Date: 25 years ago ; Second Hand Exposure: No ; Hx Alcohol Use: Yes Alcohol type: wine Hx Substance Use: No Results & Data Vital Signs (Past 12 Hours) Vital Signs Temp Pulse Pulse Resp BP Pulse Ox 11/14/19 08:00 37.2 C 83 70 18 121/69 99 11/14/19 03:23 37.3 C 74 18 114/52 L 95 11/14/19 01:56 83 11/14/19 00:03 36.4 C L 71 18 91/51 L 94 He is awake alert oriented x3 he is in no acute distress. HEENT: 2+ carotid upstrokes no carotid bruits jugular venous pressure appeared normal his sclera is anicteric his hearing is mildly diminished Lungs: Clear to auscultation bilaterally no rales rhonchi or wheezing Heart irregular rate and rhythm no appreciable murmurs rubs or gallops Abdomen soft tender nondistended positive bowel sounds Psychiatric his affect appeared appropriate Extremities:No clubbing cyanosis or edema Impressions: 1. Symptomatic paroxysmal atrial fibrillation status post cardioversion maintaining sinus rhythm for only 48 hours. 2. Admission for sotalol loading and QT monitoring 3. History of atrial flutter status post flutter ablation 4. No evidence of epicardial coronary artery disease 5. Status post dual-chamber pacemaker for tachybradycardia syndrome 6. Chronic anticoagulation with a chads 2 Vasc score of 4 We have been monitoring his EKGs. His QT interval has prolonged Slightlyon his third EKG compared to the first EKG. His first EKG the QTC was approximately 466 ms. He is currently 488 ms. A 15% increase in his QTC is acceptable With sotalol loading. We will have to continue to monitor this closely. He will receive his fourth dose of sotalol this evening. The plan is for cardioversion tomorrow with hopeful muslim of sinus rhythm. He will need to be n.p.o. after midnight. We will also need to reduce his insulin by half tonight in anticipation of his cardioversion. He will remain on his anticoagulation. We will reassess his QT interval both tonight after his fourth dose and tomorrow after his planned cardioversion.
--- NOTE | 2019-11-14 10:19 | Electrocardiogram Report ---
Test Reason : Blood Pressure : / mmHG Vent. Rate : 075 BPM Atrial Rate : 178 BPM P-R Int : 000 ms QRS Dur : 098 ms QT Int : 414 ms P-R-T Axes : 000 261 -42 degrees QTc Int : 462 ms Atrial fibrillation with occasional ventricular-paced complexes Indeterminate axis Septal infarct , age undetermined T wave abnormality, consider inferior ischemia Abnormal ECG When compared with ECG of 13-NOV-2019 13:03, No significant change was found Confirmed by Lorenzo Jones ([id number]) on 11/14/2019 10:19:09 AM Referred By: Zkee Fraga Confirmed By:Lorenzo Jones
--- NOTE | 2019-11-14 12:43 | Pharmacy Report ---
Glycemic Control Progress Note - Date of Service November 14, 2019 - Scope Glycemic Pharmacist consulted for glycemic control to write orders per [facility] inpatient glycemic control protocol. - Objective Accuchecks BSG(last 24 hours):: 11/13/19 11/13/19 11/14/19 16:15 20:52 07:04 Glucose 154 H POC Glucose 101 H 118 H 11/14/19 11/14/19 07:28 11:26 Glucose POC Glucose 158 H 159 H HbA1c:: Hemoglobin A1c 8.1 % (4.5-5.6) H 11/14/19 07:05 - Recent Pertinent Medications The patient is currently receiving: * Basal insulin: Lantus 0-15 units every 24 hours * Correctional Insulin: Novolog Correction per scale ACHS Goal Range: Low 110 mg/dL - High 140 mg/dL Correction Factor: 30 mg/dL/unit * Prandial insulin: Per carb ratio of 1 unit per 9 grams CHO consumed - Outpatient Anti-Diabetic Meds diet controlled - Assessment & Plan ASSESSMENT: * See progress note from 11/13/2019 for more background info, in short: * Pt receiving SQ basal bolus insulin regimen for hyperglycemia secondary to baseline DM (outpatient regimen on hold). * Patient is currently receiving an average of 12 units of insulin per day * 0 units of basal insulin * 12 units of prandial/correctional insulin * BSGs ranging 101 - 159 mg/dl over the past 24hrs * Changes needed to insulin regimen: * AM Fasting BSG = 158 mg/dl. This is in goal range for patient based on inpatient targets and co-morbidities. Therefore Basal insulin will not be ordered. D/c pending Lantus since patient will be NPO tomorrow. * Post-prandial BSGs are in range therefore no changes needed to CF/CR. * Total daily dose = <20 units. PLAN FOR INPATIENT GLYCEMIC CONTROL: * D/c Lantus * Continuing correction factor of 30 mg/dl/unit * Continuing carb ratio of 1 unit per 9 grams CHO consumed * Continuing goal range of Low 110 mg/dL - High 140 mg/dL RECOMMENDATIONS FOR DISCHARGE: * A1c is between 8% and 10% consider dual combination therapy * Metformin + additional agent listed below. (B12 supplementation may be necessary with ferry terminal supervisor metformin) * Recommend starting: Metformin XR 500mg PO daily with evening meal. Typically the XR formulation of metformin is better tolerated than the immediate release formulation. Continue to titrate metformin dosing upwards as recommended. Dosage increases should be made in increments of 500 mg weekly, up to 2,000 mg/day PO, given in divided doses. Doses above 2000 mg/day may be better tolerated if divided and given 3 times per day with meals. Max: 2,550 mg/day PO, in divided doses * Consider one of the following due to risk of ASCVD * GLP1 RA: Decreases major adverse cardiovascular events, high efficacy, low hypo risk, weight loss. They can have significant GI side effects (titrate low and slow) and risk of thyroid tumors, high cost * strongest evidence for reducing CVD events = liraglutide > semaglutide > exenatide extended release * SGLT2i: Decreases major adverse cardiovascular events, intermediate efficacy, low hypo risk, weight loss. They can have the side effects of: /dehydration and risk of amputation (canagliflozin) side effects, high cost * strongest evidence for reducing CVD events = empagliflozin or canagliflozin. Choice will be made on eGFR recommendations * Empagliflozin (Jardiance), canagliflozin (Invokana), dapagliflozin (Farxiga): do not use if eGFR is less than 45 ml/min * Ertugliflozin (Steglatro): do not use if eGFR is less than 60 ml/min * Please note that the plan above was derived based on current level of insulin resistance and hospital stress. These recommendations are appropriate for inpatient admission only. Plan of care upon discharge will need to be reassessed to avoid potential outpatient hypo/hyperglycemia. Thank you.
--- NOTE | 2019-11-14 13:02 | Electrocardiogram Report ---
Test Reason : Blood Pressure : / mmHG Vent. Rate : 087 BPM Atrial Rate : 076 BPM P-R Int : 000 ms QRS Dur : 094 ms QT Int : 400 ms P-R-T Axes : 000 -77 -46 degrees QTc Int : 481 ms Atrial fibrillation with premature ventricular or aberrantly conducted complexes Indeterminate axis Septal infarct , age undetermined T wave abnormality, consider inferior ischemia Abnormal ECG When compared with ECG of 13-NOV-2019 22:18, (unconfirmed) Electronic ventricular pacemaker no longer present Confirmed by Lorenzo Jones ([id number]) on 11/14/2019 10:21:41 AM Also confirmed by Lorenzo Jones ([id number]), editor greeting card Breana Dhaliwal ([id number]) on 11/14/2019 1:01:33 PM Referred By: Zeke Fraga Confirmed By:oLrenzo Jones
--- NOTE | 2019-11-14 13:51 | Hospitalist Progress Note ---
Date of Service November 14, 2019 Assessment & Plan (1) Atrial fibrillation: Direct admit to PCU on telemetry for paroxysmal persistent atrial fibrillation. tolerating Sotalol 120mg BID, QTc is acceptable plan for cardioversion tomorrow with Dr. Collins continue Xarelto for full anticoagulation Metoprolol succinate 25 mg twice daily per recommendations of Dr. Collins. (2) Benign prostatic hyperplasia: Stable, but chronic condition .Continue alprostadil 500 MCG's intraurethral suppositories daily as needed. (3) COPD (chronic obstructive pulmonary disease): Stable, chronic condition. Continue mometasone 220 MCG's 2 puffs twice daily, albuterol sulfate 90 MCG's inhalation every 6 hours as needed, albuterol sulfate 2.5 mg / 3 mL solution for nebulization every 4 hours as needed. lungs clear, no wheezing, no distress (4) Hypertension: BP acceptable at 119/71 on Toprol 25mg (5) Colorectal cancer: Stable. In remission (6) Obesity: BMI of 28.7. Patient advised to try to lose weight with decreased carbohydrate intake and exercises. Recommended balanced diet. (7) Hyperlipidemia: continue Zocor Subjective patient doing great, no issues reviewed EKG, QT is acceptable on Sotalol discussed with Dr. Collins, plan for cardioversion tomorrow now that Sotalol loading done patient eating well, moving bowels, making urine no chest pain/pressure, no dyspnea, no cough CBC and CMP stable Review of Systems Review of Systems: All systems reviewed & are unremarkable except as noted in HPI & below Physical Exam Constitutional: WD/WN, vitals as above Eyes: PERRL, conjunctivae normal, anicteric sclerae ENMT: external ear and nose normal, oropharynx normal Neck: trachea midline, no thyromegaly Respiratory: normal respiratory effort, lungs clear to auscultation Cardiovascular: Rate/Rhythm: regular rate and + irregularly irregular Heart Sounds: normal S1 and normal S2; no murmur Vessels: no JVD Extremities: normal capillary refill; no edema Gastrointestinal (Abdomen): normal bowel sounds, soft, nontender, no hepatosplenomegaly Musculoskeletal: no cyanosis or clubbing, extremities motor strength 5/5 Skin: no rashes, warm and dry Neurologic: patellar DTR's 2+ bilat, sensation intact and PERRL, EOMI, accommodation nl, no face palsy, no dysarthria Psychiatric: A+Ox3, euthymic affect Lymphatic: no cervical or axillary lymphadenopathy Results & Data Vital Signs (Past 12 Hours) Vital Signs Temp Pulse Pulse Resp BP Pulse Ox 11/14/19 11:50 37.1 C 69 18 116/64 99 11/14/19 08:00 37.2 C 83 70 18 121/69 99 11/14/19 03:23 37.3 C 74 18 114/52 L 95 11/14/19 01:56 83 Laboratory Results Laboratory Results - last 24 hr 11/13/19 11/13/19 11/14/19 16:15 20:52 07:04 WBC RBC Hgb Hct MCV MCH MCHC RDW Std Deviation RDW Coeff of Aracely Plt Count MPV Immature Gran % (Auto) Neut % (Auto) Lymph % (Auto) [place] % (Auto) Eos % (Auto) Baso % (Auto) Immature Gran # (Auto) Neut # (Auto) Lymph # (Auto) [place] # (Auto) Eos # (Auto) Baso # (Auto) Sodium 139 Potassium 3.9 Chloride 107 Carbon Dioxide 26 Anion Gap 6.0 BUN 23 H Creatinine 0.88 Est Cr Clr Drug Dosing 72.9 Est GFR ( Amer) 91.4 Est GFR (Non-Af Amer) 78.9 BUN/Creatinine Ratio 25.7 H Glucose 154 H POC Glucose 101 H 118 H Estimat Average Glucose Hemoglobin A1c Calcium 8.9 Total Bilirubin 0.4 AST 16 ALT 40 Alkaline Phosphatase 80 Total Protein 6.5 Albumin 3.0 L Globulin 3.5 Albumin/Globulin Ratio 0.9 Triglycerides 77 Cholesterol 115 LDL Cholesterol, Calc 52 VLDL Cholesterol, Calc 15 HDL Cholesterol 48 Cholesterol/HDL Ratio 2 11/14/19 11/14/19 11/14/19 07:05 07:05 07:28 WBC 5.56 RBC 4.60 L Hgb 14.3 Hct 42.3 MCV 92.0 MCH 31.1 MCHC 33.8 RDW Std Deviation 48.3 H RDW Coeff of Aracely 14.3 Plt Count 151 MPV 10.6 H Immature Gran % (Auto) 0.2 Neut % (Auto) 58.1 Lymph % (Auto) 30.2 [place] % (Auto) 8.6 Eos % (Auto) 2.5 Baso % (Auto) 0.4 Immature Gran # (Auto) 0.01 Neut # (Auto) 3.23 Lymph # (Auto) 1.68 [place] # (Auto) 0.48 Eos # (Auto) 0.14 Baso # (Auto) 0.02 Sodium Potassium Chloride Carbon Dioxide Anion Gap BUN Creatinine Est Cr Clr Drug Dosing Est GFR ( Amer) Est GFR (Non-Af Amer) BUN/Creatinine Ratio Glucose POC Glucose 158 H Estimat Average Glucose 186 Hemoglobin A1c 8.1 H Calcium Total Bilirubin AST ALT Alkaline Phosphatase Total Protein Albumin Globulin Albumin/Globulin Ratio Triglycerides Cholesterol LDL Cholesterol, Calc VLDL Cholesterol, Calc HDL Cholesterol Cholesterol/HDL Ratio 11/14/19 11:26 WBC RBC Hgb Hct MCV MCH MCHC RDW Std Deviation RDW Coeff of Aracely Plt Count MPV Immature Gran % (Auto) Neut % (Auto) Lymph % (Auto) [place] % (Auto) Eos % (Auto) Baso % (Auto) Immature Gran # (Auto) Neut # (Auto) Lymph # (Auto) [place] # (Auto) Eos # (Auto) Baso # (Auto) Sodium Potassium Chloride Carbon Dioxide Anion Gap BUN Creatinine Est Cr Clr Drug Dosing Est GFR ( Amer) Est GFR (Non-Af Amer) BUN/Creatinine Ratio Glucose POC Glucose 159 H Estimat Average Glucose Hemoglobin A1c Calcium Total Bilirubin AST ALT Alkaline Phosphatase Total Protein Albumin Globulin Albumin/Globulin Ratio Triglycerides Cholesterol LDL Cholesterol, Calc VLDL Cholesterol, Calc HDL Cholesterol Cholesterol/HDL Ratio Medications Administered Current Inpatient Medications Acetaminophen (Tylenol) 650 mg PO Q4H PRN PRN Reason: Pain or Fever Stop: 12/13/19 11:09 Al Hydrox/Mg Hydrox/Simethicone (Maalox) 15 ml PO Q4H PRN PRN Reason: Dyspepsia Stop: 12/13/19 11:09 Albuterol (Ventolin 0.083% 2.5mg/3ml) 2.5 mg INH Q4H PRN PRN Reason: wheezing, SOB Stop: 12/13/19 11:09 Albuterol (Ventolin Hfa) 2 puffs INH Q6H PRN PRN Reason: shortness of breath or wheezing Stop: 12/13/19 11:09 Dextrose (Dextrose 50%) 25 - 50 ml IV UD PRN; Protocol PRN Reason: Hypoglycemia Protocol Stop: 12/13/19 11:09 Glucagon (Glucagen) 1 mg SQ UD PRN; Protocol PRN Reason: Hypoglycemia Protocol Stop: 12/13/19 11:09 Glucose (Dex4 Glucose) 4 - 8 tabs PO UD PRN; Protocol PRN Reason: Hypoglycemia Protocol Stop: 12/13/19 11:09 Glucose (Glucose 40%) 15 - 30 gm PO UD PRN; Protocol PRN Reason: Hypoglycemia Protocol Stop: 12/13/19 11:09 Insulin Aspart (Novolog Flexpen) 0 units SC ACHS MELANI Stop: 12/13/19 11:29 Last Admin: 11/14/19 12:23 Dose: 5 units Documented by: Magnesium Hydroxide (Milk Of Magnesia) 30 ml PO Q12H PRN PRN Reason: Constipation Stop: 12/13/19 11:09 Metoprolol Succinate (Toprol Xl) [address] [facility] Stop: 12/13/19 20:59 Last Admin: 11/14/19 07:45 Dose: 25 mg Documented by: Miscellaneous (Carbohydrates For Hypoglycemia) 15 - 30 gm PO UD PRN PRN Reason: Hypoglycemia Protocol Stop: 12/13/19 11:09 Miscellaneous Information (Consult Glycemic Management Pharmacy) 1 ea N/A UD PRN; Protocol PRN Reason: Consult Stop: 12/13/19 11:15 Mometasone Furoate (Asmanex 220mcg) [address] [facility] Stop: 12/13/19 20:59 Last Admin: 11/14/19 07:46 Dose: 2 puffs Documented by: Ondansetron HCl (Zofran) 4 mg IV Q6H PRN PRN Reason: Nausea Stop: 12/13/19 11:09 Polyethylene Glycol (Miralax Powder Packet) 17 gm PO DAILY PRN PRN Reason: Constipation Stop: 12/13/19 11:09 Rivaroxaban (Xarelto) [address] [facility] Stop: 12/13/19 20:59 Last Admin: 11/13/19 21:10 Dose: 20 mg Documented by: Simvastatin (Zocor) 20 mg PO QPM MELANI Stop: 12/13/19 20:59 Last Admin: 11/13/19 21:10 Dose: 20 mg Documented by: Sotalol HCl (Betapace) [address] [facility] Stop: 12/13/19 20:59 Last Admin: 11/14/19 07:46 Dose: 120 mg Documented by: Temazepam (Restoril) 30 mg PO HS PRN PRN Reason: Sleep Stop: 12/13/19 11:09 Last Admin: 11/13/19 22:27 Dose: 30 mg Documented by: PG Care Time/CCT Total # of Minutes Spent Total Time Spent with Patient: Total time spent is greater than 50% in coordination of care (as documented) at patient's floor/unit and/or counseling patient:
[2019-11-14] MEDS: SIMVASTATIN 20 MG TAB PO SCH (21:00)
[2019-11-14] MEDS: RIVAROXABAN 20 MG TAB PO SCH (21:00)
[2019-11-14] MEDS: TEMAZEPAM 15 MG CAPSULE PO PRN (21:50)
[2019-11-15 06:58] LABS: Basophils # (auto) 0.02 K/uL (0-0.2); Basophils % (auto) 0.3 %; Eosinophils # (auto) 0.19 K/uL (0-0.5); Eosinophils % (auto) 2.9 %; Hematocrit (blood only) 43.3 % (42-52); Hemoglobin 14.7 g/dL (14.0-18.0); Immature Granulocytes # (auto) 0.02 K/uL (0.00-0.02); Immature Granulocytes % (auto) 0.3 %; Lymphocytes # (auto) 1.83 K/uL (1.2-3.4); Lymphocytes % (auto) 28.1 %; Mean Corpuscular Hemoglobin 31.3 pg (25-34); Mean Corpuscular Hgb Conc 33.9 g/dL (32-36); Mean Corpuscular Volume 92.3 fL (80-100); Mean Platelet Volume 10.8 fL (7.4-10.4); Monocytes # (auto) 0.64 K/uL (0.11-0.59); Monocytes % (auto) 9.8 %; Neutrophils # (auto) 3.81 K/uL (1.4-6.5); Neutrophils % (auto) 58.6 %; Platelet Count 149 K/uL (130-400); RDW Coefficient of Variation 14.4 % (11.5-14.5); RDW Standard Deviation 48.4 fL (36.4-46.3); Red Blood Count 4.69 M/uL (4.7-6.1); White Blood Count 6.51 K/uL (4.8-10.8)
[2019-11-15] MEDS ORDERED: LIDOCAINE HCL 2% 2 ML VIAL/AMP(20MG/ML) INFIL ONE (07:18)
[2019-11-15] MEDS ORDERED: PROPOFOL IV EMULSION 10 MG/ML 20 ML VIAL IV ONE (07:18)
--- NOTE | 2019-11-15 07:27 | Anesthesiology Consultation ---
Date of Service November 15, 2019 Assessment & Plan (1) Encounter for pre-operative examination: Chart Review Chart Review: Acceptable Risk for Surgery History Surgery Operation Date: 11/15/19 07:45 Proposed Procedures p Cardioversion State Game Protector w/Anesthesia - Costa Collins DO Height/Weight Height: 5 ft 11 in Weight: 93.3 kg Allergies Allergy/AdvReac Type Severity Reaction Status Date / Time codeine Allergy Mild N/V Verified 10/02/19 11:07 naproxen AdvReac Mild GI UPSET Verified 10/02/19 11:07 zolpidem AdvReac Mild "WEIRD Verified 10/02/19 11:07 DREAMS" Medications Home Medications Medication Instructions Recorded Confirmed Last Taken temazepam 30 mg PO HS PRN 08/19/18 10/02/19 09/06/18 21:00 alprostadil 500 mcg intra-urethral 500 mcg UR DAILY PRN #6 ea 06/12/19 10/02/19 Unknown suppository metoprolol succinate 50 mg 50 mg PO BID tab 08/18/19 10/02/19 Unknown tablet,extended release 24 hr mometasone 2 puffs INHALATION BID #1 ea 08/18/19 10/02/19 Unknown flecainide 50 mg PO Q12H 09/29/19 10/02/19 Unknown rivaroxaban 20 mg PO QPM 09/29/19 10/02/19 Unknown simvastatin 20 mg PO QPM 09/29/19 10/02/19 Unknown albuterol sulfate 2.5 mg INHALATION Q4H PRN #1 ml 10/02/19 10/02/19 Unknown albuterol sulfate 90 mcg/actuation 2 puffs INH Q6H PRN #18 gm 10/02/19 10/02/19 Unknown aerosol inhaler Active Medications Generic Name Dose Route Start Last Admin Trade Name Freq PRN Reason Stop Dose Admin Insulin Aspart 0 units 11/13/19 11:30 11/14/19 20:59 Novolog Flexpen SC 12/13/19 11:29 Not Given ACHS MELANI Metoprolol Succinate 25 mg 11/13/19 21:00 11/14/19 20:59 Toprol Xl PO 12/13/19 20:59 25 mg BID MELANI Administration Mometasone Furoate 2 puffs 11/13/19 21:00 11/14/19 20:58 Asmanex 220mcg INH 12/13/19 20:59 2 puffs BID MELANI Administration Rivaroxaban 20 mg 11/13/19 21:00 11/14/19 21:00 Xarelto PO 12/13/19 20:59 20 mg QPM MELANI Administration Simvastatin 20 mg 11/13/19 21:00 11/14/19 21:00 Zocor PO 12/13/19 20:59 20 mg QPM MELANI Administration Sotalol HCl 120 mg 11/13/19 21:00 11/14/19 20:58 Betapace PO 12/13/19 20:59 120 mg BID MELANI Administration Temazepam 30 mg 11/13/19 11:10 11/14/19 21:50 Restoril PO 12/13/19 11:09 30 mg HS PRN Administration Sleep Past Medical History Medical History Atrial fibrillation BPH (benign prostatic hyperplasia) COPD (chronic obstructive pulmonary disease) Diabetes mellitus, type 2 NIDDM History of colorectal cancer NO CHEMO/RADIATION HTN (hypertension) Hyperlipidemia Nephrolithiasis Obesity Pacemaker MEDTRONIC 2/2 TACHYBRADY; 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 PACER CHECK 05/26/18 Renal cyst Exercise / Class Metabolic Activity III < 4 Walking/Shop/Light housework Past Family History Family History Mother Family history of diabetes mellitus Past Surgical History Surgical History History of bilateral cataract extraction History of cardiac cath History of cardiac radiofrequency ablation 2016 History of carpal tunnel release B/L History of colectomy 2009 History of colonoscopy History of cystoscopy History of lithotripsy LITHOTRIPSY/ESWL History of permanent cardiac pacemaker placement 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 History of tonsillectomy History of tooth extraction History of total shoulder replacement RIGHT Social History Smoking Status: Former smoker tobacco type: cigarettes Smoking End Date: 25 years ago Hx Alcohol Use: Yes Alcohol type: wine alcohol intake frequency: 0-2 drinks per day Hx Substance Use: No substance use type: does not use Physical Exam Vital Signs Last Vital Signs Temp 36.5 C 11/15/19 03:58 Pulse 77 11/15/19 06:45 Resp 18 01/08/20 03:58 BP 123/72 11/15/19 03:58 Pulse Ox 94 11/15/19 03:58 Testing Laboratory Results 11/15/19 06:37 Hemoglobin A1c 8.1 % (4.5-5.6) H 11/14/19 07:05 11/14/19 19:51 POC Glucose 139 H Electrocardiogram Findings: + AFIB @ (87)
[2019-11-15 07:36] LABS: Albumin Globulin Ratio 0.9 (0.9-2); Albumin Level 2.9 gm/dl (3.4-5.0); BUN Creatinine Ratio 26.5 (10-20); Bilirubin,Total 0.5 mg/dl (0.2-1); Calcium 8.7 mg/dl (8.5-10.1); Creatinine Clr Calc Pharmacy 65.5 ml/min; Est GFR (African American) 81.7; Est GFR (Non-African American) 70.5; Globulin 3.4 gm/dl (2.5-4.0); Magnesium 2.2 mg/dl (1.8-2.4); Potassium 4.5 mmol/L (3.5-5.1); Total Protein 6.3 gm/dl (6.4-8.2)
--- NOTE | 2019-11-15 07:46 | Cardioversion ---
Date of Service November 15, 2019 The patient was brought to the cardiac catheterization laboratory. He was n.p.o. after midnight. Anesthesia was provided by the anesthesia department with propofol. When he was adequately sedated he was shocked with 200 J synced in a biphasic mode x1 with mosque of an atrial paced rhythm. He tolerated the procedure well. He was awake at the end of the procedure answering questions and moving all extremities to command. His post cardioversion EKG was atrial paced with a prolonged AV conduction, ventricularly sensed, with a left axis deviation and nonspecific T wave changes and a QTC of 465 mg on sotalol.
--- NOTE | 2019-11-15 07:52 | Cardiology Progress Note ---
Date of Service November 15, 2019 Subjective Patient was examined in the cardiac catheterization laboratory. He denies any c hest pain chest pressure chest heaviness. Has any shortness of breath at rest. He is unaware of any palpitations. As expected he is rather bored hanging out in the hospital for 3 days for sotalol loading. Results & Data Vital Signs (Past 12 Hours) Vital Signs Temp Pulse Pulse Resp BP Pulse Ox 11/15/19 06:45 77 11/15/19 03:58 36.5 C 68 18 123/72 94 11/15/19 00:00 76 11/14/19 23:57 36.2 C L 79 18 95/56 L 94 He is awake alert oriented x3 he is in no acute distress. HEENT: 2+ carotid upstrokes no carotid bruits jugular venous pressure appeared normal his sclera is anicteric his hearing is mildly diminished Lungs: Clear to auscultation bilaterally no rales rhonchi or wheezing Heart: irregular rate and rhythm no appreciable murmurs rubs or gallops Abdomen: soft tender nondistended positive bowel sounds Psychiatric: his affect appeared appropriate Extremities:No clubbing cyanosis or edema Impressions: 1. Symptomatic paroxysmal atrial fibrillation status post cardioversion maintaining sinus rhythm for only 48 hours. 2. Admission for sotalol loading and QT monitoring 3. History of atrial flutter status post flutter ablation 4. No evidence of epicardial coronary artery disease 5. Status post dual-chamber pacemaker for tachybradycardia syndrome 6. Chronic anticoagulation with a chads 2 Vasc score of 4 He is status post cardioversion this morning. His EKG is atrial paced ventricularly sensed. His QTC is 465 ms on sotalol. His QTC with sotalol loading has remained stable. His creatinine and potassium this morning are stable. He will receive his fifth dose of sotalol this morning and his sixth dose of sotalol this evening. if his QTC is acceptable on his 1 hour post EKG this evening he could be discharged at 10:00 tonight. Upon discharge he will remain on sotalol 120 mg twice a day. We did reduce his metoprolol dose from 50 mg twice daily to 25 mg twice daily. He will remain on Xarelto 20 mg daily. His flecainide which she was on as an outpatient should not be continued upon discharge. We will arrange for his outpatient follow-up. He will need an EKG in the office upon discharge in a week.
--- NOTE | 2019-11-15 07:54 | Anesthesiology Progress Note ---
Date of Service November 15, 2019 Anesthesia Post Procedure Vital Signs Vital Signs: Temp Pulse Pulse Resp BP Pulse Ox 11/15/19 06:45 77 11/15/19 03:58 36.5 C 68 18 123/72 94 11/15/19 00:00 76 11/14/19 23:57 36.2 C L 79 18 95/56 L 94 11/14/19 19:06 36.8 C 81 20 123/76 93 11/14/19 15:26 36.6 C 78 20 119/71 94 11/14/19 11:50 37.1 C 69 18 116/64 99 11/14/19 08:00 37.2 C 83 70 18 121/69 99 Transfer of Care Handoff Completed per policy Notes Mental Status: alert / awake / arousable Patient Amnestic to Procedure: Yes Nausea / Vomiting: adequately controlled Pain: adequately controlled Airway Patency, RR, SpO2: stable & adequate BP & HR: stable & adequate Hydration State: stable & adequate Anesthetic Complications: no major complications apparent
[2019-11-15] MEDS: MOMETASONE FUROATE 14 PUFF/1 INHALER INH SCH ×2 (08:51→20:39)
[2019-11-15] MEDS: SOTALOL HCL 80 MG TAB PO SCH ×2 (08:52→20:39)
[2019-11-15] MEDS: METOPROLOL SUCC 25MG EXT REL TAB PO SCH ×2 (08:52→20:39)
[2019-11-15] MEDS: INSULIN ASPART 100 UNITS/ML 3 ML PEN SC SCH ×4 (09:17→21:12)
--- NOTE | 2019-11-15 10:12 | Electrocardiogram Report ---
Test Reason : Blood Pressure : / mmHG Vent. Rate : 084 BPM Atrial Rate : 127 BPM P-R Int : 000 ms QRS Dur : 088 ms QT Int : 398 ms P-R-T Axes : 000 -44 -27 degrees QTc Int : 470 ms Atrial fibrillation with a competing junctional pacemaker Left axis deviation Septal infarct (cited on or before 13-NOV-2019) Abnormal ECG When compared with ECG of 14-NOV-2019 08:42, Nonspecific T wave abnormality no longer evident in Anterior leads Confirmed by Lorenzo Jones ([id number]) on 11/15/2019 10:11:57 AM Referred By: Zeke Fraga Confirmed By:Lorenzo Jones
--- NOTE | 2019-11-15 10:18 | Electrocardiogram Report ---
Test Reason : Blood Pressure : / mmHG Vent. Rate : 071 BPM Atrial Rate : 071 BPM P-R Int : 234 ms QRS Dur : 088 ms QT Int : 428 ms P-R-T Axes : 000 -68 -25 degrees QTc Int : 465 ms Atrial-paced rhythm with prolonged AV conduction Left axis deviation Abnormal ECG When compared with ECG of 14-NOV-2019 21:47, (unconfirmed) Electronic atrial pacemaker has replaced Atrial fibrillation Confirmed by Lorenzo Jones ([id number]) on 11/15/2019 10:18:04 AM Referred By: Zeke Fraga Confirmed By:Lorenzo Jones
--- NOTE | 2019-11-15 10:25 | Electrocardiogram Report ---
Test Reason : Blood Pressure : / mmHG Vent. Rate : 064 BPM Atrial Rate : 064 BPM P-R Int : 216 ms QRS Dur : 088 ms QT Int : 446 ms P-R-T Axes : 076 260 -36 degrees QTc Int : 460 ms Atrial-paced rhythm with prolonged AV conduction Right superior axis deviation Nonspecific T wave abnormality Abnormal ECG When compared with ECG of 15-NOV-2019 07:41, (unconfirmed) Nonspecific T wave abnormality now evident in Anterior leads Confirmed by Lorenzo Jones ([id number]) on 11/15/2019 10:25:18 AM Referred By: Zeke Fraga Confirmed By:Lorenzo Jones
--- NOTE | 2019-11-15 18:57 | Discharge Summary ---
Date of Service November 15, 2019 Admission HPI Per Admitting Provider Patient is a 84 years old male with past medical history of HTN, hyperlipidemia ,diabetes mellitus type 2, COPD, degenerative joint disease of the shoulder, history of colorectal cancer, history of meningioma, tachycardia-bradycardia syndrome, paroxysmal atrial fibrillation on Xarelto who was sent by his reroller hand Dr. Costa Collins to the PCU for start up of sotalol and possibly cardioversion in 3 days. Patient has a Medtronic pacemaker. On October 04, 2019 it was reported that the right ventricular lead exhibited under sensing. The lead remains in use. No patient complications have been reported as result of this event. This was reported to Dr. Payne. Patient reports being at his usual health and states that he has problems with insomnia and is started with atrial fibrillation's.he also reports feeling tired and increased shortness of breath at rest. Patient denies fever, chills, chest pain, lightheadedness, dizziness, presyncope, syncope, chest heaviness, chest pressure, abdominal pain, frequency, urgency. [facility] is [facility] and [facility]. Labs are pending, chest x-ray pending. Principal Diagnosis Atrial fibrillation Discharge Exam Constitutional WD/WN, vitals as above Eyes PERRL, conjunctivae normal, anicteric sclerae ENMT external ear and nose normal, oropharynx normal Neck trachea midline, no thyromegaly Respiratory normal respiratory effort, lungs clear to auscultation Cardiovascular Rate/Rhythm: regular rate and + irregularly irregular Heart Sounds: normal S1 and normal S2; no murmur Vessels: no JVD Extremities: normal capillary refill; no edema Gastrointestinal (Abdomen) normal bowel sounds, soft, nontender, no hepatosplenomegaly Musculoskeletal no cyanosis or clubbing, extremities motor strength 5/5 Skin no rashes, warm and dry Neurologic patellar DTR's 2+ bilat, sensation intact and PERRL, EOMI, accommodation nl, no face palsy, no dysarthria Psychiatric A+Ox3, euthymic affect Lymphatic no cervical or axillary lymphadenopathy Discharge Data Allergies Allergy/AdvReac Type Severity Reaction Status Date / Time codeine Allergy Mild N/V Verified 10/02/19 11:07 naproxen AdvReac Mild GI UPSET Verified 10/02/19 11:07 zolpidem AdvReac Mild "WEIRD Verified 10/02/19 11:07 DREAMS" Consultations 11/13/19 11:10 Consult Cardiology Routine Procedures Performed Operation Date: 11/15/19 07:45 Actual Procedures p Cardioversion - Costa Collins DO Hospital Course (1) Atrial fibrillation: Direct admit to PCU on telemetry for paroxysmal persistent atrial fibrillation. tolerating Sotalol 120mg BID, QTc is acceptable successful cardioversion on day of discharge with Dr. Collins continue Xarelto for full anticoagulation Metoprolol succinate reduced to 25 mg twice daily per recommendations of Dr. Collins. discharge to home on Sotalol and metoprolol after cardioversion, follow up with PCP and cardiology (2) Benign prostatic hyperplasia: Stable, but chronic condition .Continue alprostadil 500 MCG's intraurethral suppositories daily as needed. (3) COPD (chronic obstructive pulmonary disease): Stable, chronic condition. Continue mometasone 220 MCG's 2 puffs twice daily, albuterol sulfate 90 MCG's inhalation every 6 hours as needed, albuterol sulfate 2.5 mg / 3 mL solution for nebulization every 4 hours as needed. lungs clear, no wheezing, no distress (4) Hypertension: BP acceptable at 119/71 on Toprol 25mg (5) Colorectal cancer: Stable. In remission (6) Obesity: BMI of 28.7. Patient advised to try to lose weight with decreased carbohydrate intake and exercises. Recommended balanced diet. (7) Hyperlipidemia: continue Zocor Total Time Total Time Spent Total Time Spent (In Minutes): 31 minutes Total Time Includes: Examination of the Patient, Discharge Planning, Medication Reconciliation, Communication With Other Providers (Dr. Collins) and Other (discussion with patient's ) Discharge Plan Discharge Items Patient Disposition: Home - Self-Care Reason For Visit: AFIB Discharge Diagnosis: Atrial fibrillation status post cardioversion, successful Condition on Discharge: Good Goals: follow up with Dr. Collins next week with EKG Activity: Resume your previous activity Non-emergency contact: Primary Care Provider and Rim Roller Operator Call non-emergency contact if: you have any medication questions and your symptoms worsen Follow-up/Referrals: Jeni Ferrell MD [Primary Care Provider] - Diet: Heart Healthy Addtl Attending Provider Instructions: Medications: - SOTALOL: 120mg twice a day, new scripts provided - METOPROLOL: dose reduced to 25mg - FLECAINIDE: this is stopped, do not take any more Atrial fibrillation successful cardioversion this morning, now atrial paced will continue on Sotalol 120mg twice a day dose of Metoprolol reduced to 25mg per Dr. Collins STOP Flecainide Dr. Collins's office will contact you for follow up appt next week with EKG Pending Studies at Discharge: No Stand-Alone Forms: My [facility], Smoking Cessation Medications and DC Order Prescriptions: New sotalol 80 mg Tablet 120 mg PO BID 30 Days Qty: 90 RF: 0 metoprolol succinate 25 mg Tablet Extended Release 24 Hr 25 mg PO BID 30 Days Qty: 60 RF: 0 Continued albuterol sulfate 90 mcg/actuation HFA aerosol inhaler 2 puffs INH Q6H PRN (Reason: shortness of breath or wheezing) Qty: 18 RF: 6 [place] 500 mcg suppository 500 mcg UR DAILY PRN (Reason: erectile dysfunction) Qty: 6 RF: 11 mometasone 220 mcg/ actuation (120) aerosol powdr breath activated 2 puffs inhalation BID Qty: 1 RF: 0 albuterol sulfate 2.5 mg /3 mL (0.083 %) solution for nebulization 2.5 mg inhalation Q4H PRNQty: 1 RF: 0 temazepam 30 mg Capsule 30 mg PO HS PRN (Reason: Sleep) RF: 0 simvastatin 20 mg Tablet 20 mg PO QPM RF: 0 rivaroxaban 20 mg Tablet 20 mg PO QPM RF: 0 Discontinued metoprolol succinate 50 mg tablet extended release 24 hr 50 mg PO BID RF: 0 flecainide 50 mg Tablet 50 mg PO Q12H RF: 0 Discharge Orders: Discharge Order (Routine); Ordered 11/15/19 Ordered By: Zeke Fraga Admission Data Admit Date/Time: 11/13/19 09:59 Attending Provider: Zeke Fraga Admit Provider: Zeke Fraga Primary Care Provider: Jeni Ferrell Other Providers: Costa Collins Other Interventions: Discharge Summary Assessment (RN) Last Done: 11/15/19 21:15 DC Date/Time DO NOT enter until pt leaves facility: 11/15/19 22:10
[2019-11-15] MEDS: RIVAROXABAN 20 MG TAB PO SCH (20:39)
[2019-11-15] MEDS: SIMVASTATIN 20 MG TAB PO SCH (20:39)
--- NOTE | 2019-11-16 23:06 | Electrocardiogram Report ---
Test Reason : Blood Pressure : / mmHG Vent. Rate : 061 BPM Atrial Rate : 061 BPM P-R Int : 232 ms QRS Dur : 086 ms QT Int : 448 ms P-R-T Axes : 071 -02 -30 degrees QTc Int : 450 ms Atrial-paced rhythm with prolonged AV conduction Septal infarct , age undetermined Abnormal ECG When compared with ECG of 15-NOV-2019 09:57, Nonspecific T wave abnormality, improved in Anterior leads Confirmed by Naveed Benson ([id number]) on 11/16/2019 11:06:31 PM Referred By: Zeke Fraga Confirmed By:Naveed Benson
== END 2019-11-15 22:10 | disposition home or self-care (01) | DRG 310 ==
LOC: 2S 09:59

== ENCOUNTER 2023-04-25 08:18 | Observation (INO) ==
--- NOTE | 2023-04-25 08:36 | Emergency Department Note ---
Impression & Plan Vertigo, Ataxia, Hypoxia ED Provider Note NAME: ANGELITA BENSON AGE: 87 SEX: M : 1935 ARRIVES VIA: Ambulance INFORMANT: Patient, EMS ED PROVIDER(S): Lorenzo Ritter DO CHIEF COMPLAINT: Dizziness HPI: The patient is an 87-year-old male who has a history of atrial fibrillation who presented to the emergency department for an evaluation of dizziness. The patient states he went to bed last evening and normal health. He woke up at 730 this morning. He knew right away that something was not right. He felt very dizzy and diaphoretic. He felt very nauseated. He had episodes of emesis. His significant other presented to the emergency department with him. She helped him to the bathroom but he was very unsteady and needed to hold onto her. He does have a history of atrial fibrillation and took his blood thinner last evening. The patient does not have a history of stroke. He does take other medications for hypertension. He was given Zofran prior to arrival. According to the EMS personnel the patient had a slight left facial droop which improved on arrival. He denies having any unilateral weakness or headache. He denies having any trauma. The patient states his symptoms are improved since the Zofran but are still present when he tries to move his head. ROS: See above HPI for pertinent positives & negatives. A total of 10 systems reviewed and were otherwise negative. PAST MEDICAL HISTORY: See Below PAST SURGICAL HISTORY: See Below FAMILY HISTORY: See Below SOCIAL HISTORY: See Below HOME MEDICATIONS: See Below ALLERGIES: See Below VITALS: See Below PHYSICAL EXAMINATION: GENERAL: Patient is awake and alert. He is very anxious appearing. EYES: The conjunctivae are clear. The pupils are round and reactive. There is no nystagmus elicited. EARS, NOSE, MOUTH AND THROAT: The nose is without any evidence of any deformity. NECK: The neck is nontender and supple. RESPIRATORY: Normal respiratory effort is noted there is no evidence of wheezing rhonchi or rales CARDIOVASCULAR: Irregular heart sounds were noted to auscultation. There is no murmur. GASTROINTESTINAL: The abdomen is soft. Abdomen is nontender. MUSCULOSKELETAL/EXTREMITIES: There is no evidence of gross deformity full range of motion is noted in the hips and shoulders. SKIN: There is no obvious evidence of any rash. Chronic venous stasis changes were noted. NEUROLOGIC: Patient is awake alert and oriented x3. There is no facial droop appreciated. There is no drift in the upper extremities. Patient is able to hold each leg off the bed for greater than 5 seconds. [id number] was intact. MEDICAL DECISION MAKING: The patient is an 87-year-old male who presented to the emergency department for vertigo and ataxia. The patient's symptoms were moderate to severe upon arrival. They did slowly improve in the emergency department but were ongoing. The patient does have multiple risk factors for central cause for his vertigo. The patient was treated with Zofran prior to arrival. He was also given Antivert in the emergency department. I discussed patient's laboratory and radiographic studies with him. I also discussed some of the possible causes for his presentation. Given his risk factors I do feel the patient may require further work-up for a central cause for his vertigo. For this reason I discussed his condition with the on-call [facility] hospitalist. They have agreed to evaluate the patient in the emergency department for further man agement and disposition. Triage Nursing notes reviewed. Prior medical records reviewed Vital Signs: reviewed and remarkable for elevated blood pressure and hypoxia. Differential diagnosis: Benign positional vertigo, dehydration, hypovolemia, anemia, tumor, infection, hypoglycemia, electrolyte abnormalities, cardiac sources, intracerebral event, toxicologic, neurologic, as well as other pathologies. ER treatment provided: See below Diagnostics interpreted by me: ECG: EKG was obtained in the emergency department. My interpretation is ventricular paced rhythm at 74 bpm. Some sokaogon beats were noted which appear to be consistent with atrial fibrillation. There is no acute ST segment abnormalities and sokaogon beats. This was compared to a tracing from November 15, 2019. On the previous tracing there is an atrial paced ventricular sensed rhythm. Cardiac Monitoring: An order was placed for continuous cardiac monitoring. The monitor shows a rate of 80 bpm with paced rhythm. Laboratory studies: As stated above and show below. Imaging studies: See below. Radiographic imaging was reviewed by myself Consultation(s): I discussed this case with Carm[facility] 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 PACER CHECK 05/26/18 Renal cyst Renal Mass Surgical History History of bilateral cataract extraction History of cardiac cath History of cardiac radiofrequency ablation 2016 History of carpal tunnel release B/L History of colectomy 2010 History of colonoscopy History of cystoscopy History of lithotripsy LITHOTRIPSY/ESWL History of permanent cardiac pacemaker placement 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 History of tonsillectomy History of tooth extraction History of total shoulder replacement RIGHT Family History Mother Family history of diabetes mellitus Social History Smoking Status: Former smoker Second Hand Exposure: No; Do You Dip or Chew Tobacco: No; Hx Alcohol Use: Yes Alcohol type: wine Hx Substance Use: No Preferred Language: Greek Communication Ability: Effective Visual Impairment: Limited Associate Professor Of Library Science Required: No Beliefs That Will Affect Care: None Current Living Situation: Spouse Feels Safe at Home: Yes Assistive Devices: None Allergies Allergies Allergy/AdvReac Type Severity Reaction Status Date / Time codeine Allergy Mild N/V Verified 09/03/22 11:20 naproxen AdvReac Mild GI UPSET Verified 09/03/22 11:20 zolpidem AdvReac Mild "WEIRD Verified 09/03/22 11:20 DREAMS" Home Meds Home Medications Medication Instructions Recorded Confirmed rivaroxaban 20 mg tablet 20 mg PO QPM 09/29/19 02/24/23 simvastatin 20 mg tablet 20 mg PO QPM 09/29/19 02/24/23 metoprolol succinate 50 mg capsule 75 mg PO DAILY 08/29/21 02/24/23 sprinkle, ext. release 24 hr trazodone 50 mg tablet 50 mg PO DAILY 02/06/22 02/24/23 Previous Rx's Medication Instructions Recorded Flutter Valve #1 ea 08/29/21 Flutter Valve #1 ea 02/24/23 albuterol sulfate 90 mcg/actuation 2 puff inhalation Q6H PRN 02/24/23 aerosol inhaler shortness of breath or wheezing #18 grams budesonide 0.25 mg/2 mL suspension 0.25 mg (2 mL) inhalation BID #60 02/24/23 for nebulization mL tiotropium 2.5 mcg-olodaterol 2.5 2 puff inhalation DAILY #4 grams 02/24/23 mcg/actuation mist for inhalation (Stiolto Respimat) Results & Data (ED) Vital Signs Vital Signs - 24 hr 04/25/23 08:24 04/25/23 08:31 04/25/23 08:25 Temperature 36.4 C L Temperature Source Oral Pulse Rate 82 80 Respiratory Rate 18 Respiratory Effort / Characteristics Non-Labored Spontaneous Respiratory Depth Normal Blood Pressure 147/88 H Blood Pressure Mean 107 Blood Pressure Position Sitting Pulse Oximetry 92 87 L Oxygen Delivery Method Room Air Nasal Cannula Sepsis Recent Fever Within 48 Hours No Sepsis New/Unexplained Change in Mental Status N/A Sepsis Action Taken by Nursing No Action Required Oxygen Flow Rate - Titration 2 Pulse Oximetry Post Tiitration 93 Home Medications Current Medication List: was personally reviewed by me Laboratory Data Attestation: I reviewed the patient's lab results. 04/25/23 08:43 04/25/23 08:43 Lab Results 04/25/23 04/25/23 04/25/23 Range/Units 08:43 08:43 08:43 WBC 7.09 (4.8-10.8) K/ul RBC 4.10 L (4.70-6.10) M/uL Hgb 12.8 L (14.0-18.0) g/dl POC Hgb (14.0-18.0) g/dl Hct 37.7 L (42.0-52.0) % POC Hct (42-52) % MCV 92.0 (80.0-100.0) fL MCH 31.2 (25.0-34.0) pg MCHC 34.0 (32.0-36.0) g/dL RDW Std Deviation 48.7 H (36.4-46.3) fL RDW Coeff of Aracely 14.5 (11.5-14.5) % Plt Count 120 L (130-400) K/uL MPV 11.5 (9.4-12.4) fL Immature Gran % (Auto) 0.4 % Neut % (Auto) 72.5 % Lymph % (Auto) 13.8 % Baldwin % (Auto) 8.0 % Eos % (Auto) 4.5 % Baso % (Auto) 0.8 % Neut # (Auto) 5.13 (1.40-6.50) K/uL Lymph # (Auto) 0.98 L (1.2-3.4) K/uL Baldwin # (Auto) 0.57 (0.11-0.59) K/uL Eos # (Auto) 0.32 (0-0.50) K/uL Baso # (Auto) 0.06 (0-0.2) K/uL Immature Gran # (Auto) 0.03 (0.01-0.20) K/uL PT 15.3 H (9.0-12.0) Seconds INR 1.4 H (0.9-1.1) APTT 30.5 (21.0-31.0) Seconds PTT Ratio 1.1 POC Sodium (135-144) mmol/L Sodium 137 (136-145) mmol/L POC Potassium (3.3-5.0) mmol/L Potassium 4.1 (3.5-5.1) mmol/L POC Chloride (101-112) mmol/L Chloride 106 (98-107) mmol/L Carbon Dioxide 26 (21-32) mmol/L POC Total CO2 (24-31) mmol/L Anion Gap 5 (3-11) POC Anion Gap (16-25) mmol/L POC BUN (7-18) mg/dl BUN 23 (6-23) mg/dl Creatinine 0.87 (0.6-1.4) mg/dl POC Creatinine (0.6-1.3) mg/dl Est Cr Clr Drug Dosing 68.7 ml/min Est GFR ( Amer) 89.9 ml/min Est GFR (Non-Af Amer) 77.6 ml/min BUN/Creatinine Ratio 26.4 H (10-20) Glucose 225 H (70-99(Fasting)) mg/dl POC Glucose (other) (70-99) mg/dl Calcium 8.3 L (8.6-10.3) mg/dl POC Ioniz Calcium Marquez (1.12-1.32) mmol/l Magnesium 1.9 (1.7-2.4) mg/dl Total Bilirubin 0.6 (0.2-1.0) mg/dl AST 17 (13-39) U/L ALT 19 (7-52) U/L Alkaline Phosphatase 82 (34-104) U/L Troponin I High Sens 17.3 (0-20) pg/ml Total Protein 6.2 (6.0-8.3) gm/dl Albumin 3.6 (3.4-5.0) gm/dl Globulin 2.6 (2.5-4.0) gm/dl Albumin/Globulin Ratio 1.4 (0.9-2) 04/25/23 Range/Units 08:44 WBC (4.8-10.8) K/ul RBC (4.70-6.10) M/uL Hgb (14.0-18.0) g/dl POC Hgb 13.3 L (14.0-18.0) g/dl Hct (42.0-52.0) % POC Hct 39 L (42-52) % MCV (80.0-100.0) fL MCH (25.0-34.0) pg MCHC (32.0-36.0) g/dL RDW Std Deviation (36.4-46.3) fL RDW Coeff of Aracely (11.5-14.5) % Plt Count (130-400) K/uL MPV (9.4-12.4) fL Immature Gran % (Auto) % Neut % (Auto) % Lymph % (Auto) % Baldwin % (Auto) % Eos % (Auto) % Baso % (Auto) % Neut # (Auto) (1.40-6.50) K/uL Lymph # (Auto) (1.2-3.4) K/uL Baldwin # (Auto) (0.11-0.59) K/uL Eos # (Auto) (0-0.50) K/uL Baso # (Auto) (0-0.2) K/uL Immature Gran # (Auto) (0.01-0.20) K/uL PT (9.0-12.0) Seconds INR (0.9-1.1) APTT (21.0-31.0) Seconds PTT Ratio POC Sodium 140 (135-144) mmol/L Sodium (136-145) mmol/L POC Potassium 4.0 (3.3-5.0) mmol/L Potassium (3.5-5.1) mmol/L POC Chloride 103 (101-112) mmol/L Chloride (98-107) mmol/L Carbon Dioxide (21-32) mmol/L POC Total CO2 25 (24-31) mmol/L Anion Gap (3-11) POC Anion Gap 17.0 (16-25) mmol/L POC BUN 23 H (7-18) mg/dl BUN (6-23) mg/dl Creatinine (0.6-1.4) mg/dl POC Creatinine 0.8 (0.6-1.3) mg/dl Est Cr Clr Drug Dosing ml/min Est GFR ( Amer) ml/min Est GFR (Non-Af Amer) ml/min BUN/Creatinine Ratio (10-20) Glucose (70-99(Fasting)) mg/dl POC Glucose (other) 232 H (70-99) mg/dl Calcium (8.6-10.3) mg/dl POC Ioniz Calcium Marquez 1.15 (1.12-1.32) mmol/l Magnesium (1.7-2.4) mg/dl Total Bilirubin (0.2-1.0) mg/dl AST (13-39) U/L ALT (7-52) U/L Alkaline Phosphatase (34-104) U/L Troponin I High Sens (0-20) pg/ml Total Protein (6.0-8.3) gm/dl Albumin (3.4-5.0) gm/dl Globulin (2.5-4.0) gm/dl Albumin/Globulin Ratio (0.9-2) Administered Medications Discontinued Medications Ioversol (Optiray 320 125ml) 120 ml IV ONCE ONE Stop: 04/25/23 08:56 Last Admin: 04/25/23 08:55 Dose: 120 ml Documented By: DYLAN Meclizine HCl (Meclizine Hcl 25 Mg Tab) 25 mg PO NOW STA Stop: 04/25/23 09:40 Last Admin: 04/25/23 10:04 Dose: 25 mg Documented By: JOSE Imaging Data Attestation: I personally reviewed and interpreted this imaging study as follows: My Impression: 1 view chest x-ray was obtained in the emergency department. My interpretation is no free air or definite infiltrate, final report below. CT of the brain was obtained in the emergency department. My interpretation is no intracranial hemorrhage or mass, final report below. Radiologist's Impression: Chest X-Ray 04/25/23 08:27 SINGLE VIEW CHEST CLINICAL HISTORY: Neurological deficit. Stroke like symptoms. FINDINGS: 2 AP, portable, upright chest radiographs are compared to study dated 11/13/2019 and correlated with chest CT dated 08/01/2021. The examination is degraded by portable technique, apical lordotic positioning, and patient rotation. A 2-lead cardiac pacemaker is unchanged in position and partially obscures the left upper chest. The heart is enlarged noting atherosclerotic calcification of the thoracic aorta. There is pulmonary vascular congestion. Emphysema and chronic interstitial thickening is similar to previous. There are right basilar opacities. No large pleural effusion or Pneumothorax is seen. The skeletal structures are osteopenic. The bony thorax is grossly intact. A right shoulder arthroplasty is in place. IMPRESSION: 1. 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 2. Emphysema. 3. Bibasilar opacities could represent scarring/atelectasis versus pneumonia/aspiration pneumonitis. Clinical correlation will be required. ACT 112: Negative or not required by law. Electronically signed by: Troy Armando M.D. 04/25/2023 8:[address] 04/25/23 08:[address] OF THE BRAIN; CT ANGIOGRAM OF THE BRAIN; CT ANGIOGRAM OF THE NECK CLINICAL HISTORY: Neurological deficit. Stroke like symptoms. Dizziness. COMPARISON STUDY: CT of the brain dated 09/25/2013. MRI of the brain dated 03/27/2015. CT of the cervical spine dated 09/25/2013. TECHNIQUE: Unenhanced axial CT scan of the brain is performed. Subsequently, following the IV administration of 120 of Optiray 320, CT angiogram of the head and neck was performed from the aortic arch to the vertex. Images are reviewed in the axial, sagittal, and coronal planes. 3-D MIPS images are created and assessed. IV contrast was administered without complication. All measurements were calculated based on NASCET criteria. A dose lowering technique was utilized adhering to the principles of ALARA. CT DOSE: 1146.52 mGy.cm FINDINGS: Brain parenchyma: There is age-related involutional change noting mild to moderate subcortical and periventricular microangiopathic disease. Again seen is a densely calcified mass in the left temporal fossa. This measures 2.5 x 2.4 cm and is similar in appearance to the 2013 examination. This is typical for a meningioma. There is minimal surrounding mass effect. No additional enhancing lesion is suggested on the angiographic phase images. There is no hemorrhage, midline shift, or evidence of acute territorial ischemia by CT criteria. The ventricles, sulci, and cisterns are prominent secondary to involutional change. No extra-axial fluid collection is seen. Thoracic aorta: There is atherosclerotic calcification of the thoracic aorta. Visualized portions of the thoracic aorta are normal in caliber. The aortic arch demonstrates standard 3-vessel anatomy. Right carotid arterial system: The right common carotid artery is widely patent, as are the right internal and external carotid arteries. Mild calcified plaque is noted in the carotid bulb. Left carotid arterial system: The left common carotid artery is widely patent, as are the left internal and external carotid arteries. Calcified plaque is noted in the carotid bulb. Vertebral arteries: The vertebral arteries are widely patent bilaterally and codominant. Subclavian arteries: Widely patent bilaterally. Intracranial vasculature: There is atherosclerotic calcification of the cavernous carotid and vertebral arteries. The internal carotid arteries are patent at the skull base, as are the anterior and middle cerebral arteries bilaterally. The vertebrobasilar system and posterior cerebral arteries are widely patent. The vertebral arteries are codominant. There is origin of the right posterior cerebral artery. There is no aneurysm, high-grade stenosis, or focal vessel cut off seen throughout the intracranial circulation. Jugular veins: Patent bilaterally. Dural sinuses: Patent. Lung apices: Emphysematous change is noted at the apices. Upper lobe lung parenchyma is otherwise clear as imaged. Soft tissues: The visualized pharyngeal soft tissues are normal in appearance noting angiographic phase technique. The oropharyngeal airway appears widely patent. The thyroid gland is normal in size and heterogeneous in attenuation. The salivary glands are normal in appearance. Lobular soft tissue anterior to the thyroid cartilage on image #176 measuring up to 2.5 cm has not appreciably changed dating back to 2013 and is of doubtful significance. No cervical lymphadenopathy is seen. Pacemaker leads are noted at the thoracic inlet. Skeletal structures: The skeletal structures are osteopenic. The calvarium appears intact. The cervical spine is maintained noting advanced multilevel spondylosis. No lytic or blastic lesion is seen. Orbits: The bony orbits are intact. Orbital contents are normal as visualized noting bilateral ocular lens implants. Sinuses and mastoids: There is moderate mucosal thickening within the frontal and ethmoid sinuses. Mild mucosal thickening is seen in the sphenoid and maxillary sinuses. The mastoid air cells are well pneumatized. IMPRESSION: 1. There is no hemorrhage, midline shift, or evidence of acute territorial ischemia by CT criteria. 2. A densely calcified meningioma in the left temporal fossa has not significantly changed dating back to 2012. There is minimal surrounding mass effect. 3. Unremarkable CT angiogram of the brain. 4. Unremarkable CT angiogram of the neck. 5. Emphysema. 6. Additional findings as above. ACT 112: Negative or not required by law. Electronically signed by: Troy Armando M.D. 04/25/2023 9:24 AM Head CTA 04/25/23 08:[address] OF THE BRAIN; CT ANGIOGRAM OF THE BRAIN; CT ANGIOGRAM OF THE NECK CLINICAL HISTORY: Neurological deficit. Stroke like symptoms. Dizziness. COMPARISON STUDY: CT of the brain dated 09/25/2013. MRI of the brain dated 03/27/2015. CT of the cervical spine dated 09/25/2013. TECHNIQUE: Unenhanced axial CT scan of the brain is performed. Subsequently, following the IV administration of 120 of Optiray 320, CT angiogram of the head and neck was performed from the aortic arch to the vertex. Images are reviewed in the axial, sagittal, and coronal planes. 3-D MIPS images are created and assessed. IV contrast was administered without complication. All measurements were calculated based on NASCET criteria. A dose lowering technique was utilized adhering to the principles of ALARA. CT DOSE: 1146.52 mGy.cm FINDINGS: Brain parenchyma: There is age-related involutional change noting mild to moderate subcortical and periventricular microangiopathic disease. Again seen is a densely calcified mass in the left temporal fossa. This measures 2.5 x 2.4 cm and is similar in appearance to the 2013 examination. This is typical for a meningioma. There is minimal surrounding mass effect. No additional enhancing lesion is suggested on the angiographic phase images. There is no hemorrhage, midline shift, or evidence of acute territorial ischemia by CT criteria. The ventricles, sulci, and cisterns are prominent secondary to involutional change. No extra-axial fluid collection is seen. Thoracic aorta: There is atherosclerotic calcification of the thoracic aorta. Visualized portions of the thoracic aorta are normal in caliber. The aortic arch demonstrates standard 3-vessel anatomy. Right carotid arterial system: The right common carotid artery is widely patent, as are the right internal and external carotid arteries. Mild calcified plaque is noted in the carotid bulb. Left carotid arterial system: The left common carotid artery is widely patent, as are the left internal and external carotid arteries. Calcified plaque is noted in the carotid bulb. Vertebral arteries: The vertebral arteries are widely patent bilaterally and codominant. Subclavian arteries: Widely patent bilaterally. Intracranial vasculature: There is atherosclerotic calcification of the cavernous carotid and vertebral arteries. The internal carotid arteries are patent at the skull base, as are the anterior and middle cerebral arteries bilaterally. The vertebrobasilar system and posterior cerebral arteries are widely patent. The vertebral arteries are codominant. There is origin of the right posterior cerebral artery. There is no aneurysm, high-grade stenosis, or focal vessel cut off seen throughout the intracranial circulation. Jugular veins: Patent bilaterally. Dural sinuses: Patent. Lung apices: Emphysematous change is noted at the apices. Upper lobe lung parenchyma is otherwise clear as imaged. Soft tissues: The visualized pharyngeal soft tissues are normal in appearance noting angiographic phase technique. The oropharyngeal airway appears widely patent. The thyroid gland is normal in size and heterogeneous in attenuation. The salivary glands are normal in appearance. Lobular soft tissue anterior to the thyroid cartilage on image #176 measuring up to 2.5 cm has not appreciably changed dating back to 2012 and is of doubtful significance. No cervical lymphadenopathy is seen. Pacemaker leads are noted at the thoracic inlet. Skeletal structures: The skeletal structures are osteopenic. The calvarium appears intact. The cervical spine is maintained noting advanced multilevel spondylosis. No lytic or blastic lesion is seen. Orbits: The bony orbits are intact. Orbital contents are normal as visualized noting bilateral ocular lens implants. Sinuses and mastoids: There is moderate mucosal thickening within the frontal and ethmoid sinuses. Mild mucosal thickening is seen in the sphenoid and maxillary sinuses. The mastoid air cells are well pneumatized. IMPRESSION: 1. There is no hemorrhage, midline shift, or evidence of acute territorial ischemia by CT criteria. 2. A densely calcified meningioma in the left temporal fossa has not significantly changed dating back to 2012. There is minimal surrounding mass effect. 3. Unremarkable CT angiogram of the brain. 4. Unremarkable CT angiogram of the neck. 5. Emphysema. 6. Additional findings as above. ACT 112: Negative or not required by law. Electronically signed by: Troy Armando M.D. 04/25/2023 9:24 AM Neck CTA 04/25/23 08:[address] OF THE BRAIN; CT ANGIOGRAM OF THE BRAIN; CT ANGIOGRAM OF THE NECK CLINICAL HISTORY: Neurological deficit. Stroke like symptoms. Dizziness. COMPARISON STUDY: CT of the brain dated 09/25/2013. MRI of the brain dated 03/27/2015. CT of the cervical spine dated 09/25/2013. TECHNIQUE: Unenhanced axial CT scan of the brain is performed. Subsequently, following the IV administration of 120 of Optiray 320, CT angiogram of the head and neck was performed from the aortic arch to the vertex. Images are reviewed in the axial, sagittal, and coronal planes. 3-D MIPS images are created and assessed. IV contrast was administered without complication. All measurements were calculated based on NASCET criteria. A dose lowering technique was utilized adhering to the principles of ALARA. CT DOSE: 1146.52 mGy.cm FINDINGS: Brain parenchyma: There is age-related involutional change noting mild to moderate subcortical and periventricular microangiopathic disease. Again seen is a densely calcified mass in the left temporal fossa. This measures 2.5 x 2.4 cm and is similar in appearance to the 2013 examination. This is typical for a meningioma. There is minimal surrounding mass effect. No additional enhancing lesion is suggested on the angiographic phase images. There is no hemorrhage, m idline shift, or evidence of acute territorial ischemia by CT criteria. The ventricles, sulci, and cisterns are prominent secondary to involutional change. No extra-axial fluid collection is seen. Thoracic aorta: There is atherosclerotic calcification of the thoracic aorta. Visualized portions of the thoracic aorta are normal in caliber. The aortic arch demonstrates standard 3-vessel anatomy. Right carotid arterial system: The right common carotid artery is widely patent, as are the right internal and external carotid arteries. Mild calcified plaque is noted in the carotid bulb. Left carotid arterial system: The left common carotid artery is widely patent, as are the left internal and external carotid arteries. Calcified plaque is noted in the carotid bulb. Vertebral arteries: The vertebral arteries are widely patent bilaterally and codominant. Subclavian arteries: Widely patent bilaterally. Intracranial vasculature: There is atherosclerotic calcification of the cavernous carotid and vertebral arteries. The internal carotid arteries are patent at the skull base, as are the anterior and middle cerebral arteries bilaterally. The vertebrobasilar system and posterior cerebral arteries are widely patent. The vertebral arteries are codominant. There is origin of the right posterior cerebral artery. There is no aneurysm, high-grade stenosis, or focal vessel cut off seen throughout the intracranial circulation. Jugular veins: Patent bilaterally. Dural sinuses: Patent. Lung apices: Emphysematous change is noted at the apices. Upper lobe lung p arenchyma is otherwise clear as imaged. Soft tissues: The visualized pharyngeal soft tissues are normal in appearance noting angiographic phase technique. The oropharyngeal airway appears widely patent. The thyroid gland is normal in size and heterogeneous in attenuation. T he salivary glands are normal in appearance. Lobular soft tissue anterior to the thyroid cartilage on image #176 measuring up to 2.5 cm has not appreciably changed dating back to 2012 and is of doubtful significance. No cervical lymphadenopathy is seen. Pacemaker leads are noted at the thoracic inlet. Skeletal structures: The skeletal structures are osteopenic. The calvarium appears intact. The cervical spine is maintained noting advanced multilevel spondylosis. No lytic or blastic lesion is seen. Orbits: The bony orbits are intact. Orbital contents are normal as visualized noting bilateral ocular lens implants. Sinuses and mastoids: There is moderate mucosal thickening within the frontal and ethmoid sinuses. Mild mucosal thickening is seen in the sphenoid and maxillary sinuses. The mastoid air cells are well pneumatized. IMPRESSION: 1. There is no hemorrhage, midline shift, or evidence of acute territorial ischemia by CT criteria. 2. A densely calcified meningioma in the left temporal fossa has not significantly changed dating back to 2012. There is minimal surrounding mass effect. 3. Unremarkable CT angiogram of the brain. 4. Unremarkable CT angiogram of the neck. 5. Emphysema. 6. Additional findings as above. ACT 112: Negative or not required by law. Electronically signed by: Troy Armando M.D. 04/25/2023 9:24 AM Discharge Plan Visit Data Chief Complaint: Illness ED Provider: Lorenzo Ritter Discharge Problem: Vertigo, Ataxia, Hypoxia Patient Disposition: Being Evaluated by Hospitalist Forms Stand Alone Forms: My [facility] Prescriptions Prescriptions: No Action (DME) Flutter Valve Device See Rx Instructions .MEDSUPPLY Qty: 1 0RF Rx Instructions: Use it every 6 hours when awake. trazodone 50 mg tablet 50 mg PO DAILY Stiolto Respimat 2.5-2.5 mcg/actuation mist 2 puff INH DAILY Qty: 4 12RF budesonide 0.25 mg/2 mL suspension for nebulization 0.25 mg inhalation BID Qty: 60 0RF albuterol sulfate 90 mcg/actuation HFA aerosol inhaler 2 puff INH Q6H PRN (Reason: shortness of breath or wheezing) Qty: 18 4RF (DME) Flutter Valve Device See Rx Instructions .MEDSUPPLY Qty: 1 0RF Rx Instructions: Use it every 6 hours when awake. metoprolol succinate 50 mg capsule,sprinkle,ER 24hr 75 mg PO DAILY simvastatin 20 mg Tablet 20 mg PO QPM rivaroxaban 20 mg Tablet 20 mg PO QPM Referrals Referrals: Jeni Ferrell MD [Physician] -
--- NOTE | 2023-04-25 08:52 | XRay Report ---
SINGLE VIEW CHEST CLINICAL HISTORY: Neurological deficit. Stroke like symptoms. FINDINGS: 2 AP, portable, upright chest radiographs are compared to study dated 11/13/2019 and correlat ed with chest CT dated 08/01/2021. The examination is degraded by portable technique, apical lordotic positioning, and patient rotation. A 2-lead cardiac pacemaker is unchanged in position and partially obscures the left upper chest. The heart is enlarged noting atherosclerotic calcification of the tho racic aorta. There is pulmonary vascular congestion. Emphysema and chronic interstitial thickening is similar to previous. There are right basilar opacities. No large pleural effusion or Pneumothorax is seen. The skeletal structures are osteopenic. The bony thorax is grossly intact. A right shoulder ar throplasty is in place. IMPRESSION: 1. 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 2. Emphysema. 3. Bibasilar opacities could represent scarring/atelectasis versus pneumonia/aspiration pneumonitis. Clinical correlation will be required. ACT 112: Negative or not required by law. Electronically signed by: Troy Armando M.D. 04/25/2023 8:49 AM
[2023-04-25] MEDS ORDERED: OPTIRAY 320 125ml IV ONE (08:55)
[2023-04-25 08:57] LABS: iSTAT Creatinine 0.8 mg/dl (0.6-1.3); iSTAT Hemoglobin 13.3 g/dl (14.0-18.0); iSTAT Ionized Calcium 1.15 mmol/l (1.12-1.32)
[2023-04-25 09:24] LABS: Basophils # (auto) 0.06 K/uL (0-0.2); Basophils % (auto) 0.8 %; Eosinophils # (auto) 0.32 K/uL (0-0.50); Eosinophils % (auto) 4.5 %; Hematocrit (blood only) 37.7 % (42.0-52.0); Hemoglobin 12.8 g/dl (14.0-18.0); Immature Granulocytes # (auto) 0.03 K/uL (0.01-0.20); Immature Granulocytes % (auto) 0.4 %; Lymphocytes # (auto) 0.98 K/uL (1.2-3.4); Lymphocytes % (auto) 13.8 %; Mean Corpuscular Hemoglobin 31.2 pg (25.0-34.0); Mean Platelet Volume 11.5 fL (9.4-12.4); Monocytes # (auto) 0.57 K/uL (0.11-0.59); Neutrophils # (auto) 5.13 K/uL (1.40-6.50); Neutrophils % (auto) 72.5 %; Platelet Count 120 K/uL (130-400); RDW Coefficient of Variation 14.5 % (11.5-14.5); RDW Standard Deviation 48.7 fL (36.4-46.3); White Blood Count 7.09 K/ul (4.8-10.8)
--- NOTE | 2023-04-25 09:27 | CT Scan Report ---
UNENHANCED CT OF THE BRAIN; CT ANGIOGRAM OF THE BRAIN; CT ANGIOGRAM OF THE NECK CLINICAL HISTORY: Neurological deficit. Stroke like symptoms. Dizziness. COMPARISON STUDY: CT of the brain dated 09/25/2013. MRI of the brain dated 03/27/2015. CT of the cerv ical spine dated 09/25/2013. TECHNIQUE: Unenhanced axial CT scan of the brain is performed. Subsequently, following the IV adminis tration of 120 of [address] 320, CT angiogram of the head and neck was performed from the aortic arch t o the vertex. Images are reviewed in the axial, sagittal, and coronal planes. 3-D MIPS images are cre ated and assessed. IV contrast was administered without complication. All measurements were calculate d based on NASCET criteria. A dose lowering technique was utilized adhering to the principles of ALA RA. CT DOSE: 1146.52 mGy.cm FINDINGS: Brain parenchyma: There is age-related involutional change noting mild to moderate subcortical and pe riventricular microangiopathic disease. Again seen is a densely calcified mass in the left temporal f jordana. This measures 2.5 x 2.4 cm and is similar in appearance to the 2013 examination. This is typica l for a meningioma. There is minimal surrounding mass effect. No additional enhancing lesion is sugge sted on the angiographic phase images. There is no hemorrhage, midline shift, or evidence of acute te rritorial ischemia by CT criteria. The ventricles, sulci, and cisterns are prominent secondary to inv olutional change. No extra-axial fluid collection is seen. Thoracic aorta: There is atherosclerotic calcification of the thoracic aorta. Visualized portions of the thoracic aorta are normal in caliber. The aortic arch demonstrates standard 3-vessel anatomy. Right carotid arterial system: The right common carotid artery is widely patent, as are the right int ernal and external carotid arteries. Mild calcified plaque is noted in the carotid bulb. Left carotid arterial system: The left common carotid artery is widely patent, as are the left internal communications specialist al and external carotid arteries. Calcified plaque is noted in the carotid bulb. Vertebral arteries: The vertebral arteries are widely patent bilaterally and codominant. Subclavian arteries: Widely patent bilaterally. Intracranial vasculature: There is atherosclerotic calcification of the cavernous carotid and vertebr al arteries. The internal carotid arteries are patent at the skull base, as are the anterior and midd le cerebral arteries bilaterally. The vertebrobasilar system and posterior cerebral arteries are wide ly patent. The vertebral arteries are codominant. There is origin of the right posterior cerebr al artery. There is no aneurysm, high-grade stenosis, or focal vessel cut off seen throughout the int racranial circulation. Jugular veins: Patent bilaterally. Dural sinuses: Patent. Lung apices: Emphysematous change is noted at the apices. Upper lobe lung parenchyma is otherwise kamaljit ar as imaged. Soft tissues: The visualized pharyngeal soft tissues are normal in appearance noting angiographic pha se technique. The oropharyngeal airway appears widely patent. The thyroid gland is normal in size and heterogeneous in attenuation. The salivary glands are normal in appearance. Lobular soft tissue ante rior to the thyroid cartilage on image #176 measuring up to 2.5 cm has not appreciably changed dating back to 2013 and is of doubtful significance. No cervical lymphadenopathy is seen. Pacemaker leads a re noted at the thoracic inlet. Skeletal structures: The skeletal structures are osteopenic. The calvarium appears intact. The cervic al spine is maintained noting advanced multilevel spondylosis. No lytic or blastic lesion is seen. Orbits: The bony orbits are intact. Orbital contents are normal as visualized noting bilateral ocular lens implants. Sinuses and mastoids: There is moderate mucosal thickening within the frontal and ethmoid sinuses. Mi ld mucosal thickening is seen in the sphenoid and maxillary sinuses. The mastoid air cells are well p neumatized. IMPRESSION: 1. There is no hemorrhage, midline shift, or evidence of acute territorial ischemia by CT criteria. 2. A densely calcified meningioma in the left temporal fossa has not significantly changed dating fariba k to 2012. There is minimal surrounding mass effect. 3. Unremarkable CT angiogram of the brain. 4. Unremarkable CT angiogram of the neck. 5. Emphysema. 6. Additional findings as above. ACT 112: Negative or not required by law. Electronically signed by: Troy Armando M.D. 04/25/2023 9:24 AM
[2023-04-25 09:32] LABS: Albumin Globulin Ratio 1.4 (0.9-2); Albumin Level 3.6 gm/dl (3.4-5.0); BUN Creatinine Ratio 26.4 (10-20); Bilirubin,Total 0.6 mg/dl (0.2-1.0); Calcium 8.3 mg/dl (8.6-10.3); Creatinine Clr Calc Pharmacy 68.7 ml/min; Est GFR (African American) 89.9 ml/min; Est GFR (Non-African American) 77.6 ml/min; Globulin 2.6 gm/dl (2.5-4.0); Magnesium 1.9 mg/dl (1.7-2.4); Potassium 4.1 mmol/L (3.5-5.1); Total Protein 6.2 gm/dl (6.0-8.3)
[2023-04-25 09:39] LABS: Troponin I High Sensitivity 17.3 pg/ml (0-20)
[2023-04-25] MEDS ORDERED: MECLIZINE HCL 25 MG TAB PO STA (09:39)
[2023-04-25 09:42] LABS: INR 1.4 (0.9-1.1); Partial Thromboplastin Ratio 1.1; Partial Thromboplastin Time 30.5 Seconds (21.0-31.0); Prothrombin Time 15.3 Seconds (9.0-12.0)
--- NOTE | 2023-04-25 10:28 | History & Physical Report ---
Date of Service April 25, 2023 Assessment & Plan (1) Vertigo: Plan: -Admit to med/tele -Currently stable -Woke this am experiencing the sensation the the room is spinning and dizziness -No sensation of unilateral ear fullness, changes in hearing, taste, smell, no other neurologic symptoms -Resolved after a dose of meclizine in the ED -Symptoms are not reproducible with movement of head or changing positions to suggest BPPV or orthostatic symptoms -CT head/CTA head and negative are negative for acute findings; previously known meningioma is unchanged on CT today -No new arrhythmias on repeat ECG on admission -Will continue stroke/TIA workup including MRI of the freddie W/WO con if Pacemaker is MRI compatible >Spoke with MRI staff, will have to wait until tomorrow to try and obtain MRI of brain as they do not do MRI's with pacemakers over the weekend -Wiil continue to monitor on tele, repeat TTE, aspiration/fall precautions, PT/OT consults -Q4H neuro checks -Continue Xarelto, will also cover DVT PPX -HH, DMII diet as he passed his dysphagia screen -AM CBC, CMP, PT/INR, A1C, and lipid panel (2) Chest pain: Plan: -The patient has experienced 2 episodes of sharp, left-sided chest pain since arrival to the ED -No radiation of chest pain, no other associated symptoms, lasts for only a few seconds and resolves on it's own -Repeat ECG after second episode after admission shows afib with occasional ventricular paced complexes, possible incomplete RBBB, and no acute ST segment or T-wave changes -Initial high sen trop on arrival was WNL, will repeat a STAT 2 hour trop now, continue to monitor on tele -Follow TTE ordered on admission -Continue Xarelto, metoprolol, and statin (3) SOB (shortness of breath): Plan: -Patient with progressive SOB and DE JESUS over the past few months -No associated with his intermittent chest pain -Likely multifactorial including non-compliance with his daily prescribed PO lasix and not yet receiving the BID budesonide nebs ordered by Pulmonology after last clinic visit -Stable on RA, low suspicion for PE as he is on xarelto, without signs of DVT on exam, stable on RA, and hemodynamically stable -Will give him 40 mg IV lasix now, then restart 40 mg PO daily tomorrow -Will start his BID budesonide nebs along with his other breathing treatments while admitted, monitor for improvement of symptoms (4) Thrombocytopenia: Plan: -Noted to have a platelet count of 120 today -LFT's WNL -No signs of active bleeding -Lymphocyte count also low today, possible viral illness? 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 Kraft at the time of the admission History of Present Illness Chief Complaint: Stroke-like symptoms Primary Care Provider: Charbel De Paz, [employer] HTN, hyperlipidemia, diabetes mellitus type 2, COPD, history of meningioma, tachy-ifeoma syndrome S/P pacemaker placement, and paroxysmal atrial fibrillation on Xarelto who presented to the [facility] ED on 04/25/23 with complaints of dizziness, unsteady gait, nausea, and diaphoresis upon waking this am. In the ED the patient had an SpO2 of 87% on RA but was otherwise stable. Labs were significant for a HCT of 37, platelet count of 120, lymphocyte count of 0.98, INR of 1.4. Chest xray was read as 1. 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 2. Emphysema. 3. Bibasilar opacities could represent scarr ing/atelectasis versus pneumonia/aspiration pneumonitis. Clinical correlation will be required.. CT of the head and CTA of the head/neck were read as . There is no hemorrhage, midline shift, or evidence of acute territorial ischemia by CT criteria. 2. A densely calcified meningioma in the left temporal fossa has not significantly changed dating back to 2012. There is minimal surrounding mass effect. 3. Unremarkable CT angiogram of the brain. 4. Unremarkable CT angiogram of the neck. 5. Emphysema. 6. Additional findings as above.. Prior to admission the patient was given a dose of meclizine. At the time of the exam the patient was lying in bed in no acute distress with his sitting bedside, history was obtained from both. He states that when he woke up in bed this am he had the immediate sensation of dizziness. When asked, he states that he did feel as though the room was spinning, this made him feel off balance and unable to walk steadily. He denies changes in hearing, taste, smell, paresthesias, unilateral extremity weakness, chest pain, palpitation, or significant SOB during this episode. His was able to help him walk to the bathroom as he felt as though he needed to have a bowel movement. He then became diaphoretic and nauseous. He had one episode of non- bloody diarrhea and his nausea/diaphoresis resolved. Currently, his symptoms have resolved after receiving meclizine in the ED. He denies recent fever, chills, worsening of his chronic cough, changes in sputum production, abd pain, dysuria, hematuria, melena, LE swelling and recent falls/trauma. He has only had one previous episode like the one this am, however, this episode was significantly less severe and resolved spontaneously after a few minutes. He notes one episode of sharp, left sided chest pain, which occurred shortly before I entered the room. The patient states he was lying in bed when it occurred, the pain only lasted a few seconds and resolved. He denies any radiation of the pain and experienced no other symptoms. He denies any dizziness/vertigo symptoms with the chest pain. When asked, he states that he has had this chest pain intermittently over the past few months, it typically occurred at rest and is very short in duration. He notes increased SOB over the past few months, he has been getting more SOB/DE JESUS with typical activities. He has not been taking his prescribed 40 mg lasix daily for months as it impaired his quality of life with frequently urinating. After his last Pulmonology Clinic visit with Dr. Lea he was supposed to be prescribed BID Budesonide nebulizer treatments. He states that his pharmacy never received the order so he has not been on the budesonide. We had a long discussion regarding code status. The patient would like to be a DNR/DNI, his was in agreement with the decision. He would want his to make medical decisions for him if he could not make them himself. Please refer to Dr. Kraft's attestation for any changes to the treatment plan Allergies Allergy/AdvReac Type Severity Reaction Status Date / Time codeine Allergy Mild N/V Verified 09/03/22 11:20 naproxen AdvReac Mild GI UPSET Verified 09/03/22 11:20 zolpidem AdvReac Mild "WEIRD Verified 09/03/22 11:20 DREAMS" Home Medications Medication Instructions Recorded Confirmed Type rivaroxaban 20 mg tablet 20 mg PO QPM 09/29/19 04/25/23 History simvastatin 20 mg tablet 20 mg PO QPM 09/29/19 04/25/23 History Flutter Valve #1 ea 08/29/21 02/24/23 Rx metoprolol succinate 50 mg capsule 75 mg PO HS 08/29/21 04/25/23 History sprinkle, ext. release 24 hr trazodone 50 mg tablet 50 mg PO HS PRN Sleep 02/06/22 04/25/23 History Flutter Valve #1 ea 02/24/23 02/24/23 Rx albuterol sulfate 90 mcg/actuation 2 puff inhalation Q6H PRN 02/24/23 04/25/23 Rx aerosol inhaler shortness of breath or wheezing #18 grams budesonide 0.25 mg/2 mL suspension 0.25 mg (2 mL) inhalation BID #60 02/24/23 04/25/23 Rx for nebulization mL tiotropium 2.5 mcg-olodaterol 2.5 2 puff inhalation DAILY #4 grams 02/24/23 04/25/23 Rx mcg/actuation mist for inhalation (Stiolto Respimat) Lasix 40 mg PO DAILY 04/25/23 04/25/23 History Past Med/Surg History Medical History (Updated 04/25/23 @ 12:07 by Carmelo Diaz PA-C) Atrial fibrillation BPH (benign prostatic hyperplasia) COPD (chronic obstructive pulmonary disease) Diabetes mellitus, type 2 NIDDM History of colorectal cancer NO CHEMO/RADIATION HTN (hypertension) Hyperlipidemia Nephrolithiasis Obesity Pacemaker MEDTRONIC 2/2 TACHYBRADY; 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 PACER CHECK 05/26/18 Renal cyst Renal Mass Surgical History History of bilateral cataract extraction History of cardiac cath History of cardiac radiofrequency ablation 2016 History of carpal tunnel release B/L History of colectomy 2010 History of colonoscopy History of cystoscopy History of lithotripsy LITHOTRIPSY/ESWL History of permanent cardiac pacemaker placement 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 SINUS NODE DYSFUNCTION History of tonsillectomy History of tooth extraction History of total shoulder replacement RIGHT Family History Mother Family history of diabetes mellitus Social History Smoking Status: Former smoker Second Hand Exposure: No; Do You Dip or Chew Tobacco: No; Tobacco Cessation Education Requested by Patient: No Hx Alcohol Use: Yes Alcohol type: beer Hx Substance Use: No Preferred Language: Russian Communication Ability: Effective Visual Impairment: Limited Oil Scout Required: No Beliefs That Will Affect Care: None Current Living Situation: Spouse Other Information That Helps Us Care for You: No Feels Safe at Home: Yes Safety Concerns: Feels Safe At This Time Assistive Devices: Glasses Physical Exam Physical Exam: Physical Exam: General: In no acute distress, stated age, well-nourished, non-toxic appearing HEENT: Normocephalic, atraumatic, no scleral icterus, pupils around round, symmetrical, and reactive to light, moist mucus membranes, trachea midline, no thyromegaly Chest/Pulm: No respiratory distress, symmetrical chest expansion, crackles noted in the lower lung duron with expiratory wheezing in the upper lung duron BL Cardiac: irregular rate and rhythm, no murmurs noted Abdomen: Negative for ascites and bruising, normoactive bowel sounds, soft, non-tender to palpation throughout Musculoskeletal: Symmetrical and without signs of acute trauma, upper and lower extremities with full ROM, no atrophy, spasticity, or flaccidity Extremities: Radial, dorsalis pedis, and posterior tibial pulses are intact and symmetrical, no edema noted in the BL LE's Skin: Warm, dry, no rashes , lesions, or scars noted Neuro: Alert and oriented to person, place, month, year, and president, no focal defects, CN II-XII tested and intact, finger to nose test negative, no tremors noted Psych: No acute distress, calm and cooperative during the exam Results & Data Results & Data Vital Signs (Past 12 Hours) Vital Signs Temp Pulse Resp BP Pulse Ox O2 Del Method 04/25/23 08:25 80 04/25/23 08:31 87 L Nasal Cannula 04/25/23 08:24 36.4 C L 82 18 147/88 H 92 Room Air Laboratory Results Abnormal lab results 04/25/23 04/25/23 04/25/23 Range/Units 08:43 08:43 08:43 RBC 4.10 L (4.70-6.10) M/uL Hgb 12.8 L (14.0-18.0) g/dl POC Hgb (14.0-18.0) g/dl Hct 37.7 L (42.0-52.0) % POC Hct (42-52) % RDW Std Deviation 48.7 H (36.4-46.3) fL Plt Count 120 L (130-400) K/uL Lymph # (Auto) 0.98 L (1.2-3.4) K/uL PT 15.3 H (9.0-12.0) Seconds INR 1.4 H (0.9-1.1) POC BUN (7-18) mg/dl BUN/Creatinine Ratio 26.4 H (10-20) Glucose 225 H (70-99(Fasting)) mg/dl POC Glucose (other) (70-99) mg/dl Calcium 8.3 L (8.6-10.3) mg/dl B-Natriuretic Peptide (0-100) pg/ml Ur Specific [place] (1.000-1.030) Urine Glucose (UA) (Negative) Urine Blood (Negative) Urine RBC (Auto) (0-4) /hpf 04/25/23 04/25/23 04/25/23 Range/Units 08:43 08:44 10:26 RBC (4.70-6.10) M/uL Hgb (14.0-18.0) g/dl POC Hgb 13.3 L (14.0-18.0) g/dl Hct (42.0-52.0) % POC Hct 39 L (42-52) % RDW Std Deviation (36.4-46.3) fL Plt Count (130-400) K/uL Lymph # (Auto) (1.2-3.4) K/uL PT (9.0-12.0) Seconds INR (0.9-1.1) POC BUN 23 H (7-18) mg/dl BUN/Creatinine Ratio (10-20) Glucose (70-99(Fasting)) mg/dl POC Glucose (other) 232 H (70-99) mg/dl Calcium (8.6-10.3) mg/dl B-Natriuretic Peptide 222 H (0-100) pg/ml Ur Specific [place] > 1.045 H (1.000-1.030) Urine Glucose (UA) Trace H (Negative) Urine Blood 1+ H (Negative) Urine RBC (Auto) 5-10 H (0-4) /hpf Diagnostic Findings Chest X-Ray 04/25/23 08:27 SINGLE VIEW CHEST CLINICAL HISTORY: Neurological deficit. Stroke like symptoms. FINDINGS: 2 AP, portable, upright chest radiographs are compared to study dated 11/13/2019 and correlated with chest CT dated 08/01/2021. The examination is degraded by portable technique, apical lordotic positioning, and patient rotation. A 2-lead cardiac pacemaker is unchanged in position and partially obscures the left upper chest. The heart is enlarged noting atherosclerotic calcification of the thoracic aorta. There is pulmonary vascular congestion. Emphysema and chronic interstitial thickening is similar to previous. There are right basilar opacities. No large pleural effusion or Pneumothorax is seen. The skeletal structures are osteopenic. The bony thorax is grossly intact. A right shoulder arthroplasty is in place. IMPRESSION: 1. 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 2. Emphysema. 3. Bibasilar opacities could represent scarring/atelectasis versus pneumonia/aspiration pneumonitis. Clinical correlation will be required. ACT 112: Negative or not required by law. Electronically signed by: Troy Armando M.D. 04/25/2023 8:[address] 04/25/23 08:[address] OF THE BRAIN; CT ANGIOGRAM OF THE BRAIN; CT ANGIOGRAM OF THE NECK CLINICAL HISTORY: Neurological deficit. Stroke like symptoms. Dizziness. COMPARISON STUDY: CT of the brain dated 09/25/2013. MRI of the brain dated 03/27/2015. CT of the cervical spine dated 09/25/2013. TECHNIQUE: Unenhanced axial CT scan of the brain is performed. Subsequently, following the IV administration of 120 of Optiray 320, CT angiogram of the head and neck was performed from the aortic arch to the vertex. Images are reviewed in the axial, sagittal, and coronal planes. 3-D MIPS images are created and assessed. IV contrast was administered without complication. All measurements were calculated based on NASCET criteria. A dose lowering technique was utilized adhering to the principles of ALARA. CT DOSE: 1146.52 mGy.cm FINDINGS: Brain parenchyma: There is age-related involutional change noting mild to moderate subcortical and periventricular microangiopathic disease. Again seen is a densely calcified mass in the left temporal fossa. This measures 2.5 x 2.4 cm and is similar in appearance to the 2013 examination. This is typical for a meningioma. There is minimal surrounding mass effect. No additional enhancing lesion is suggested on the angiographic phase images. There is no hemorrhage, midline shift, or evidence of acute territorial ischemia by CT criteria. The ventricles, sulci, and cisterns are prominent secondary to involutional change. No extra-axial fluid collection is seen. Thoracic aorta: There is atherosclerotic calcification of the thoracic aorta. Visualized portions of the thoracic aorta are normal in caliber. The aortic arch demonstrates standard 3-vessel anatomy. Right carotid arterial system: The right common carotid artery is widely patent, as are the right internal and external carotid arteries. Mild calcified plaque is noted in the carotid bulb. Left carotid arterial system: The left common carotid artery is widely patent, as are the left internal and external carotid arteries. Calcified plaque is noted in the carotid bulb. Vertebral arteries: The vertebral arteries are widely patent bilaterally and codominant. Subclavian arteries: Widely patent bilaterally. Intracranial vasculature: There is atherosclerotic calcification of the cav ernous carotid and vertebral arteries. The internal carotid arteries are patent at the skull base, as are the anterior and middle cerebral arteries bilaterally. The vertebrobasilar system and posterior cerebral arteries are widely patent. The vertebral arteries are codominant. There is origin of the right posterior cerebral artery. There is no aneurysm, high-grade stenosis, or focal vessel cut off seen throughout the intracranial circulation. Jugular veins: Patent bilaterally. Dural sinuses: Patent. Lung apices: Emphysematous change is noted at the apices. Upper lobe lung parenchyma is otherwise clear as imaged. Soft tissues: The visualized pharyngeal soft tissues are normal in appearance noting angiographic phase technique. The oropharyngeal airway appears widely patent. The thyroid gland is normal in size and heterogeneous in attenuation. The salivary glands are normal in appearance. Lobular soft tissue anterior to the thyroid cartilage on image #176 measuring up to 2.5 cm has not appreciably changed dating back to 2012 and is of doubtful significance. No cervical lymphadenopathy is seen. Pacemaker leads are noted at the thoracic inlet. Skeletal structures: The skeletal structures are osteopenic. The calvarium appears intact. The cervical spine is maintained noting advanced multilevel spondylosis. No lytic or blastic lesion is seen. Orbits: The bony orbits are intact. Orbital contents are normal as visualized noting bilateral ocular lens implants. Sinuses and mastoids: There is moderate mucosal thickening within the frontal and ethmoid sinuses. Mild mucosal thickening is seen in the sphenoid and maxillary sinuses. The mastoid air cells are well pneumatized. IMPRESSION: 1. There is no hemorrhage, midline shift, or evidence of acute territorial ischemia by CT criteria. 2. A densely calcified meningioma in the left temporal fossa has not significantly changed dating back to 2012. There is minimal surrounding mass effect. 3. Unremarkable CT angiogram of the brain. 4. Unremarkable CT angiogram of the neck. 5. Emphysema. 6. Additional findings as above. ACT 112: Negative or not required by law. Electronically signed by: Troy Armando M.D. 04/25/2023 9:24 AM Head CTA 04/25/23 08:[address] OF THE BRAIN; CT ANGIOGRAM OF THE BRAIN; CT ANGIOGRAM OF THE NECK CLINICAL HISTORY: Neurological deficit. Stroke like symptoms. Dizziness. COMPARISON STUDY: CT of the brain dated 09/25/2013. MRI of the brain dated 03/27/2015. CT of the cervical spine dated 09/25/2013. TECHNIQUE: Unenhanced axial CT scan of the brain is performed. Subsequently, following the IV administration of 120 of Optiray 320, CT angiogram of the head and neck was performed from the aortic arch to the vertex. Images are reviewed in the axial, sagittal, and coronal planes. 3-D MIPS images are created and assessed. IV contrast was administered without complication. All measurements were calculated based on NASCET criteria. A dose lowering technique was utilized adhering to the principles of ALARA. CT DOSE: 1146.52 mGy.cm FINDINGS: Brain parenchyma: There is age-related involutional change noting mild to moderate subcortical and periventricular microangiopathic disease. Again seen is a densely calcified mass in the left temporal fossa. This measures 2.5 x 2.4 cm and is similar in appearance to the 2013 examination. This is typical for a meningioma. There is minimal surrounding mass effect. No additional enhancing lesion is suggested on the angiographic phase images. There is no hemorrhage, m idline shift, or evidence of acute territorial ischemia by CT criteria. The ventricles, sulci, and cisterns are prominent secondary to involutional change. No extra-axial fluid collection is seen. Thoracic aorta: There is atherosclerotic calcification of the thoracic aorta. Visualized portions of the thoracic aorta are normal in caliber. The aortic arch demonstrates standard 3-vessel anatomy. Right carotid arterial system: The right common carotid artery is widely patent, as are the right internal and external carotid arteries. Mild calcified plaque is noted in the carotid bulb. Left carotid arterial system: The left common carotid artery is widely patent, as are the left internal and external carotid arteries. Calcified plaque is noted in the carotid bulb. Vertebral arteries: The vertebral arteries are widely patent bilaterally and codominant. Subclavian arteries: Widely patent bilaterally. Intracranial vasculature: There is atherosclerotic calcification of the cavernous carotid and vertebral arteries. The internal carotid arteries are patent at the skull base, as are the anterior and middle cerebral arteries bilaterally. The vertebrobasilar system and posterior cerebral arteries are widely patent. The vertebral arteries are codominant. There is origin of the right posterior cerebral artery. There is no aneurysm, high-grade stenosis, or focal vessel cut off seen throughout the intracranial circulation. Jugular veins: Patent bilaterally. Dural sinuses: Patent. Lung apices: Emphysematous change is noted at the apices. Upper lobe lung parenchyma is otherwise clear as imaged. Soft tissues: The visualized pharyngeal soft tissues are normal in appearance noting angiographic phase technique. The oropharyngeal airway appears widely patent. The thyroid gland is normal in size and heterogeneous in attenuation. The salivary glands are normal in appearance. Lobular soft tissue anterior to the thyroid cartilage on image #176 measuring up to 2.5 cm has not appreciably changed dating back to 2012 and is of doubtful significance. No cervical lymphadenopathy is seen. Pacemaker leads are noted at the thoracic inlet. Skeletal structures: The skeletal structures are osteopenic. The calvarium appears intact. The cervical spine is maintained noting advanced multilevel spondylosis. No lytic or blastic lesion is seen. Orbits: The bony orbits are intact. Orbital contents are normal as visualized noting bilateral ocular lens implants. Sinuses and mastoids: There is moderate mucosal thickening within the frontal and ethmoid sinuses. Mild mucosal thickening is seen in the sphenoid and maxillary sinuses. The mastoid air cells are well pneumatized. IMPRESSION: 1. There is no hemorrhage, midline shift, or evidence of acute territorial ischemia by CT criteria. 2. A densely calcified meningioma in the left temporal fossa has not significantly changed dating back to 2012. There is minimal surrounding mass effect. 3. Unremarkable CT angiogram of the brain. 4. Unremarkable CT angiogram of the neck. 5. Emphysema. 6. Additional findings as above. ACT 112: Negative or not required by law. Electronically signed by: Troy Armando M.D. 04/25/2023 9:24 AM Neck CTA 04/25/23 08:[address] OF THE BRAIN; CT ANGIOGRAM OF THE BRAIN; CT ANGIOGRAM OF THE NECK CLINICAL HISTORY: Neurological deficit. Stroke like symptoms. Dizziness. COMPARISON STUDY: CT of the brain dated 09/25/2013. MRI of the brain dated 03/27/2015. CT of the cervical spine dated 09/25/2013. TECHNIQUE: Unenhanced axial CT scan of the brain is performed. Subsequently, following the IV administration of 120 of Optiray 320, CT angiogram of the head and neck was performed from the aortic arch to the vertex. Images are reviewed in the axial, sagittal, and coronal planes. 3-D MIPS images are created and assessed. IV contrast was administered without complication. All measurements were calculated based on NASCET criteria. A dose lowering technique was utilized adhering to the principles of ALARA. CT DOSE: 1146.52 mGy.cm FINDINGS: Brain parenchyma: There is age-related involutional change noting mild to mo derate subcortical and periventricular microangiopathic disease. Again seen is a densely calcified mass in the left temporal fossa. This measures 2.5 x 2.4 cm and is similar in appearance to the 2013 examination. This is typical for a meningioma. There is minimal surrounding mass effect. No additional enhancing lesion is suggested on the angiographic phase images. There is no hemorrhage, midline shift, or evidence of acute territorial ischemia by CT criteria. The ventricles, sulci, and cisterns are prominent secondary to involutional change. No extra-axial fluid collection is seen. Thoracic aorta: There is atherosclerotic calcification of the thoracic aorta. Visualized portions of the thoracic aorta are normal in caliber. The aortic arch demonstrates standard 3-vessel anatomy. Right carotid arterial system: The right common carotid artery is widely patent, as are the right internal and external carotid arteries. Mild calcified plaque is noted in the carotid bulb. Left carotid arterial system: The left common carotid artery is widely patent, as are the left internal and external carotid arteries. Calcified plaque is noted in the carotid bulb. Vertebral arteries: The vertebral arteries are widely patent bilaterally and codominant. Subclavian arteries: Widely patent bilaterally. Intracranial vasculature: There is atherosclerotic calcification of the cavernous carotid and vertebral arteries. The internal carotid arteries are patent at the skull base, as are the anterior and middle cerebral arteries bilaterally. The vertebrobasilar system and posterior cerebral arteries are widely patent. The vertebral arteries are codominant. There is origin of the right posterior cerebral artery. There is no aneurysm, high-grade stenosis, or focal vessel cut off seen throughout the intracranial circulation. Jugular veins: Patent bilaterally. Dural sinuses: Patent. Lung apices: Emphysematous change is noted at the apices. Upper lobe lung parenchyma is otherwise clear as imaged. Soft tissues: The visualized pharyngeal soft tissues are normal in appearance noting angiographic phase technique. The oropharyngeal airway appears widely patent. The thyroid gland is normal in size and heterogeneous in attenuation. The salivary glands are normal in appearance. Lobular soft tissue anterior to the thyroid cartilage on image #176 measuring up to 2.5 cm has not appreciably changed dating back to 2013 and is of doubtful significance. No cervical lymphadenopathy is seen. Pacemaker leads are noted at the thoracic inlet. Skeletal structures: The skeletal structures are osteopenic. The calvarium appears intact. The cervical spine is maintained noting advanced multilevel spondylosis. No lytic or blastic lesion is seen. Orbits: The bony orbits are intact. Orbital contents are normal as visualized noting bilateral ocular lens implants. Sinuses and mastoids: There is moderate mucosal thickening within the frontal and ethmoid sinuses. Mild mucosal thickening is seen in the sphenoid and maxillary sinuses. The mastoid air cells are well pneumatized. IMPRESSION: 1. There is no hemorrhage, midline shift, or evidence of acute territorial ischemia by CT criteria. 2. A densely calcified meningioma in the left temporal fossa has not significantly changed dating back to 2012. There is minimal surrounding mass effect. 3. Unremarkable CT angiogram of the brain. 4. Unremarkable CT angiogram of the neck. 5. Emphysema. 6. Additional findings as above. ACT 112: Negative or not required by law. Electronically signed by: Troy Armando M.D. 04/25/2023 9:24 AM ECG Additional Comments: Undetermined rhythm Right superior axis deviation Incomplete right bundle branch block Right ventricular hypertrophy Cannot rule out Anterior infarct (cited on or before 15-NOV-2019) Abnormal ECG When compared with ECG of 15-NOV-2019 21:44, Current undetermined rhythm precludes rhythm comparison, needs review Incomplete right bundle branch block is now Present Questionable change in initial forces of Anteroseptal leads Code Status & VTE Plan Code Status DNR/DNI VTE Prophylaxis Plan VTE Prophylaxis will be ordered: Yes Supervising Physician Co-Signing Physician Notes I personally saw and examined the patient. I verified all kauffman points and agree with Carmelo Diaz PA-C with the following exceptions and/or additions: 87 year old male presents to the ER with new onset vertigo starting around 6:30am. No other stroke-like symptoms. Symptoms completely resolved when seen after admission. 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
[2023-04-25] MEDS ORDERED: GLUCOSE 40% GEL 15 GM TUBE PO PRN (10:30)
[2023-04-25] MEDS ORDERED: GLUCAGON FOR INJ 1 MG VIAL SQ PRN (10:30)
[2023-04-25] MEDS ORDERED: GLUCOSE 10 TAB/TUBE PO PRN (10:30)
[2023-04-25] MEDS ORDERED: PHARMACIST DISCHARGE MED REC CONSULT PRN (10:30)
[2023-04-25] MEDS ORDERED: CARBOHYDRATES FOR HYPOGLYCEMIA PO PRN (10:30)
[2023-04-25] MEDS ORDERED: DEXTROSE 50% 50 ML SYRINGE IV PRN (10:30)
[2023-04-25 10:46] LABS: Appearance Urine Clear (Clear); Bacteria Urine Automated Negative (Negative); Bilirubin Urine Negative (Negative); Blood Urine 1+ (Negative); Color Urine Yellow; Epithelial Cell Urine Auto 0-5 /lpf (0-5); Glucose Urine UA Trace (Negative); Ketones Urine Negative (Negative); Leukocyte Esterase Urine Negative (Negative); Nitrite Urine Negative (Negative); Protein Urine Negative (Negative); Specific Gravity Urine > 1.045 (1.000-1.030); Urobilinogen Urine Negative (Negative)
[2023-04-25] MEDS ORDERED: BUDESONIDE 0.25 MG/2 ML VIAL (PULMICORT) NEB PRN (11:06)
[2023-04-25] MEDS ORDERED: FUROSEMIDE 40 MG/4 ML VIAL IV ONE (11:30)
[2023-04-25] MEDS ORDERED: ACETAMINOPHEN 325 MG TAB PO PRN (11:30)
[2023-04-25] MEDS ORDERED: ALBUTEROL HFA 8 GM INHALER INH PRN (11:30)
[2023-04-25] MEDS ORDERED: traZODone HCL 50 MG TAB PO PRN (11:30)
[2023-04-25 11:37] LABS: Adenovirus PCR Not Detected (NotDetected); Bordetella parapertussis PCR Not Detected (NotDetected); Bordetella pertussis PCR Not Detected (NotDetected); Chlamydia pneumoniae PCR Not Detected (NotDetected); Coronavirus 229E PCR Not Detected (NotDetected); Coronavirus CoV-2 (COVID19)PCR Not Detected (NotDetected); Coronavirus HKU1 PCR Not Detected (NotDetected); Coronavirus NL63 PCR Not Detected (NotDetected); Coronavirus OC43PCR Not Detected (NotDetected); Human Metapneumovirus PCR Not Detected (NotDetected); Influenza A PCR Not Detected (NotDetected); Influenza B PCR Not Detected (NotDetected); Mycoplasma pneumoniae PCR Not Detected (NotDetected); Parainfluenza Virus 1 PCR Not Detected (NotDetected); Parainfluenza Virus 2 PCR Not Detected (NotDetected); Parainfluenza Virus 3 PCR Not Detected (NotDetected); Parainfluenza Virus 4 PCR Not Detected (NotDetected); Respiratory Syncytial VirusPCR Not Detected (NotDetected); Rhinovirus/Enterovirus PCR Not Detected (NotDetected)
[2023-04-25] MEDS: INSULIN ASPART PER UNIT CHARGE SC SCH ×3 (12:32→20:54)
[2023-04-25] MEDS: LANTUS PER UNIT CHARGE SQ SCH (20:59)
[2023-04-25] MEDS ORDERED: METOPROLOL SUCC 25MG EXT REL TAB PO SCH (21:00)
[2023-04-25] MEDS ORDERED: SIMVASTATIN 20 MG TAB PO SCH (21:00)
[2023-04-25] MEDS ORDERED: RIVAROXABAN 20 MG TAB PO SCH (21:00)
[2023-04-26 06:38] LABS: Basophils # (auto) 0.07 K/uL (0-0.2); Basophils % (auto) 0.9 %; Eosinophils # (auto) 0.37 K/uL (0-0.50); Eosinophils % (auto) 4.7 %; Hematocrit (blood only) 40.8 % (42.0-52.0); Hemoglobin 13.6 g/dl (14.0-18.0); Immature Granulocytes # (auto) 0.04 K/uL (0.01-0.20); Immature Granulocytes % (auto) 0.5 %; Lymphocytes # (auto) 1.63 K/uL (1.2-3.4); Lymphocytes % (auto) 20.9 %; Mean Corpuscular Hemoglobin 30.7 pg (25.0-34.0); Mean Corpuscular Hgb Conc 33.3 g/dL (32.0-36.0); Mean Corpuscular Volume 92.1 fL (80.0-100.0); Mean Platelet Volume 10.8 fL (9.4-12.4); Monocytes # (auto) 0.78 K/uL (0.11-0.59); Neutrophils # (auto) 4.91 K/uL (1.40-6.50); Platelet Count 147 K/uL (130-400); RDW Coefficient of Variation 14.4 % (11.5-14.5); RDW Standard Deviation 48.8 fL (36.4-46.3); Red Blood Count 4.43 M/uL (4.70-6.10)
[2023-04-26 06:56] LABS: Albumin Globulin Ratio 1.4 (0.9-2); Albumin Level 3.7 gm/dl (3.4-5.0); BUN Creatinine Ratio 21.9 (10-20); Bilirubin,Total 0.8 mg/dl (0.2-1.0); Calcium 9.1 mg/dl (8.6-10.3); Chol HDL Ratio 2.5 (0-5); Creatinine Clr Calc Pharmacy 52.4 ml/min; Est GFR (African American) 66.6 ml/min; Est GFR (Non-African American) 57.5 ml/min; Globulin 2.7 gm/dl (2.5-4.0); Potassium 4.1 mmol/L (3.5-5.1); Total Protein 6.4 gm/dl (6.0-8.3)
[2023-04-26 06:59] LABS: INR 1.5 (0.9-1.1); Prothrombin Time 15.6 Seconds (9.0-12.0)
[2023-04-26 07:15] LABS: Estimated Average Glucose 192 mg/dl; Hemoglobin A1C 8.3 % (4.5-5.6)
[2023-04-26] MEDS: INSULIN ASPART PER UNIT CHARGE SC SCH (08:15)
[2023-04-26] MEDS: LANTUS PER UNIT CHARGE SQ SCH (08:15)
[2023-04-26] MEDS ORDERED: FUROSEMIDE 40 MG TAB PO SCH (09:00)
[2023-04-26] MEDS ORDERED: UMECLIDINIUM/VILANTEROL 62.5/25MCG 7 PUFFS/INHALER INH SCH (09:00)
[2023-04-26] MEDS ORDERED: GADOBUTROL 65ML VIAL IV ONE (10:09)
--- NOTE | 2023-04-26 11:15 | XCELERA ---
[id number] \\[email or web address]_[email or web address]\[id number]}___[id number]
--- NOTE | 2023-04-26 11:31 | Magnetic Resonance Report ---
MR brain wo/w con HISTORY: 87 years-old Male stroke symptoms, known meningioma acute stroke like symptoms COMPARISON: Head CT 04/25/2023, brain MRI 03/27/2015 TECHNIQUE: Multiplanar multisequence MRI of the brain was obtained both with and without the use of I V contrast. FINDINGS: There is no restricted diffusion. Degenerative changes of the midcervical spine. Midline structures a re unremarkable. No acute intracranial hemorrhage, midline shift, abnormal extra-axial collection, hy drocephalus or intra-axial mass. Involutional changes with mild T2/FLAIR hyperintense foci throughout the white matter. Enhancing calcified extra-axial lesion of the anterior left middle cranial fossa o n image 11 series 9 measures 2.7 x 2.4 x 3.0 cm, similar in size to the 2015 study. Again there is mi ld mass effect upon the left temporal lobe with mild left frontotemporal vasogenic edema. No abnormal intra-axial enhancement. Cerebral venous sinuses and major arterial flow voids appear patent. The skull, orbits and soft tissu es are unremarkable. Prior bilateral lens repair. Mild mucosal thickening of the paranasal sinuses. M astoid air cells are clear. IMPRESSION: 1. No acute intracranial abnormality. No acute or subacute infarct. 2. 3 cm left middle cranial fossa meningioma is similar in appearance to the 2015 study. 3. Involutional changes with mild chronic microvascular ischemic disease. ACT 112: Negative or not required by law. The above report was generated using voice recognition software. It may contain grammatical, syntax o r spelling errors. Electronically signed by: Tim Sierra M.D. 04/26/2023 11:29 AM
--- NOTE | 2023-04-26 11:47 | Discharge Summary ---
Date of Service April 26, 2023 Admission HPI Per Admitting Provider HTN, hyperlipidemia, diabetes mellitus type 2, COPD, history of meningioma, tachy-ifeoma syndrome S/P pacemaker placement, and paroxysmal atrial fibrillation on Xarelto who presented to the [facility] ED on 04/25/23 with complaints of dizziness, unsteady gait, nausea, and diaphoresis upon waking this am. In the ED the patient had an SpO2 of 87% on RA but was otherwise stable. Labs were significant for a HCT of 37, platelet count of 120, lymphocyte count of 0.98, INR of 1.4. Chest xray was read as 1. 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 2. Emphysema. 3. Bibasilar opacities could represent scarring/atelectasis versus pneumonia/aspiration pneumonitis. Clinical correlation will be required.. CT of the head and CTA of the head/neck were read as . There is no hemorrhage, midline shift, or evidence of acute territorial ischemia by CT criteria. 2. A densely calcified meningioma in the left temporal fossa has not significantly changed dating back to 2012. There is minimal surrounding mass effect. 3. Unremarkable CT angiogram of the brain. 4. Unremarkable CT angiogram of the neck. 5. Emphysema. 6. Additional findings as above.. Prior to admission the patient was given a dose of meclizine. At the time of the exam the patient was lying in bed in no acute distress with his sitting bedside, history was obtained from both. He states that when he woke up in bed this am he had the immediate sensation of dizziness. When asked, he states that he did feel as though the room was spinning, this made him feel off balance and unable to walk steadily. He denies changes in hearing, taste, smell, paresthesias, unilateral extremity weakness, chest pain, palpitation, or significant SOB during this episode. His was able to help him walk to the bathroom as he felt as though he needed to have a bowel movement. He then became diaphoretic and nauseous. He had one episode of non- bloody diarrhea and his nausea/diaphoresis resolved. Currently, his symptoms have resolved after receiving meclizine in the ED. He denies recent fever, chills, worsening of his chronic cough, changes in sputum production, abd pain, dysuria, hematuria, melena, LE swelling and recent falls/trauma. He has only had one previous episode like the one this am, however, this episode was significantly less severe and resolved spontaneously after a few minutes. He notes one episode of sharp, left sided chest pain, which occurred shortly before I entered the room. The patient states he was lying in bed when it occurred, the pain only lasted a few seconds and resolved. He denies any radiation of the pain and experienced no other symptoms. He denies any dizziness/vertigo symptoms with the chest pain. When asked, he states that he has had this chest pain intermittently over the past few months, it typically occurred at rest and is very short in duration. He notes increased SOB over the past few months, he has been getting more SOB/DE JESUS with typical activities. He has not been taking his prescribed 40 mg lasix daily for months as it impaired his quality of life with frequently urinating. After his last Pulmonology Clinic visit with Dr. Lea he was supposed to be prescribed BID Budesonide nebulizer treatments. He states that his pharmacy never received the order so he has not been on the budesonide. We had a long discussion regarding code status. The patient would like to be a DNR/DNI, his was in agreement with the decision. He would want his to make medical decisions for him if he could not make them himself. Principal Diagnosis vertigo Discharge Exam The patient is awake, alert and oriented 3, well developed and well nourished, normocephalic and atraumatic, lying in bed and in no acute distress. HEENT--PERRL, EOMI, mucous membranes and oropharynx mildly dry Neck--supple. No JVD. No bruits. Thyroid normal, trachea midline, no adenopathy. Heart--normal S1 and S2. No murmurs, rubs or gallops. Lungs--clear bilaterally, no respiratory distress, no accessory muscle use. Abdomen--normal bowel sounds and soft. Mild epigastric and left sided abdominal pain Extremities--no cyanosis or clubbing. No edema. Dermatologic--normal skin turgor, normal color, no abnormal lymph nodes, no rash. Neurologic--cranial nerves II through XII grossly intact. Rheumatologic--normal range of motion. Psychiatric--normal affect. Discharge Data Allergies Allergy/AdvReac Type Severity Reaction Status Date / Time codeine Allergy Mild N/V Verified 09/03/22 11:20 naproxen AdvReac Mild GI UPSET Verified 09/03/22 11:20 zolpidem AdvReac Mild "WEIRD Verified 09/03/22 11:20 DREAMS" Consultations 04/25/23 10:27 ED Decision to Admit Stat Ordered Studies 04/25/23 08:27 CT angio head w con Stat CT angio neck with con Stat CT head/brain wo con Stat 04/26/23 09:03 MR brain wo/w con Urgent Hospital Course (1) Vertigo: -Woke experiencing the sensation the the room is spinning and dizziness -No sensation of unilateral ear fullness, changes in hearing, taste, smell, no other neurologic symptoms -Resolved after a dose of meclizine in the ED -Symptoms are not reproducible with movement of head or changing positions to suggest BPPV or orthostatic symptoms -CT head/CTA head and negative are negative for acute findings; previously known meningioma is unchanged on CT today -No new arrhythmias on repeat ECG on admission -MRI did not show any acute pathology -Vertigo resolved -D/C home (2) Chest pain: -The patient has experienced 2 episodes of sharp, left-sided chest pain since arrival to the ED -No radiation of chest pain, no other associated symptoms, lasts for only a few seconds and resolves on it's own -Repeat ECG after second episode after admission shows afib with occasional ventricular paced complexes, possible incomplete RBBB, and no acute ST segment or T-wave changes -Initial high sen trop on arrival was WNL, will repeat a STAT 2 hour trop now, continue to monitor on tele -Follow TTE ordered on admission -Continue Xarelto, metoprolol, and statin (3) SOB (shortness of breath): -Patient with progressive SOB and DE JESUS over the past few months -No associated with his intermittent chest pain -Likely multifactorial including non-compliance with his daily prescribed PO lasix and not yet receiving the BID budesonide nebs ordered by Pulmonology after last clinic visit -Stable on RA, low suspicion for PE as he is on xarelto, without signs of DVT on exam, stable on RA, and hemodynamically stable -Will give him 40 mg IV lasix now, then restart 40 mg PO daily tomorrow -Will start his BID budesonide nebs along with his other breathing treatments while admitted, monitor for improvement of symptoms (4) Thrombocytopenia: -Noted to have a platelet count of 120 today -LFT's WNL -No signs of active bleeding -Lymphocyte count also low today, possible viral illness? -Follow full resp biofire and monitro am CBC (5) Atrial fibrillation: -Stable -Continue Xarelto and metoprolol (6) COPD (chronic obstructive pulmonary disease): -Stable on RA -Will start BID Budesonide nebs -Continue tiotropium-olodaterol and prn albuterol (7) Hyperlipidemia: -Continue statin (8) Meningioma: -Appears stabel on CT head today -Follow MRI of the brain if Pacemaker is MRI compatibel (9) Tachy-ifeoma syndrome: -S/P pacemaker placement -Continue to monitor on tele (10) Diabetes mellitus, type 2: -Patient states he was prescribed a medication by the [place] that ends in "Gliptin", not on current med list or [facility] -For now will monitor BSG ACHS, goal is 110-140 -5 units lantus BID with CF of 50 and CR of 15 -Monitor am Hgb A1C along with AM lipid panel -HH, DMII diet -Adjust regimen as needed Plan d/c home Total Time Total Time Spent Total Time Spent (In Minutes): 35 Discharge Plan Discharge Items Patient Disposition: Home - Self-Care Reason For Visit: ILLNESS Discharge Diagnosis: vertigo Activity: Resume your previous activity Non-emergency contact: Primary Care Provider Call non-emergency contact if: you have any medication questions Follow-up/Referrals: Charbel De Paz, [employer] [Primary Care Provider] - Diet: Regular Addtl Attending Provider Instructions: please follow up with your regular PCP Pending Studies at Discharge: No Stand-Alone Forms: My [employer], Smoking Cessation Medications and DC Order Prescriptions: Continued (DME) Flutter Valve Device See Rx Instructions .MEDSUPPLY Qty: 1 0RF Rx Instructions: Use it every 6 hours when awake. trazodone 50 mg tablet 50 mg PO HS PRN (Reason: Sleep) Stiolto Respimat 2.5-2.5 mcg/actuation mist 2 puff INH DAILY Qty: 4 12RF budesonide 0.25 mg/2 mL suspension for nebulization 0.25 mg inhalation BID Qty: 60 0RF albuterol sulfate 90 mcg/actuation HFA aerosol inhaler 2 puff INH Q6H PRN (Reason: shortness of breath or wheezing) Qty: 18 4RF (DME) Flutter Valve Device See Rx Instructions .MEDSUPPLY Qty: 1 0RF Rx Instructions: Use it every 6 hours when awake. metoprolol succinate 50 mg capsule,sprinkle,ER 24hr 75 mg PO HS simvastatin 20 mg Tablet 20 mg PO QPM rivaroxaban 20 mg Tablet 20 mg PO QPM Lasix 40 mg PO DAILY Discharge Orders: Discharge Order (Routine); Ordered 04/26/23 Ordered By: Felipe Huang/Other Patient Handouts: Managing Type 2 Diabetes Admission Data Admit Date/Time: 04/25/23 10:29 Attending Provider: Felipe Mathis Admit Provider: Simon Kraft Primary Care Provider: Charbel De Paz Other Providers: Simon Kraft Coding Level of Care Code 14569 INP/OBS DISCH >30 MIN Diagnoses Vertigo R42 Chest pain R07.9 SOB (shortness of breath) R06.02 Thrombocytopenia D69.6 Atrial fibrillation I48.91 COPD (chronic obstructive pulmonary disease) J44.9 Hyperlipidemia E78.5 Meningioma D32.9 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
--- NOTE | 2023-04-26 12:51 | Electrocardiogram Report ---
Test Reason : Blood Pressure : / mmHG Vent. Rate : 074 BPM Atrial Rate : 079 BPM P-R Int : 000 ms QRS Dur : 098 ms QT Int : 418 ms P-R-T Axes : 000 239 010 degrees QTc Int : 463 ms Probable Sinus rhythm ventricular-paced complexes Left axis deviation Incomplete right bundle branch block Cannot rule out Anterior infarct (cited on or before 15-NOV-2019) Abnormal ECG When compared with ECG of 15-NOV-2019 21:44, Incomplete right bundle branch block is now Present Questionable change in initial forces of Anteroseptal leads Confirmed by Lorenzo Jones ([id number]) on 04/26/2023 12:51:09 PM Referred By: REFERRED SELF Confirmed By:Lorenzo Jones
--- NOTE | 2023-04-27 09:41 | Electrocardiogram Report ---
Test Reason : Blood Pressure : / mmHG Vent. Rate : 079 BPM Atrial Rate : 000 BPM P-R Int : 000 ms QRS Dur : 096 ms QT Int : 396 ms P-R-T Axes : 000 229 -11 degrees QTc Int : 454 ms Atrial fibrillation with occasional ventricular-paced complexes Right superior axis deviation Incomplete right bundle branch block Cannot rule out Anterior infarct , age undetermined Abnormal ECG When compared with ECG of 25-APR-2023 08:27, Vent. rate has increased BY 5 BPM Confirmed by Lorenzo Jones ([id number]) on 04/27/2023 9:41:34 AM Referred By: REFERRED SELF Confirmed By:Lorenzo Jones
== END 2023-04-26 12:47 | disposition home or self-care (01) ==
LOC: 2N 08:18 → ED 08:18 → SUATTDRO 10:29 → 2N 11:18